=== PATIENT | female | born 1965 | race Caucasian/White ===

== ENCOUNTER → 2016-09-08 | Outpatient (CLI) | payer OTHER ==
[~2016-09-08] MED LIST: /BACL20TA OR; /DULO30CA OR; /PANT40TA; /PANT40TA PO; /ROPI5TA OR; ABIL2TAB OR; ACET500C OR; AMBIEN PO; BACL-67 PO; BENA25CA2 PO; BISA5TAB64 PO; CLON0.1D3 TD; CLON1PA TD; CLON2PA TD; COGE1INJ OR; COLA50CA OR; COZA1TAB PO; CYMB1CAP4 PO; DIAZ2TAB PO; DIAZ5TAB OR; DIAZ5TAB PO; DOXY100T16 PO; DOXY20TA; FOSI1TAB8 PO; HUMA100I5 SC; IBUP800T23 PO; IBUPOTC PO; IMIT5SPR OR; INSUDET SC; INSUHUMDS SC; K-TA1TAB PO; LASI20TA OR; LIDO5DIS TOP; LYRI150C OR; MORP30TASA PO; MS C15TA5 OR; MYLASSUD PO; NYST100024 TOP; PERC5TAB8; PERC7.5T3 PO; PERCOCET PO; PRIL20CA OR; ROPI1TAB PO; TAGA200T PO; THERGRAN OR; TIZA4CAP3 PO; TIZA4TAB OR; TRAM50TA2 OR; TYLENOL #3 OR; VALI2TAB PO; VALI5TAB PO; VICO5TAB OR; VICO5TAB PO; VITAMIN B COMPLE1 OR; VOLT1GEL EX; [UNRECOGNIZED DRUG - OTHER] TOP; [UNRECOGNIZED DRUG - SUPPLY] VI; benedryl PO; ibuprofen PO
== END ==
LOC: M LAB 08:11
PROVIDERS: ATTEND Internal Medicine Endocrinology, Diabetes & Metabolism
DX: R63.5 Abnormal weight gain (principal); Z79.899 Other long term (current) drug therapy
CPT/HCPCS: 36415; 82533; G0480

== ENCOUNTER 2016-09-18 12:42 | Emergency (ER) | payer OTHER ==
[2016-09-18] MEDS ORDERED: CLINDAMYCIN INJ 900MG/6ML VIAL As Ordered ONE (14:20)
[2016-09-18] MEDS ORDERED: MORPHINE 4 MG/ML 1ML SYRINGE As Ordered ONE (14:20)
[2016-09-18 14:23] LABS: BASO % 0.6 % (0.0-1.0); EOS # 0.1 K/mm3 (0.0-0.50); EOS % 2.1 % (0.0-3.0); LARGE UNSTAINED CELL # 0.2 K/mm3 (0.0-0.4); LARGE UNSTAINED CELL % 3.1 % (0.0-4.0); LYMPH # 1.7 K/mm3 (1.5-4.5); LYMPH % 24.9 % (24.0-44.0); MEAN CORPUSCULAR HEMOGLOBIN 29.9 pg (27.0-33.0); MEAN CORPUSCULAR HGB CONC 33.5 g/dl (32.0-36.5); MEAN CORPUSCULAR VOLUME 89.2 fl (80.0-96.0); MONO # 0.4 K/mm3 (0.0-0.8); NEUTROPHILS # 4.3 K/mm3 (1.8-7.7); NEUTROPHILS % 63.4 % (36.0-66.0); PLATELET COUNT, AUTOMATED 166 k/mm3 (150-450); RED CELL DISTRIBUTION WIDTH 13.3 % (11.5-14.5); WHITE BLOOD COUNT 6.8 K/mm3 (4.0-10.0)
[2016-09-18 14:33] LABS: ANION GAP 7 MEQ/L (8-16); BLOOD UREA NITROGEN 11 MG/DL (7-18); CALCIUM LEVEL 8.6 MG/DL (8.5-10.1); CARBON DIOXIDE LEVEL 31 MEQ/L (21-32); CHLORIDE LEVEL 95 MEQ/L (98-107); CREATININE FOR GFR 0.82 MG/DL (0.55-1.02); GLOMERULAR FILTRATION RATE > 60.0 (>51); GLUCOSE, FASTING 330 MG/DL (70-105); POTASSIUM SERUM 3.5 MEQ/L (3.5-5.1); SODIUM LEVEL 133 MEQ/L (136-145)
[2016-09-18] MEDS ORDERED: ISOVUE-370 76% 100ML VIAL (Q9967) As Ordered ONE (14:50)
--- NOTE | 2016-09-18 15:53 | REP ---
CT NECK WITH CONTRAST: HISTORY: A sinus infection. CONTRAST: Isovue 370, 75 mL. The naso-, radha-, and hypopharynx, larynx and subglottic trachea are normal in appearance. The salivary and thyroid glands are normal. Small lymph nodes less than 1 cm in size are present in the internal jugular chains, posterior triangles, submandibular and submental areas. There is no neck mass or adenopathy. Minimal mucosal thickening is present in the right maxillary sinus. The remaining sinuses are clear. IMPRESSION: 1. There is no neck mass or adenopathy. 2. Minimal right maxillary sinus mucosal thickening. Signed by Te Gutiérrez MD 09/18/2016 03:55 P
--- NOTE | 2016-09-18 16:44 | EDDOCDS ---
Physician Documentation [facility] Name: Gretchen Donaldson Age: 51 yrs Sex: Female : 1965 Arrival Date: 09/18/2016 Time: 12:42 Bed I1 / M1 Private MD: Nish Mcmillan M.D. Disposition: 09/18/16 16:06 Discharged to Home/Self Care. Impression: Acute gingivitis, Acute sinusitis, unspecified. - Condition is Stable. - Discharge Instructions: Gingivitis, Sinusitis, Adult. - Prescriptions for Amoxicillin 875 mg Oral Tablet - take 1 tablet by ORAL route every 12 hours for 7 days; 14 tablet. - Medication Reconciliation, Local Pharmacy Hours form. - Follow up: Nish Mcmillan; When: As needed; Reason: Recheck today's complaints, Continuance of care. Follow up: Дмитрий Palafox; When: As previously arranged; Reason: Recheck today's complaints, Continuance of care. Follow up: Emergency Department; When: As needed; Reason: Fever > 102F, Trouble breathing, Worsening of conditions. - Problem is new. - Symptoms have improved. Historical: - Allergies: Augmentin; Clonidine; Compazine; Humulin N; Lantus; Levemir; Novolog; Reglan; tribelus; Zofran; all insulins; Naproxen; Celebrex; Mobic; - Home Meds: 1. linezolid 600 mg oral tab 1 tab every 12 hours 2. Lidocaine Viscous 2 % Oral soln 15 mL every 3 hours 3. baclofen 20 mg Oral tab 2 tab 3 times per day 4. Cymbalta 20 mg Oral cpDR 1 cap daily holding due to taking linezolid 5. diazepam 5 mg Oral tab 1 tab 4 times per day 6. diazepam 2 mg Oral tab 1 tab 2 times per day 7. Fish Oil 500 mg Oral cap daily 8. fosinopril 20 mg oral tab 1 tab 2 times per day 9. ibuprofen 800 mg Oral tab 1 tab 3 times per day (Last dose: 09/18/2016 08:00) 10. morphine 30 mg Oral CERP 1 cap 2 times per day 11. Humalog 1 unit Sub-Q before meals 12. Requip 1 mg Oral tab twice a day prn 13. tizanidine 4 mg oral cap 3 times per day 14. Protonix 20 mg Oral TbEC 1 tab 2 times per day 15. ranitidine HCl 150 mg Oral cap 2 times per day 16. Lasix 20 mg Oral tab once daily 17. lutein oral Unknown oral daily 18. potassium chloride 10 mEq Oral cpER 1 cap once daily 19. magnesium Unknown daily 20. Benadryl 100mg Oral twice a day 21. Percocet 10-325 mg Oral tab twice a day prn - PMHx: bilateral knee pain; Cataracts; DDD; Diabetes - IDDM: controlled; Hypertension; Macular Degeneration; RSD left ankle and knee; GERD; bulging discs; - PSHx: Tonsillectomy; Hysterectomy; Adenoidectomy; saphenous vein removal (right); Tarsal nerve release (left foot(); bilateral knee surgery; Gall Bladder Removal; - Social history: Smoking status: Patient uses tobacco products, current every day smoker. No barriers to communication noted, The patient speaks fluent Bulgarian, Speaks appropriately for age. - Family history: Not pertinent. - : The pt / caregiver states he / she is not on anticoagulants. Home medication list is obtained from the patient. - Exposure Risk Screening:: Recent exposure to flu. 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 6 in. (167.64 cm) (R); 16:12 BP 149 / 93; Pulse 90; Resp 18; Temp 97.9(O); Pulse Ox 96% on R/A; Pain 2/10; nb2 12:44 Body Mass Index 43.90 (123.38 kg, 167.64 cm) dd6 MDM: 13:35 Financial registration complete. lg 13:46 IV Saline Lock ordered. ar2 13:46 -Blood Culture (Adults Only), peripheral from different site, or from device/port/PICC ar2 etc. if present ordered. 13:46 morphine 4 mg IVP once ordered. ar2 13:46 Clindamycin 900 mg IVPB once over 30 mins; dilute in 50mL of NS or D5W ordered. ar2 13:46 NS 0.9% 1000 ml IV at bolus once ordered. ar2 13:47 CBC with Diff Ordered. EDMS 13:47 MED Profile Ordered. EDMS 13:47 Lactic Acid (Ceron tube on ice) Ordered. EDMS 13:47 -Blood Culture Ordered. EDMS 13:48 CT Neck With Contrast Ordered. EDMS 14:21 -Blood Culture (Adults Only), peripheral from different site, or from device/port/PICC jb5 etc. if present complete. 14:22 BLOOD CULTURES Ordered. EDMS 14:23 [facility] Payment Agreement was scanned into [employer] and attached to record. lg 15:51 CBC with Diff Reviewed. ar2 15:51 MED Profile Reviewed. ar2 15:51 Lactic Acid (Ceron tube on ice) Reviewed. ar2 Administered Medications: 14:29 Drug: morphine 4 mg Route: IVP; Site: left antecubital; jmk 15:37 Follow up: Response: Pain is decreased jmk 14:29 Drug: NS 0.9% 1000 ml Route: IV; Rate: bolus; Site: left antecubital; k 14:43 Drug: Clindamycin 900 mg [clindamycin 150 mg/mL injection solution] Route: IVPB; kc3 Infused Over: 30 mins; Site: right antecubital; 15:37 Follow up: IV Status: Completed infusion jmk 16:00 Follow up: IV Status: Completed infusion kc3 Signatures: Dispatcher [employer] EDKristi Bernard, RN RN srm Ruchi Lucas, Reg Reg lg Coombs, Amber, CHAIR MECHANIC CHAIR MECHANIC jb5 Warner Gonzalez, SHANDA PAMichi ar2 Fabrizio Landaverde RN RN jf3 Franco Soto RN, Kelsi RN kc3 The chart was reviewed and I authenticate all verbal orders and agree with the evaluation and treatment provided.Attachments: 14:23 [facility] Payment Agreement lg MTDD
--- NOTE | 2016-09-18 16:44 | EDDOCDS ---
Nurse's Notes [facility] Name: Gretchen Donaldson Age: 51 yrs Sex: Female : 1965 Arrival Date: 09/18/2016 Time: 12:42 Bed I1 / M1 Private MD: Nish Mcmillan M.D. Diagnosis: Acute gingivitis;Acute sinusitis, unspecified Presentation: 09/18 12:51 Presenting complaint: Patient states: abscess and cellulitis to mouth- abscess to upper srm palette since February. went to ENT and they wanted to put drain in pt refused last Wednesday it started to drain. increase pain. went to [employer] [facility] earlier in the week and started on linezolid and lidocaine oral solution. temp 102.6 last night. Adult Sepsis Screening: The patient does not have new or worsening altered mentation. Patient's respiratory rate is less than 22. Systolic blood pressure is greater than 100. Patient has a qSOFA score of 0- Negative Sepsis Screen. Suicide/Homicide risk assessment- the patient denies having any suicidal and/or homicidal ideations and does not present with any other emotional, behavioral or mental health complaints. 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 Transition of care: Patient was received from [facility]. 12:51 Acuity: JARON Level 3 srm 12:51 Method Of Arrival: Walkin/Carried/Asstd srm Triage Assessment: 13:02 General: Appears in no apparent distress, Behavior is anxious. Pain: Pain currently is srm 8 out of 10 on a pain scale. HIV screening NA for this visit Offered previously. 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 linezolid 600 mg oral tab 1 tab every 12 hours 2. Lidocaine Viscous 2 % Oral soln 15 mL every 3 hours 3. baclofen 20 mg Oral tab 2 tab 3 times per day 4. Cymbalta 20 mg Oral cpDR 1 cap daily holding due to taking linezolid 5. diazepam 5 mg Oral tab 1 tab 4 times per day 6. diazepam 2 mg Oral tab 1 tab 2 times per day 7. Fish Oil 500 mg Oral cap daily 8. fosinopril 20 mg oral tab 1 tab 2 times per day 9. ibuprofen 800 mg Oral tab 1 tab 3 times per day (Last dose: 09/18/2016 08:00) 10. morphine 30 mg Oral CERP 1 cap 2 times per day 11. Humalog 1 unit Sub-Q before meals 12. Requip 1 mg Oral tab twice a day prn 13. tizanidine 4 mg oral cap 3 times per day 14. Protonix 20 mg Oral TbEC 1 tab 2 times per day 15. ranitidine HCl 150 mg Oral cap 2 times per day 16. Lasix 20 mg Oral tab once daily 17. lutein oral Unknown oral daily 18. potassium chloride 10 mEq Oral cpER 1 cap once daily 19. magnesium Unknown daily 20. Benadryl 100mg Oral twice a day 21. Percocet 10-325 mg Oral tab twice a day prn - PMHx: bilateral knee pain; Cataracts; DDD; Diabetes - IDDM: controlled; Hypertension; Macular Degeneration; RSD left ankle and knee; GERD; bulging discs; - PSHx: Tonsillectomy; Hysterectomy; Adenoidectomy; saphenous vein removal (right); Tarsal nerve release (left foot(); bilateral knee surgery; Gall Bladder Removal; - Social history: Smoking status: Patient uses tobacco products, current every day smoker. No barriers to communication noted, The patient speaks fluent Hong Konger, Speaks appropriately for age. - Family history: Not pertinent. - : The pt / caregiver states he / she is not on anticoagulants. Home medication list is obtained from the patient. - Exposure Risk Screening:: Recent exposure to flu. Screenin:41 Screening information is obtained from the patient. Fall risk: No risks identified. jf3 Assistance ADL's: requires no assistance with activities of daily living. Abuse/DV Screen: The patient / caregiver reports he/she is: not in a situation that causes fear, pain or injury. Nutritional screening: No deficits noted. Advance Directives: There is no active DNR order. home support is adequate. Assessment: 16:41 General: Appears in no apparent distress, comfortable, Behavior is cooperative. jf3 Neurological: Level of Consciousness is awake, alert, Oriented to person, place, time. Cardiovascular: Capillary refill < 3 seconds. Respiratory: Airway is patent Respiratory effort is even, unlabored, Respiratory pattern is regular, symmetrical. Derm: Skin is pink, warm & dry. Vital Signs: 12:44 BP 165 / 97; Pulse 104; Resp 18 S; Temp 97.6(O); Pulse Ox 96% on R/A; Weight 123.38 kg dd6 (R); Height 5 ft. 6 in. (167.64 cm) (R); 16:12 BP 149 / 93; Pulse 90; Resp 18; Temp 97.9(O); Pulse Ox 96% on R/A; Pain 2/10; nb2 12:44 Body Mass Index 43.90 (123.38 kg, 167.64 cm) dd6 Vitals: 12:44 Log In Time: September 18, 2016 at 12:42. dd6 ED Course: 12:43 Patient visited by Obi Jordan PCA. dd6 12:43 Nish Mcmillan is Private Physician. dd6 12:43 Patient moved to Waiting dd6 12:44 Patient moved to Pre RCE dd6 12:54 Triage Initiated srm 13:14 Patient moved to Triage 1 jb5 13:19 Patient visited by Amber Coombs PCA. jb5 13:26 Warner Gonzalez PA-C is PHCP. ar2 13:26 Felicity Trammell MD is Attending Physician. ar2 13:28 Patient visited by Warner Gonzalez PA-C. ar2 13:46 Patient moved to I1 / M1 jb5 14:23 [facility] Payment Agreement was scanned into [email or web address]. and attached to record. lg 14:35 Patient visited by Amber Coombs PCA. jb5 14:35 BLOOD CULTURES Sent. jb5 15:36 Patient visited by Nunu Mayes. nb2 16:04 Nish Mcmillan is Referral Physician. ar2 16:04 Дмитрий Palafox is Referral Physician. ar2 16:12 Patient visited by Nunu Mayes. nb2 16:22 CT Neck With Contrast Returned. EDMS 16:41 The patient / caregiver is instructed regarding the plan of care and ED course. jf3 16:41 Discontinued IV lock intact, bleeding controlled, pressure dressing applied, No jf3 redness/swelling at site. No procedures done that require assistance. Administered Medications: 14:29 Drug: morphine 4 mg Route: IVP; Site: left antecubital; [facility] 15:37 Follow up: Response: Pain is decreased jmk 14:29 Drug: NS 0.9% 1000 ml Route: IV; Rate: bolus; Site: left antecubital; k 14:43 Drug: Clindamycin 900 mg [clindamycin 150 mg/mL injection solution] Route: IVPB; kc3 Infused Over: 30 mins; Site: right antecubital; 15:37 Follow up: IV Status: Completed infusion [facility] 16:00 Follow up: IV Status: Completed infusion kc3 Order Results: Lab Order: CBC with Diff; SPEC'M 09/18/16 13:58 Test: WHITE BLOOD COUNT; Value: 6.8; Range: 4.0-10.0; Units: K/mm3; Status: F Test: RED BLOOD COUNT; Value: 5.41; Range: 4.00-5.40; Abnormal: Above high normal; Units: M/mm3; Status: F Test: HEMOGLOBIN; Value: 16.2; Range: 12.0-16.0; Abnormal: Above high normal; Units: g/dl; Status: F Test: HEMATOCRIT; Value: 48.3; Range: 36.0-47.0; Abnormal: Above high normal; Units: %; Status: F Test: MEAN CORPUSCULAR VOLUME; Value: 89.2; Range: 80.0-96.0; Units: fl; Status: F Test: MEAN CORPUSCULAR HEMOGLOBIN; Value: 29.9; Range: 27.0-33.0; Units: pg; Status: F Test: MEAN CORPUSCULAR HGB CONC; Value: 33.5; Range: 32.0-36.5; Units: g/dl; Status: F Test: RED CELL DISTRIBUTION WIDTH; Value: 13.3; Range: 11.5-14.5; Units: %; Status: F Test: PLATELET COUNT, AUTOMATED; Value: 166; Range: 150-450; Units: k/mm3; Status: F Test: NEUTROPHILS %; Value: 63.4; Range: 36.0-66.0; Units: %; Status: F Test: LYMPH %; Value: 24.9; Range: 24.0-44.0; Units: %; Status: F Test: MONO %; Value: 6.0; Range: 0.0-5.0; Abnormal: Above high normal; Units: %; Status: F Test: EOS %; Value: 2.1; Range: 0.0-3.0; Units: %; Status: F Test: BASO %; Value: 0.6; Range: 0.0-1.0; Units: %; Status: F Test: LARGE UNSTAINED CELL %; Value: 3.1; Range: 0.0-4.0; Units: %; Status: F Test: NEUTROPHILS #; Value: 4.3; Range: 1.8-7.7; Units: K/mm3; Status: F Test: LYMPH #; Value: 1.7; Range: 1.5-4.5; Units: K/mm3; Status: F Test: MONO #; Value: 0.4; Range: 0.0-0.8; Units: K/mm3; Status: F Test: EOS #; Value: 0.1; Range: 0.0-0.50; Units: K/mm3; Status: F Test: BASO #; Value: 0.0; Range: 0.0-0.2; Units: K/mm3; Status: F Test: LARGE UNSTAINED CELL #; Value: 0.2; Range: 0.0-0.4; Units: K/mm3; Status: F Lab Order: [facility] Profile; SPEC'M 09/18/16 13:58 Test: GLUCOSE, FASTING; Value: 330; Range: 70-105; Abnormal: Above high normal; Units: MG/DL; Status: F Test: BLOOD UREA NITROGEN; Value: 11; Range: 7-18; Units: MG/DL; Status: F Test: CREATININE FOR GFR; Value: 0.82; Range: 0.55-1.02; Units: MG/DL; Status: F Test: GLOMERULAR FILTRATION RATE; Value: > 60.0; Range: >51; Status: F Test: SODIUM LEVEL; Value: 133; Range: 136-145; Abnormal: Below low normal; Units: MEQ/L; Status: F Test: POTASSIUM SERUM; Value: 3.5; Range: 3.5-5.1; Units: MEQ/L; Status: F Test: CHLORIDE LEVEL; Value: 95; Range: 98-107; Abnormal: Below low normal; Units: MEQ/L; Status: F Test: CARBON DIOXIDE LEVEL; Value: 31; Range: 21-32; Units: MEQ/L; Status: F Test: ANION GAP; Value: 7; Range: 8-16; Abnormal: Below low normal; Units: MEQ/L; Status: F Test: CALCIUM LEVEL; Value: 8.6; Range: 8.5-10.1; Units: MG/DL; Status: F Test Note: ; Units are mL/min/1.73 m2 Chronic Kidney Disease Staging per NKF: Stage I & II GFR >=60 Normal to Mildly Decreased Stage III GFR 30-59 Moderately Decreased Stage IV GFR 15-29 Severely Decreased Stage V GFR <15 Very Little GFR Left ESRD GFR <15 on [employer] Lab Order: Lactic Acid (Ceron tube on ice); SPEC'M 09/18/16 13:58 Test: LACTIC ACID LEVEL, LACTATE; Value: 0.8; Range: 0.4-2.0; Units: MMOL/L; Status: F Radiology Order: CT Neck With Contrast Test: CT Neck With Contrast REASON FOR EXAMINATION: ? palate abscess/sinus infection; CT NECK WITH CONTRAST:; ; HISTORY: A sinus infection.; ; CONTRAST: Isovue 370, 75 mL.; ; The naso-, radha-, and hypopharynx, larynx and subglottic trachea are normal in; appearance. The salivary and thyroid glands are normal. Small lymph nodes less; than 1 cm in size are present in the internal jugular chains, posterior; triangles, submandibular and submental areas. There is no neck mass or; adenopathy. Minimal mucosal thickening is present in the right maxillary sinus.; The remaining sinuses are clear.; ; IMPRESSION:; ; 1. There is no neck mass or adenopathy.; ; 2. Minimal right maxillary sinus mucosal thickening.; ; ; Signed by; Te Gutiérrez MD 09/18/2016 03:55 P; Outcome: 16:06 Discharge ordered by Provider. ar2 16:41 Discharge Assessment: Patient awake, alert and oriented x 3. No cognitive and/or jf3 functional deficits noted. Patient verbalized understanding of disposition instructions. 16:42 Discharge Assessment: patient administered narcotics - yes. Pt provided with safe jf3 discharge. The following High Risk Discharge criteria are identified: None. Discharged to home ambulatory, with family. Condition: stable. Discharge instructions given to patient, Instructed on discharge instructions, follow up and referral plans. medication usage, Demonstrated understanding of instructions, medications, Pt was receptive of discharge instructions/ teaching. CT Study completed. Property :Personal belongings accompany Pt. 16:43 Patient left the ED. jf3 Signatures: Dispatcher Med[employer] EDMS Franco Soto,RN RN Kristi Blood RN RN [facility] Ruchi Lucas, Reg Reg lg Amber Coombs, PAGE TECHNICIAN PAGE TECHNICIAN jb5 Warner Gonzalez, SHELLEY-Calvin PA-C ar2 Obi Jordan, PAGE TECHNICIAN PAGE TECHNICIAN dd6 Lizbeth Simons RN RN kc3 Fabrizio Landaverde,KRISTEN RN jf3 Nunu Mayes2 MTDD
--- NOTE | 2016-09-20 17:44 | EDDOCDS ---
Physician Documentation [facility] Name: Gretchen Donaldson Age: 51 yrs Sex: Female : 1965 Arrival Date: 09/18/2016 Time: 12:42 Bed I1 / M1 Private MD: Nish Mcmillan M.D. Disposition: 09/18/16 16:06 Discharged to Home/Self Care. Impression: Acute gingivitis, Acute sinusitis, unspecified. - Condition is Stable. - Discharge Instructions: Gingivitis, Sinusitis, Adult. - Prescriptions for Amoxicillin 875 mg Oral Tablet - take 1 tablet by ORAL route every 12 hours for 7 days; 14 tablet. - Medication Reconciliation, Local Pharmacy Hours form. - Follow up: Nish Mcmillan; When: As needed; Reason: Recheck today's complaints, Continuance of care. Follow up: Дмитрий Palafox; When: As previously arranged; Reason: Recheck today's complaints, Continuance of care. Follow up: Emergency Department; When: As needed; Reason: Fever > 102F, Trouble breathing, Worsening of conditions. - Problem is new. - Symptoms have improved. Historical: - Allergies: Augmentin; Clonidine; Compazine; Humulin N; Lantus; Levemir; Novolog; Reglan; tribelus; Zofran; all insulins; Naproxen; Celebrex; Mobic; - Home Meds: 1. linezolid 600 mg oral tab 1 tab every 12 hours 2. Lidocaine Viscous 2 % Oral soln 15 mL every 3 hours 3. baclofen 20 mg Oral tab 2 tab 3 times per day 4. Cymbalta 20 mg Oral cpDR 1 cap daily holding due to taking linezolid 5. diazepam 5 mg Oral tab 1 tab 4 times per day 6. diazepam 2 mg Oral tab 1 tab 2 times per day 7. Fish Oil 500 mg Oral cap daily 8. fosinopril 20 mg oral tab 1 tab 2 times per day 9. ibuprofen 800 mg Oral tab 1 tab 3 times per day (Last dose: 09/18/2016 08:00) 10. morphine 30 mg Oral CERP 1 cap 2 times per day 11. Humalog 1 unit Sub-Q before meals 12. Requip 1 mg Oral tab twice a day prn 13. tizanidine 4 mg oral cap 3 times per day 14. Protonix 20 mg Oral TbEC 1 tab 2 times per day 15. ranitidine HCl 150 mg Oral cap 2 times per day 16. Lasix 20 mg Oral tab once daily 17. lutein oral Unknown oral daily 18. potassium chloride 10 mEq Oral cpER 1 cap once daily 19. magnesium Unknown daily 20. Benadryl 100mg Oral twice a day 21. Percocet 10-325 mg Oral tab twice a day prn - PMHx: bilateral knee pain; Cataracts; DDD; Diabetes - IDDM: controlled; Hypertension; Macular Degeneration; RSD left ankle and knee; GERD; bulging discs; - PSHx: Tonsillectomy; Hysterectomy; Adenoidectomy; saphenous vein removal (right); Tarsal nerve release (left foot(); bilateral knee surgery; Gall Bladder Removal; - Social history: Smoking status: Patient uses tobacco products, current every day smoker. No barriers to communication noted, The patient speaks fluent Anguillan, Speaks appropriately for age. - Family history: Not pertinent. - : The pt / caregiver states he / she is not on anticoagulants. Home medication list is obtained from the patient. - Exposure Risk Screening:: Recent exposure to flu. 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 6 in. (167.64 cm) (R); 16:12 BP 149 / 93; Pulse 90; Resp 18; Temp 97.9(O); Pulse Ox 96% on R/A; Pain 2/10; nb2 12:44 Body Mass Index 43.90 (123.38 kg, 167.64 cm) dd6 MDM: 13:35 Financial registration complete. lg 13:46 IV Saline Lock ordered. ar2 13:46 -Blood Culture (Adults Only), peripheral from different site, or from device/port/PICC ar2 etc. if present ordered. 13:46 morphine 4 mg IVP once ordered. ar2 13:46 Clindamycin 900 mg IVPB once over 30 mins; dilute in 50mL of NS or D5W ordered. ar2 13:46 NS 0.9% 1000 ml IV at bolus once ordered. ar2 13:47 CBC with Diff Ordered. EDMS 13:47 MED Profile Ordered. EDMS 13:47 Lactic Acid (Ceron tube on ice) Ordered. EDMS 13:47 -Blood Culture Ordered. EDMS 13:48 CT Neck With Contrast Ordered. EDMS 14:21 -Blood Culture (Adults Only), peripheral from different site, or from device/port/PICC jb5 etc. if present complete. 14:22 BLOOD CULTURES Ordered. EDMS 14:23 [facility] Payment Agreement was scanned into [employer] and attached to record. lg 15:51 CBC with Diff Reviewed. ar2 15:51 MED Profile Reviewed. ar2 15:51 Lactic Acid (Ceron tube on ice) Reviewed. ar2 09/19 09:28 T-Sheet-- Draft Copy was scanned into [employer] and attached to record. gb 09:28 Radiology Report was scanned into [employer] and attached to record. gb Administered Medications: 09/18 14:29 Drug: morphine 4 mg Route: IVP; Site: left antecubital; [facility] 15:37 Follow up: Response: Pain is decreased jmk 14:29 Drug: NS 0.9% 1000 ml Route: IV; Rate: bolus; Site: left antecubital; [facility] 14:43 Drug: Clindamycin 900 mg [clindamycin 150 mg/mL injection solution] Route: IVPB; kc3 Infused Over: 30 mins; Site: right antecubital; 15:37 Follow up: IV Status: Completed infusion k 16:00 Follow up: IV Status: Completed infusion kc3 Signatures: Dispatcher [employer] EDMS Kristi Carpenter, KRISTEN PETERSON [facility] Afshan Gamez, Reg Reg gb Ruchi Lucas, Reg Reg lg Amber Coombs, CATALYST RECOVERY OPERATOR CATALYST RECOVERY OPERATOR jb5 Warner Gonzalez, PAMichi PARajiC ar2 Fabrizio Landaverde RN RN jf3 Knapp, Jean RN jmk Crane, Kelsi RN kc3 The chart was reviewed and I authenticate all verbal orders and agree with the evaluation and treatment provided.Attachments: 14:23 [facility] Payment Agreement lg 09/19 09:28 T-Sheet-- Draft Copy gb Chart Complete MTDD
--- NOTE | 2016-09-20 17:45 | EDDOCDS ---
Physician Documentation [facility] Name: Gretchen Donaldson Age: 51 yrs Sex: Female : 1965 Arrival Date: 09/18/2016 Time: 12:42 Bed I1 / M1 Private MD: Nish Mcmillan M.D. Disposition: 09/18/16 16:06 Discharged to Home/Self Care. Impression: Acute gingivitis, Acute sinusitis, unspecified. - Condition is Stable. - Discharge Instructions: Gingivitis, Sinusitis, Adult. - Prescriptions for Amoxicillin 875 mg Oral Tablet - take 1 tablet by ORAL route every 12 hours for 7 days; 14 tablet. - Medication Reconciliation, Local Pharmacy Hours form. - Follow up: Nish Mcmillan; When: As needed; Reason: Recheck today's complaints, Continuance of care. Follow up: Дмитрий Palafox; When: As previously arranged; Reason: Recheck today's complaints, Continuance of care. Follow up: Emergency Department; When: As needed; Reason: Fever > 102F, Trouble breathing, Worsening of conditions. - Problem is new. - Symptoms have improved. Historical: - Allergies: Augmentin; Clonidine; Compazine; Humulin N; Lantus; Levemir; Novolog; Reglan; tribelus; Zofran; all insulins; Naproxen; Celebrex; Mobic; - Home Meds: 1. linezolid 600 mg oral tab 1 tab every 12 hours 2. Lidocaine Viscous 2 % Oral soln 15 mL every 3 hours 3. baclofen 20 mg Oral tab 2 tab 3 times per day 4. Cymbalta 20 mg Oral cpDR 1 cap daily holding due to taking linezolid 5. diazepam 5 mg Oral tab 1 tab 4 times per day 6. diazepam 2 mg Oral tab 1 tab 2 times per day 7. Fish Oil 500 mg Oral cap daily 8. fosinopril 20 mg oral tab 1 tab 2 times per day 9. ibuprofen 800 mg Oral tab 1 tab 3 times per day (Last dose: 09/18/2016 08:00) 10. morphine 30 mg Oral CERP 1 cap 2 times per day 11. Humalog 1 unit Sub-Q before meals 12. Requip 1 mg Oral tab twice a day prn 13. tizanidine 4 mg oral cap 3 times per day 14. Protonix 20 mg Oral TbEC 1 tab 2 times per day 15. ranitidine HCl 150 mg Oral cap 2 times per day 16. Lasix 20 mg Oral tab once daily 17. lutein oral Unknown oral daily 18. potassium chloride 10 mEq Oral cpER 1 cap once daily 19. magnesium Unknown daily 20. Benadryl 100mg Oral twice a day 21. Percocet 10-325 mg Oral tab twice a day prn - PMHx: bilateral knee pain; Cataracts; DDD; Diabetes - IDDM: controlled; Hypertension; Macular Degeneration; RSD left ankle and knee; GERD; bulging discs; - PSHx: Tonsillectomy; Hysterectomy; Adenoidectomy; saphenous vein removal (right); Tarsal nerve release (left foot(); bilateral knee surgery; Gall Bladder Removal; - Social history: Smoking status: Patient uses tobacco products, current every day smoker. No barriers to communication noted, The patient speaks fluent [place], Speaks appropriately for age. - Family history: Not pertinent. - : The pt / caregiver states he / she is not on anticoagulants. Home medication list is obtained from the patient. - Exposure Risk Screening:: Recent exposure to flu. TOLL COLLECTOR: 09/18 13:02 LMP N/A - Hysterectomy srm Vital Signs: 12:44 BP 165 / 97; Pulse 104; Resp 18 S; Temp 97.6(O); Pulse Ox 96% on R/A; Weight 123.38 kg dd6 / 272.01 lbs (R); Height 5 ft. 6 in. (167.64 cm) (R); 16:12 BP 149 / 93; Pulse 90; Resp 18; Temp 97.9(O); Pulse Ox 96% on R/A; Pain 2/10; nb2 12:44 Body Mass Index 43.90 (123.38 kg, 167.64 cm) dd6 MDM: 13:35 Financial registration complete. lg 13:46 IV Saline Lock ordered. ar2 13:46 -Blood Culture (Adults Only), peripheral from different site, or from device/port/PICC ar2 etc. if present ordered. 13:46 morphine 4 mg IVP once ordered. ar2 13:46 Clindamycin 900 mg IVPB once over 30 mins; dilute in 50mL of NS or D5W ordered. ar2 13:46 NS 0.9% 1000 ml IV at bolus once ordered. ar2 13:47 CBC with Diff Ordered. EDMS 13:47 MED Profile Ordered. EDMS 13:47 Lactic Acid (Ceron tube on ice) Ordered. EDMS 13:47 -Blood Culture Ordered. EDMS 13:48 CT Neck With Contrast Ordered. EDMS 14:21 -Blood Culture (Adults Only), peripheral from different site, or from device/port/PICC jb5 etc. if present complete. 14:22 BLOOD CULTURES Ordered. EDMS 14:23 [facility] Payment Agreement was scanned into [employer] and attached to record. lg 15:51 CBC with Diff Reviewed. ar2 15:51 MED Profile Reviewed. ar2 15:51 Lactic Acid (Ceron tube on ice) Reviewed. ar2 09/19 09:28 T-Sheet-- Draft Copy was scanned into [employer] and attached to record. gb 09:28 Radiology Report was scanned into [employer] and attached to record. gb Administered Medications: 09/18 14:29 Drug: morphine 4 mg Route: IVP; Site: left antecubital; [facility] 15:37 Follow up: Response: Pain is decreased jmk 14:29 Drug: NS 0.9% 1000 ml Route: IV; Rate: bolus; Site: left antecubital; [facility] 14:43 Drug: Clindamycin 900 mg [clindamycin 150 mg/mL injection solution] Route: IVPB; kc3 Infused Over: 30 mins; Site: right antecubital; 15:37 Follow up: IV Status: Completed infusion k 16:00 Follow up: IV Status: Completed infusion kc3 Signatures: Dispatcher [employer] EDMS Kristi Carpenter, KRISTEN PETERSON [facility] Afshan Gamez, Reg Reg gb Ruchi Lucas, Reg Reg lg Amber Coombs, GRADES 1 THROUGH 5 TEACHER GRADES 1 THROUGH 5 TEACHER jb5 Warner Gonzalez, PAMichi PARajiC ar2 Fabrizio Landaverde RN RN jf3 Knapp, Jean RN jmk Crane, Kelsi RN kc3 The chart was reviewed and I authenticate all verbal orders and agree with the evaluation and treatment provided.Attachments: 14:23 [facility] Payment Agreement lg 09/19 09:28 T-Sheet-- Draft Copy gb Chart Complete MTDD
--- NOTE | 2016-09-20 17:45 | EDDOCDS ---
Nurse's Notes [facility] Name: Gretchen Donaldson Age: 51 yrs Sex: Female : 1965 Arrival Date: 09/18/2016 Time: 12:42 Bed I1 / M1 Private MD: Nish Mcmillan M.D. Diagnosis: Acute gingivitis;Acute sinusitis, unspecified Presentation: 09/18 12:51 Presenting complaint: Patient states: abscess and cellulitis to mouth- abscess to upper srm palette since February. went to ENT and they wanted to put drain in pt refused last Wednesday it started to drain. increase pain. went to [facility] earlier in the week and started on linezolid and lidocaine oral solution. temp 102.6 last night. Adult Sepsis Screening: The patient does not have new or worsening altered mentation. Patient's respiratory rate is less than 22. Systolic blood pressure is greater than 100. Patient has a qSOFA score of 0- Negative Sepsis Screen. Suicide/Homicide risk assessment- the patient denies having any suicidal and/or homicidal ideations and does not present with any other emotional, behavioral or mental health complaints. Status: Patient is not a community service coordinator or dependent. Transition of care: Patient was received from [facility]. 12:51 Acuity: JARON Level 3 srm 12:51 Method Of Arrival: Walkin/Carried/Asstd srm Triage Assessment: 13:02 General: Appears in no apparent distress, Behavior is anxious. Pain: Pain currently is srm 8 out of 10 on a pain scale. HIV screening NA for this visit Offered previously. CLAIMS DIRECTOR: 13:02 LMP N/A - Hysterectomy srm Historical: - Allergies: Augmentin; Clonidine; Compazine; Humulin N; Lantus; Levemir; Novolog; Reglan; tribelus; Zofran; all insulins; Naproxen; Celebrex; Mobic; - Home Meds: 1. linezolid 600 mg oral tab 1 tab every 12 hours 2. Lidocaine Viscous 2 % Oral soln 15 mL every 3 hours 3. baclofen 20 mg Oral tab 2 tab 3 times per day 4. Cymbalta 20 mg Oral cpDR 1 cap daily holding due to taking linezolid 5. diazepam 5 mg Oral tab 1 tab 4 times per day 6. diazepam 2 mg Oral tab 1 tab 2 times per day 7. Fish Oil 500 mg Oral cap daily 8. fosinopril 20 mg oral tab 1 tab 2 times per day 9. ibuprofen 800 mg Oral tab 1 tab 3 times per day (Last dose: 09/18/2016 08:00) 10. morphine 30 mg Oral CERP 1 cap 2 times per day 11. Humalog 1 unit Sub-Q before meals 12. Requip 1 mg Oral tab twice a day prn 13. tizanidine 4 mg oral cap 3 times per day 14. Protonix 20 mg Oral TbEC 1 tab 2 times per day 15. ranitidine HCl 150 mg Oral cap 2 times per day 16. Lasix 20 mg Oral tab once daily 17. lutein oral Unknown oral daily 18. potassium chloride 10 mEq Oral cpER 1 cap once daily 19. magnesium Unknown daily 20. Benadryl 100mg Oral twice a day 21. Percocet 10-325 mg Oral tab twice a day prn - PMHx: bilateral knee pain; Cataracts; DDD; Diabetes - IDDM: controlled; Hypertension; Macular Degeneration; RSD left ankle and knee; GERD; bulging discs; - PSHx: Tonsillectomy; Hysterectomy; Adenoidectomy; saphenous vein removal (right); Tarsal nerve release (left foot(); bilateral knee surgery; Gall Bladder Removal; - Social history: Smoking status: Patient uses tobacco products, current every day smoker. No barriers to communication noted, The patient speaks fluent [place], Speaks appropriately for age. - Family history: Not pertinent. - : The pt / caregiver states he / she is not on anticoagulants. Home medication list is obtained from the patient. - Exposure Risk Screening:: Recent exposure to flu. Screenin:41 Screening information is obtained from the patient. Fall risk: No risks identified. jf3 Assistance ADL's: requires no assistance with activities of daily living. Abuse/DV Screen: The patient / caregiver reports he/she is: not in a situation that causes fear, pain or injury. Nutritional screening: No deficits noted. Advance Directives: There is no active DNR order. home support is adequate. Assessment: 16:41 General: Appears in no apparent distress, comfortable, Behavior is cooperative. jf3 Neurological: Level of Consciousness is awake, alert, Oriented to person, place, time. Cardiovascular: Capillary refill < 3 seconds. Respiratory: Airway is patent Respiratory effort is even, unlabored, Respiratory pattern is regular, symmetrical. Derm: Skin is pink, warm & dry. Vital Signs: 12:44 BP 165 / 97; Pulse 104; Resp 18 S; Temp 97.6(O); Pulse Ox 96% on R/A; Weight 123.38 kg dd6 (R); Height 5 ft. 6 in. (167.64 cm) (R); 16:12 BP 149 / 93; Pulse 90; Resp 18; Temp 97.9(O); Pulse Ox 96% on R/A; Pain 2/10; nb2 12:44 Body Mass Index 43.90 (123.38 kg, 167.64 cm) dd6 Vitals: 12:44 Log In Time: September 18, 2016 at 12:42. dd6 ED Course: 12:43 Patient visited by Obi Jordan PCA. dd6 12:43 Nish Mcmillan is Private Physician. dd6 12:43 Patient moved to Waiting dd6 12:44 Patient moved to Pre RCE dd6 12:54 Triage Initiated srm 13:14 Patient moved to Triage 1 jb5 13:19 Patient visited by Amber Coombs PCA. jb5 13:26 Warner Gonzalez PA-C is PHCP. ar2 13:26 Felicity Trammell MD is Attending Physician. ar2 13:28 Patient visited by Warner Gonzalez PA-C. ar2 13:46 Patient moved to I1 / M1 jb5 14:23 [facility] Payment Agreement was scanned into [employer] and attached to record. lg 14:35 Patient visited by Amber Coombs PCA. jb5 14:35 BLOOD CULTURES Sent. jb5 15:36 Patient visited by Nunu Mayes. nb2 16:04 Nish Mcmillan is Referral Physician. ar2 16:04 Дмитрий Palafox is Referral Physician. ar2 16:12 Patient visited by Nunu Mayes. nb2 16:22 CT Neck With Contrast Returned. EDMS 16:41 The patient / caregiver is instructed regarding the plan of care and ED course. jf3 16:41 Discontinued IV lock intact, bleeding controlled, pressure dressing applied, No jf3 redness/swelling at site. No procedures done that require assistance. 09/19 09:28 T-Sheet-- Draft Copy was scanned into [employer] and attached to record. gb 09:28 Radiology Report was scanned into [employer] and attached to record. gb Administered Medications: 09/18 14:29 Drug: morphine 4 mg Route: IVP; Site: left antecubital; [facility] 15:37 Follow up: Response: Pain is decreased jmk 14:29 Drug: NS 0.9% 1000 ml Route: IV; Rate: bolus; Site: left antecubital; k 14:43 Drug: Clindamycin 900 mg [clindamycin 150 mg/mL injection solution] Route: IVPB; kc3 Infused Over: 30 mins; Site: right antecubital; 15:37 Follow up: IV Status: Completed infusion [facility] 16:00 Follow up: IV Status: Completed infusion kc3 Order Results: Lab Order: CBC with Diff; SPEC'M 09/18/16 13:58 Test: WHITE BLOOD COUNT; Value: 6.8; Range: 4.0-10.0; Units: K/mm3; Status: F Test: RED BLOOD COUNT; Value: 5.41; Range: 4.00-5.40; Abnormal: Above high normal; Units: M/mm3; Status: F Test: HEMOGLOBIN; Value: 16.2; Range: 12.0-16.0; Abnormal: Above high normal; Units: g/dl; Status: F Test: HEMATOCRIT; Value: 48.3; Range: 36.0-47.0; Abnormal: Above high normal; Units: %; Status: F Test: MEAN CORPUSCULAR VOLUME; Value: 89.2; Range: 80.0-96.0; Units: fl; Status: F Test: MEAN CORPUSCULAR HEMOGLOBIN; Value: 29.9; Range: 27.0-33.0; Units: pg; Status: F Test: MEAN CORPUSCULAR HGB CONC; Value: 33.5; Range: 32.0-36.5; Units: g/dl; Status: F Test: RED CELL DISTRIBUTION WIDTH; Value: 13.3; Range: 11.5-14.5; Units: %; Status: F Test: PLATELET COUNT, AUTOMATED; Value: 166; Range: 150-450; Units: k/mm3; Status: F Test: NEUTROPHILS %; Value: 63.4; Range: 36.0-66.0; Units: %; Status: F Test: LYMPH %; Value: 24.9; Range: 24.0-44.0; Units: %; Status: F Test: MONO %; Value: 6.0; Range: 0.0-5.0; Abnormal: Above high normal; Units: %; Status: F Test: EOS %; Value: 2.1; Range: 0.0-3.0; Units: %; Status: F Test: BASO %; Value: 0.6; Range: 0.0-1.0; Units: %; Status: F Test: LARGE UNSTAINED CELL %; Value: 3.1; Range: 0.0-4.0; Units: %; Status: F Test: NEUTROPHILS #; Value: 4.3; Range: 1.8-7.7; Units: K/mm3; Status: F Test: LYMPH #; Value: 1.7; Range: 1.5-4.5; Units: K/mm3; Status: F Test: MONO #; Value: 0.4; Range: 0.0-0.8; Units: K/mm3; Status: F Test: EOS #; Value: 0.1; Range: 0.0-0.50; Units: K/mm3; Status: F Test: BASO #; Value: 0.0; Range: 0.0-0.2; Units: K/mm3; Status: F Test: LARGE UNSTAINED CELL #; Value: 0.2; Range: 0.0-0.4; Units: K/mm3; Status: F Lab Order: -Blood Culture; SPEC'M 09/18/16 13:58 Test: BLOOD CULTURE; Value: No growth after 24 hours . All specimens observed; Status: F Test: BLOOD CULTURE; Value: for 5 days. Results final at that time.; Status: F Test: BLOOD CULTURE; Value: No Growth after 48 hours. All Specimens observed; Status: F Test: BLOOD CULTURE; Value: for 7 days. Results final at that time.; Status: F Lab Order: MED Profile; SPEC'M 09/18/16 13:58 Test: GLUCOSE, FASTING; Value: 330; Range: 70-105; Abnormal: Above high normal; Units: MG/DL; Status: F Test: BLOOD UREA NITROGEN; Value: 11; Range: 7-18; Units: MG/DL; Status: F Test: CREATININE FOR GFR; Value: 0.82; Range: 0.55-1.02; Units: MG/DL; Status: F Test: GLOMERULAR FILTRATION RATE; Value: > 60.0; Range: >51; Status: F Test: SODIUM LEVEL; Value: 133; Range: 136-145; Abnormal: Below low normal; Units: MEQ/L; Status: F Test: POTASSIUM SERUM; Value: 3.5; Range: 3.5-5.1; Units: MEQ/L; Status: F Test: CHLORIDE LEVEL; Value: 95; Range: 98-107; Abnormal: Below low normal; Units: MEQ/L; Status: F Test: CARBON DIOXIDE LEVEL; Value: 31; Range: 21-32; Units: MEQ/L; Status: F Test: ANION GAP; Value: 7; Range: 8-16; Abnormal: Below low normal; Units: MEQ/L; Status: F Test: CALCIUM LEVEL; Value: 8.6; Range: 8.5-10.1; Units: MG/DL; Status: F Test Note: ; Units are mL/min/1.73 m2 Chronic Kidney Disease Staging per NKF: Stage I & II GFR >=60 Normal to Mildly Decreased Stage III GFR 30-59 Moderately Decreased Stage IV GFR 15-29 Severely Decreased Stage V GFR <15 Very Little GFR Left ESRD GFR <15 on TRAINING CONSULTANT Lab Order: Lactic Acid (Ceron tube on ice); SPEC'M 09/18/16 13:58 Test: LACTIC ACID LEVEL, LACTATE; Value: 0.8; Range: 0.4-2.0; Units: MMOL/L; Status: F Lab Order: BLOOD CULTURES; SPEC'M 09/18/16 14:33 Test: BLOOD CULTURE; Value: No growth after 24 hours . All specimens observed; Status: F Test: BLOOD CULTURE; Value: for 5 days. Results final at that time.; Status: F Test: BLOOD CULTURE; Value: No Growth after 48 hours. All Specimens observed; Status: F Test: BLOOD CULTURE; Value: for 7 days. Results final at that time.; Status: F Radiology Order: CT Neck With Contrast Test: CT Neck With Contrast REASON FOR EXAMINATION: ? palate abscess/sinus infection; CT NECK WITH CONTRAST:; ; HISTORY: A sinus infection.; ; CONTRAST: Isovue 370, 75 mL.; ; The naso-, radha-, and hypopharynx, larynx and subglottic trachea are normal in; appearance. The salivary and thyroid glands are normal. Small lymph nodes less; than 1 cm in size are present in the internal jugular chains, posterior; triangles, submandibular and submental areas. There is no neck mass or; adenopathy. Minimal mucosal thickening is present in the right maxillary sinus.; The remaining sinuses are clear.; ; IMPRESSION:; ; 1. There is no neck mass or adenopathy.; ; 2. Minimal right maxillary sinus mucosal thickening.; ; ; Signed by; Te Gutiérrez MD 09/18/2016 03:55 P; Outcome: 16:06 Discharge ordered by Provider. ar2 16:41 Discharge Assessment: Patient awake, alert and oriented x 3. No cognitive and/or jf3 functional deficits noted. Patient verbalized understanding of disposition instructions. 16:42 Discharge Assessment: patient administered narcotics - yes. Pt provided with safe jf3 discharge. The following High Risk Discharge criteria are identified: None. Discharged to home ambulatory, with family. Condition: stable. Discharge instructions given to patient, Instructed on discharge instructions, follow up and referral plans. medication usage, Demonstrated understanding of instructions, medications, Pt was receptive of discharge instructions/ teaching. CT Study completed. Property :Personal belongings accompany Pt. 16:43 Patient left the ED. jf3 Signatures: Dispatcher [employer] EDMS Franco Soto,Kristi Langford RN RN KRISTEN [facility] Franco, Afshan, Reg Reg gb Ruchi Lucas, Reg Reg lg Amber Coombs, EDGE BLACKER EDGE BLACKER jb5 Warner Gonzalez PA-Calvin PA-C ar2 Obi Jordan, EDGE BLACKER EDGE BLACKER dd6 Lizbeth Simons RN RN kc3 Fabrizio Landaverde,KRISTEN RN eryn3 Nunu Mayes2 Chart Complete MTDD
== END 2016-09-18 16:43 | disposition home or self-care (01) ==
LOC: M ED 12:42
DX: K05.00 Acute gingivitis, plaque induced (principal); J01.00 Acute maxillary sinusitis, unspecified; F17.210 Nicotine dependence, cigarettes, uncomplicated; E11.9 Type 2 diabetes mellitus without complications; I10 Essential (primary) hypertension; K21.9 Gastro-esophageal reflux disease without esophagitis; M51.9 Unspecified thoracic, thoracolumbar and lumbosacral intervertebral disc disorder; H26.9 Unspecified cataract; H35.30 Unspecified macular degeneration; G90.522 Complex regional pain syndrome I of left lower limb; M25.561 Pain in right knee; M25.562 Pain in left knee; Z79.899 Other long term (current) drug therapy; Z79.891 Long term (current) use of opiate analgesic; Z79.4 Long term (current) use of insulin; Z88.1 Allergy status to other antibiotic agents; Z88.6 Allergy status to analgesic agent; Z88.8 Allergy status to other drugs, medicaments and biological substances
CPT/HCPCS: 70491; 80048; 83605; 85025; 87040; 96365; 96375; 99284; Q9967

== ENCOUNTER 2016-11-09 02:45 | Emergency (ER) | payer OTHER ==
[~2016-11-09] VITALS: Ht 167.6 cm; Wt 122.9 kg
[2016-11-09 02:56] VITALS: BP 139/79
[2016-11-09] MEDS ORDERED: NOVOINJ2 SC (03:39)
== END 2016-11-09 04:47 | disposition left against medical advice (07) ==
LOC: M ED 04:23
DX: E11.65 Type 2 diabetes mellitus with hyperglycemia (principal); M19.90 Unspecified osteoarthritis, unspecified site; Z79.899 Other long term (current) drug therapy; Z79.891 Long term (current) use of opiate analgesic; Z79.4 Long term (current) use of insulin; Z88.0 Allergy status to penicillin; Z88.5 Allergy status to narcotic agent; Z88.6 Allergy status to analgesic agent; Z88.8 Allergy status to other drugs, medicaments and biological substances; F17.210 Nicotine dependence, cigarettes, uncomplicated

== ENCOUNTER → 2016-12-11 | Outpatient (REF) | payer OTHER ==
[~2016-12-11] MED LIST changes: +NOVOINJ2 SC
== END ==
LOC: M LAB REF 16:56
PROVIDERS: ATTEND Podiatrist
DX: E11.621 Type 2 diabetes mellitus with foot ulcer (principal); L97.522 Non-pressure chronic ulcer of other part of left foot with fat layer exposed

== ENCOUNTER → 2016-12-15 | Outpatient (REF) | payer OTHER ==
[2016-12-15 11:34] LABS: BASO % 0.6 % (0.0-1.0); EOS # 0.3 K/mm3 (0.0-0.50); EOS % 3.5 % (0.0-3.0); LARGE UNSTAINED CELL # 0.1 K/mm3 (0.0-0.4); LARGE UNSTAINED CELL % 1.6 % (0.0-4.0); LYMPH # 2.9 K/mm3 (1.5-4.5); LYMPH % 31.6 % (24.0-44.0); MEAN CORPUSCULAR HEMOGLOBIN 29.9 pg (27.0-33.0); MEAN CORPUSCULAR HGB CONC 33.5 g/dl (32.0-36.5); MEAN CORPUSCULAR VOLUME 89.2 fl (80.0-96.0); MONO # 0.4 K/mm3 (0.0-0.8); MONO % 4.5 % (0.0-5.0); NEUTROPHILS # 5.1 K/mm3 (1.8-7.7); NEUTROPHILS % 58.2 % (36.0-66.0); PLATELET COUNT, AUTOMATED 179 k/mm3 (150-450); RED CELL DISTRIBUTION WIDTH 12.8 % (11.5-14.5); WHITE BLOOD COUNT 8.8 K/mm3 (4.0-10.0)
[2016-12-15 11:45] LABS: ANION GAP 10 MEQ/L (8-16); BLOOD UREA NITROGEN 11 MG/DL (7-18); CALCIUM LEVEL 9.5 MG/DL (8.5-10.1); CARBON DIOXIDE LEVEL 28 MEQ/L (21-32); CHLORIDE LEVEL 97 MEQ/L (98-107); CREATININE FOR GFR 0.79 MG/DL (0.55-1.02); GLOMERULAR FILTRATION RATE > 60.0 (>51); GLUCOSE, FASTING 373 MG/DL (70-105); SODIUM LEVEL 135 MEQ/L (136-145)
[2016-12-15 12:33] LABS: ERYTHROCYTE SEDIMENTATION RATE 5 mm/hr (0-30)
== END ==
LOC: M SFHCPLAZ 09:20
PROVIDERS: ATTEND Internal Medicine Infectious Disease
DX: M86.9 Osteomyelitis, unspecified (principal)

== ENCOUNTER → 2016-12-15 | Outpatient (CLI) | payer OTHER ==
[~2016-12-15] MED LIST changes: +CINN500C9 PO; +MAGN500T6 PO
--- NOTE | 2016-12-15 17:01 | REP ---
Procedure: PICC line insertion with Nella-Marcos The procedure was performed under the direct supervision of Dr. Ceron. The risks and benefits of the procedure were explained to the patient and informed consent was obtained. The right basilic vein was localized using ultrasound guidance. The skin was prepped and draped in a sterile fashion. 2% lidocaine was used as a local anesthetic. Using ultrasound guidance the basilic vein was cannulated and a 0.018 guidewire was inserted and advanced to the SVC using fluoroscopic guidance. The needle was removed and a 4.5 [place]er dilator and peel-away sheath was inserted over the guide wire. A 4.5 [place] single lumen catheter was cut to length of 45 cm. The dilator was removed and the catheter was inserted over the guide wire with the tip ending in the SVC. The peel-away sheath was removed and the catheter was flushed with heparinized saline as per Hospital protocol. The catheter was affixed to the skin and a sterile dressing was applied. The the patient tolerated the procedure well and there were no immediate complications. 0.2 minutes of fluoro time was utilized for this procedure. Reviewed by PALLAVI Johnson 12/15/2016 04:46 PSigned by Len Ceron MD 12/15/2016 04:52 P
== END ==
LOC: M RADPRO 11:06
PROVIDERS: ATTEND Internal Medicine Infectious Disease
DX: R78.81 Bacteremia (principal); M86.9 Osteomyelitis, unspecified; F17.210 Nicotine dependence, cigarettes, uncomplicated; Z79.899 Other long term (current) drug therapy; Z88.0 Allergy status to penicillin; Z88.8 Allergy status to other drugs, medicaments and biological substances
CPT/HCPCS: 36415; 36569; 80048; 80202; 85025; 85652; 86140; G0463

== ENCOUNTER 2016-12-16 09:04 | Outpatient (CLI) | payer OTHER ==
[~2016-12-16] VITALS: Ht 167.6 cm; Wt 119.1 kg
[~2016-12-16 09:04] MED LIST changes: -CINN500C9 PO; -MAGN500T6 PO
[2016-12-16] MEDS ORDERED: SODIUM CHLORIDE 0.9% INJ 10 ML SYR IV PRN (09:15)
[2016-12-16] MEDS ORDERED: VANCOMYCIN HCL 1,000 MG, VIAL MATE ADAPTER 1 EACH in D5W 250 ML IV ONE (10:00)
[2016-12-16] MEDS ORDERED: SODIUM CHLORIDE 0.9% INJ 10 ML SYR IV SCH (18:00)
== END 2016-12-16 11:10 | disposition home or self-care (01) ==
LOC: M INFU 09:04
PROVIDERS: ATTEND Internal Medicine Infectious Disease
DX: M86.8X7 Other osteomyelitis, ankle and foot (principal); E11.9 Type 2 diabetes mellitus without complications; Z88.8 Allergy status to other drugs, medicaments and biological substances; Z88.1 Allergy status to other antibiotic agents; Z79.899 Other long term (current) drug therapy; Z79.4 Long term (current) use of insulin; Z72.0 Tobacco use
CPT/HCPCS: 96365; J3370

== ENCOUNTER → 2016-12-21 | Outpatient (REF) | payer OTHER ==
[~2016-12-21] MED LIST changes: +CINN500C9 PO; +MAGN500T6 PO
[2016-12-21 19:03] LABS: BASO % 0.7 % (0.0-1.0); EOS # 0.3 K/mm3 (0.0-0.50); LARGE UNSTAINED CELL # 0.2 K/mm3 (0.0-0.4); LARGE UNSTAINED CELL % 2.1 % (0.0-4.0); LYMPH # 1.8 K/mm3 (1.5-4.5); LYMPH % 22.4 % (24.0-44.0); MEAN CORPUSCULAR HGB CONC 33.2 g/dl (32.0-36.5); MEAN CORPUSCULAR VOLUME 90.5 fl (80.0-96.0); MONO # 0.3 K/mm3 (0.0-0.8); MONO % 4.4 % (0.0-5.0); NEUTROPHILS # 4.8 K/mm3 (1.8-7.7); NEUTROPHILS % 66.4 % (36.0-66.0); PLATELET COUNT, AUTOMATED 151 k/mm3 (150-450); RED CELL DISTRIBUTION WIDTH 12.8 % (11.5-14.5); WHITE BLOOD COUNT 7.3 K/mm3 (4.0-10.0)
[2016-12-21 20:26] LABS: ERYTHROCYTE SEDIMENTATION RATE 6 mm/hr (0-30)
[2016-12-21 20:29] LABS: ANION GAP 8 MEQ/L (8-16); BLOOD UREA NITROGEN 11 MG/DL (7-18); CALCIUM LEVEL 8.4 MG/DL (8.5-10.1); CARBON DIOXIDE LEVEL 30 MEQ/L (21-32); CHLORIDE LEVEL 95 MEQ/L (98-107); CREATININE FOR GFR 0.73 MG/DL (0.55-1.02); GLOMERULAR FILTRATION RATE > 60.0 (>51); POTASSIUM SERUM 3.8 MEQ/L (3.5-5.1); SODIUM LEVEL 133 MEQ/L (136-145); VANCOMYCIN RANDOM 16.2 UG/ML
[2016-12-21 20:55] LABS: GLUCOSE, FASTING 430 MG/DL (70-105)
--- NOTE | 2016-12-21 21:13 | IPNPDOC ---
Text Note Date of Service The patient was seen on 12/21/16. NOTE called patient, informed of high glucose. Patient stated that she is following an endocrinology at [facility] and Dr Mcmillan, but is allergic to all insulin. 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 Patient aware she would come to the nearest ER if developed any symptoms, or if glucose any higher than 400. Current FS as per patient in the 200s. VS,Fishbone, I+O VS, Fishbone, I+O Laboratory Tests 12/21/16 10:40 Calcium Level 8.4 L, Red Blood Count 4.69, Mean Corpuscular Volume 90.5, Mean Corpuscular Hemoglobin 30.0, Mean Corpuscular Hemoglobin Concent 33.2, Red Cell Distribution Width 12.8, Neutrophils (%) (Auto) 66.4 H, Lymphocytes (%) (Auto) 22.4 L, Monocytes (%) (Auto) 4.4, Eosinophils (%) (Auto) 4.0 H, Basophils (%) ( Auto) 0.7, Neutrophils # (Auto) 4.8, Lymphocytes # (Auto) 1.8, Monocytes # (Auto ) 0.3, Eosinophils # (Auto) 0.3, Basophils # (Auto) 0.0 MIMI BAZAN MD Dec 21, 2016 21:13
== END ==
LOC: M LAB REF 16:48
PROVIDERS: ATTEND Internal Medicine Infectious Disease
DX: M86.9 Osteomyelitis, unspecified (principal)

== ENCOUNTER 2016-12-22 10:54 | Emergency (ER) | payer OTHER ==
[~2016-12-22] VITALS: Ht 167.6 cm; Wt 118.8 kg
[~2016-12-22 10:54] MED LIST changes: -CINN500C9 PO; -MAGN500T6 PO
[2016-12-22] MEDS ORDERED: MAGN500T6 PO (11:19)
[2016-12-22 11:55] LABS: MEAN CORPUSCULAR HEMOGLOBIN 30.1 pg (27.0-33.0); MEAN CORPUSCULAR HGB CONC 33.2 g/dl (32.0-36.5); MEAN CORPUSCULAR VOLUME 90.5 fl (80.0-96.0); RED CELL DISTRIBUTION WIDTH 12.7 % (11.5-14.5); WHITE BLOOD COUNT 8.7 K/mm3 (4.0-10.0)
[2016-12-22 12:00] LABS: ANION GAP 7 MEQ/L (8-16); BLOOD UREA NITROGEN 12 MG/DL (7-18); CALCIUM LEVEL 8.4 MG/DL (8.5-10.1); CARBON DIOXIDE LEVEL 29 MEQ/L (21-32); CHLORIDE LEVEL 98 MEQ/L (98-107); GLOMERULAR FILTRATION RATE > 60.0 (>51); POTASSIUM SERUM 4.1 MEQ/L (3.5-5.1); SODIUM LEVEL 134 MEQ/L (136-145)
[2016-12-22 12:05] LABS: GLUCOSE, FASTING 468 MG/DL (70-105)
[2016-12-22] MEDS ORDERED: CINN500C9 PO (12:12)
[2016-12-22] MEDS ORDERED: HumuLIN R (REGULAR) INSULIN (NovoLIN R) **100U/ML** PER UNIT IV ONE (12:15)
[2016-12-22] MEDS ORDERED: NS 1,000 ML IV ONE (12:15)
[2016-12-22 12:30] LABS: MAGNESIUM LEVEL 1.9 MG/DL (1.8-2.4)
[2016-12-22 13:41] VITALS: BP 162/90
--- NOTE | 2016-12-22 20:19 | ECGEPIP ---
Stationary ECG Study [facility] - ED Test Date: 2016-12-22 Pat Name: ARTHUR CAPUTO Department: Room: - Gender: F Category Director: JIsai : 1965 Requested By: Felicity Trammell Order Number: [id number] Reading MD: Felicity Trammell Measurements Intervals [place] Rate: 66 P: 13 KS: 200 QRS: 5 QRSD: 80 T: 49 QT: 401 QTc: 423 Interpretive Statements SINUS RHYTHM SEPTAL MYOCARDIAL INFARCTION, OF INDETERMINATE AGE NO PRIOR FOR COMPARISON Electronically Signed On 12-22-2016 20:18:53 EDT by Felicity Trammell
== END 2016-12-22 13:42 | disposition home or self-care (01) ==
LOC: EDBD 10:54 → M ED 13:20
DX: E11.65 Type 2 diabetes mellitus with hyperglycemia (principal); I10 Essential (primary) hypertension; M54.5 Low back pain; Z79.899 Other long term (current) drug therapy; Z79.891 Long term (current) use of opiate analgesic; Z88.0 Allergy status to penicillin; Z88.5 Allergy status to narcotic agent; Z88.8 Allergy status to other drugs, medicaments and biological substances

== ENCOUNTER → 2016-12-28 | Outpatient (REF) | payer OTHER ==
[~2016-12-28] MED LIST changes: +CINN500C9 PO; +MAGN500T6 PO
[2016-12-28 12:12] LABS: BASO # 0.1 K/mm3 (0.0-0.2); BASO % 0.8 % (0.0-1.0); EOS # 0.4 K/mm3 (0.0-0.50); EOS % 5.2 % (0.0-3.0); LARGE UNSTAINED CELL # 0.2 K/mm3 (0.0-0.4); LARGE UNSTAINED CELL % 2.5 % (0.0-4.0); LYMPH # 1.9 K/mm3 (1.5-4.5); LYMPH % 27.7 % (24.0-44.0); MEAN CORPUSCULAR HEMOGLOBIN 31.1 pg (27.0-33.0); MEAN CORPUSCULAR HGB CONC 34.5 g/dl (32.0-36.5); MONO # 0.4 K/mm3 (0.0-0.8); MONO % 5.5 % (0.0-5.0); NEUTROPHILS # 4.1 K/mm3 (1.8-7.7); NEUTROPHILS % 58.3 % (36.0-66.0); PLATELET COUNT, AUTOMATED 168 k/mm3 (150-450); RED CELL DISTRIBUTION WIDTH 12.7 % (11.5-14.5)
[2016-12-28 12:39] LABS: ANION GAP 8 MEQ/L (8-16); BLOOD UREA NITROGEN 10 MG/DL (7-18); CALCIUM LEVEL 9.2 MG/DL (8.5-10.1); CARBON DIOXIDE LEVEL 32 MEQ/L (21-32); CHLORIDE LEVEL 93 MEQ/L (98-107); CREATININE FOR GFR 0.74 MG/DL (0.55-1.02); GLOMERULAR FILTRATION RATE > 60.0 (>51); GLUCOSE, FASTING 370 MG/DL (70-105); POTASSIUM SERUM 3.9 MEQ/L (3.5-5.1); SODIUM LEVEL 133 MEQ/L (136-145)
[2016-12-28 13:25] LABS: ERYTHROCYTE SEDIMENTATION RATE 4 mm/hr (0-30)
== END ==
LOC: M LAB REF 11:27
PROVIDERS: ATTEND Internal Medicine Infectious Disease
DX: M86.9 Osteomyelitis, unspecified (principal)

== ENCOUNTER → 2017-01-04 | Outpatient (REF) | payer OTHER ==
[2017-01-05 11:00] LABS: ANION GAP 8 MEQ/L (8-16); BLOOD UREA NITROGEN 13 MG/DL (7-18); CALCIUM LEVEL 9.3 MG/DL (8.5-10.1); CARBON DIOXIDE LEVEL 32 MEQ/L (21-32); CHLORIDE LEVEL 96 MEQ/L (98-107); CREATININE FOR GFR 0.86 MG/DL (0.55-1.02); GLOMERULAR FILTRATION RATE > 60.0 (>51); GLUCOSE, FASTING 342 MG/DL (70-105); POTASSIUM SERUM 4.2 MEQ/L (3.5-5.1); SODIUM LEVEL 136 MEQ/L (136-145)
== END ==
LOC: M LAB REF 12:21
PROVIDERS: ATTEND Family Medicine
DX: M86.9 Osteomyelitis, unspecified (principal)

== ENCOUNTER → 2017-01-11 | Outpatient (REF) | payer OTHER ==
[2017-01-11 11:20] LABS: BASO # 0.1 K/mm3 (0.0-0.2); BASO % 0.7 % (0.0-1.0); EOS # 0.4 K/mm3 (0.0-0.50); EOS % 5.1 % (0.0-3.0); LARGE UNSTAINED CELL # 0.1 K/mm3 (0.0-0.4); LARGE UNSTAINED CELL % 1.9 % (0.0-4.0); LYMPH # 1.9 K/mm3 (1.5-4.5); LYMPH % 22.3 % (24.0-44.0); MEAN CORPUSCULAR HEMOGLOBIN 30.3 pg (27.0-33.0); MEAN CORPUSCULAR HGB CONC 33.8 g/dl (32.0-36.5); MEAN CORPUSCULAR VOLUME 89.6 fl (80.0-96.0); MONO # 0.4 K/mm3 (0.0-0.8); PLATELET COUNT, AUTOMATED 161 k/mm3 (150-450); RED CELL DISTRIBUTION WIDTH 12.9 % (11.5-14.5); WHITE BLOOD COUNT 7.7 K/mm3 (4.0-10.0)
[2017-01-11 11:34] LABS: ANION GAP 6 MEQ/L (8-16); BLOOD UREA NITROGEN 12 MG/DL (7-18); CALCIUM LEVEL 8.9 MG/DL (8.5-10.1); CARBON DIOXIDE LEVEL 33 MEQ/L (21-32); CHLORIDE LEVEL 95 MEQ/L (98-107); CREATININE FOR GFR 0.83 MG/DL (0.55-1.02); GLOMERULAR FILTRATION RATE > 60.0 (>51); GLUCOSE, FASTING 388 MG/DL (70-105); POTASSIUM SERUM 4.7 MEQ/L (3.5-5.1); SODIUM LEVEL 134 MEQ/L (136-145)
[2017-01-11 12:15] LABS: ERYTHROCYTE SEDIMENTATION RATE 6 mm/hr (0-30)
== END ==
LOC: M LAB REF 10:58
PROVIDERS: ATTEND Internal Medicine Infectious Disease
DX: R78.81 Bacteremia (principal); M86.9 Osteomyelitis, unspecified

== ENCOUNTER → 2017-01-18 | Outpatient (REF) | payer OTHER ==
[2017-01-18 13:40] LABS: BASO # 0.1 K/mm3 (0.0-0.2); BASO % 1.1 % (0.0-1.0); EOS # 0.5 K/mm3 (0.0-0.50); LARGE UNSTAINED CELL # 0.2 K/mm3 (0.0-0.4); LARGE UNSTAINED CELL % 2.6 % (0.0-4.0); LYMPH # 1.7 K/mm3 (1.5-4.5); LYMPH % 28.3 % (24.0-44.0); MEAN CORPUSCULAR HEMOGLOBIN 31.1 pg (27.0-33.0); MEAN CORPUSCULAR HGB CONC 33.7 g/dl (32.0-36.5); MEAN CORPUSCULAR VOLUME 92.1 fl (80.0-96.0); MONO # 0.4 K/mm3 (0.0-0.8); MONO % 6.3 % (0.0-5.0); NEUTROPHILS # 3.3 K/mm3 (1.8-7.7); NEUTROPHILS % 53.7 % (36.0-66.0); PLATELET COUNT, AUTOMATED 156 k/mm3 (150-450); RED CELL DISTRIBUTION WIDTH 12.8 % (11.5-14.5); WHITE BLOOD COUNT 6.1 K/mm3 (4.0-10.0)
[2017-01-18 14:06] LABS: ANION GAP 7 MEQ/L (8-16); BLOOD UREA NITROGEN 16 MG/DL (7-18); CALCIUM LEVEL 9.3 MG/DL (8.5-10.1); CARBON DIOXIDE LEVEL 32 MEQ/L (21-32); CHLORIDE LEVEL 93 MEQ/L (98-107); CREATININE FOR GFR 0.78 MG/DL (0.55-1.02); GLOMERULAR FILTRATION RATE > 60.0 (>51); POTASSIUM SERUM 4.5 MEQ/L (3.5-5.1); SODIUM LEVEL 132 MEQ/L (136-145)
[2017-01-18 14:26] LABS: ERYTHROCYTE SEDIMENTATION RATE 5 mm/hr (0-30)
[2017-01-18 15:03] LABS: GLUCOSE, FASTING 401 MG/DL (70-105)
== END ==
LOC: M LAB REF 12:52
PROVIDERS: ATTEND Internal Medicine Infectious Disease
DX: M86.9 Osteomyelitis, unspecified (principal)

== ENCOUNTER → 2017-03-11 | Outpatient (REF) | payer OTHER ==
[~2017-03-11] MED LIST changes: -BACL-67 PO; +BACL1TAB9 PO; +IBUP1TAB7 PO; -IBUP800T23 PO; -NYST100024 TOP; +NYST1POW9 TOP; +PERC7.5T11 PO; -PERC7.5T3 PO
[2017-03-11 20:56] LABS: PHOSPHORUS LEVEL 4.2 MG/DL (2.5-4.9)
== END ==
LOC: M LAB REF 16:42
PROVIDERS: ATTEND Family Medicine
DX: M86.9 Osteomyelitis, unspecified (principal)

== ENCOUNTER 2017-08-05 13:39 | Emergency (ER) | payer OTHER ==
[~2017-08-05] VITALS: Ht 167.6 cm; Wt 133.6 kg
[2017-08-05] MEDS ORDERED: MELA1TAB15 PO (13:58)
[2017-08-05] MEDS ORDERED: SITA50TAB PO (13:58)
[2017-08-05] MEDS ORDERED: PERC10TA26 PO (13:58)
[2017-08-05] MEDS ORDERED: methylPREDNISolone INJ 125 MG/2 ML VIAL (J2930) IV ONE (15:15)
[2017-08-05] MEDS ORDERED: PRED20TA PO (16:10)
[2017-08-05 16:50] VITALS: BP 127/82
== END 2017-08-05 16:52 | disposition home or self-care (01) ==
LOC: M ED 13:39
DX: M51.26 Other intervertebral disc displacement, lumbar region (principal); E11.9 Type 2 diabetes mellitus without complications; I10 Essential (primary) hypertension; M54.2 Cervicalgia; F41.9 Anxiety disorder, unspecified; F33.9 Major depressive disorder, recurrent, unspecified; G90.50 Complex regional pain syndrome I, unspecified; Z86.14 Personal history of Methicillin resistant Staphylococcus aureus infection; Z79.899 Other long term (current) drug therapy; Z79.84 Long term (current) use of oral hypoglycemic drugs; Z88.0 Allergy status to penicillin; Z88.5 Allergy status to narcotic agent; Z88.8 Allergy status to other drugs, medicaments and biological substances
CPT/HCPCS: 96374; 99284; J2930

== ENCOUNTER → 2017-09-27 | Outpatient (REF) | payer OTHER ==
[2017-09-30 14:15] LABS: C-PEPTIDE 3.8 ng/mL (1.1-4.4)
== END ==
LOC: M LAB REF 16:45
DX: E11.65 Type 2 diabetes mellitus with hyperglycemia (principal)
CPT/HCPCS: 84681

== ENCOUNTER → 2017-09-30 | Outpatient (REF) | payer OTHER | LOC: M LAB REF 16:31 | DX: R21 Rash and other nonspecific skin eruption (principal) | CPT/HCPCS: 87186 ==

== ENCOUNTER → 2018-01-18 | Outpatient (REF) | payer OTHER | LOC: M LAB REF 11:51 | DX: R21 Rash and other nonspecific skin eruption (principal) | CPT/HCPCS: 87070; 87186 ==

== ENCOUNTER 2018-02-17 18:06 | Emergency (ER) | payer OTHER ==
[2018-02-17 19:34] LABS: BASO # 0.1 10^3/uL (0.0-0.2); BASO % 0.5 % (0.0-1.0); EOS # 0.2 10^3/uL (0.0-0.50); EOS % 1.8 % (0.0-3.0); HEMATOCRIT 47.5 % (36.0-47.0); HEMOGLOBIN 16.1 g/dl (12.0-15.5); IMMATURE GRANULOCYTE % 0.3 % (0-3.0); LYMPH # 3.2 10^3/uL (1.5-4.5); LYMPH % 32.4 % (24.0-44.0); MEAN CORPUSCULAR HEMOGLOBIN 29.7 pg (27.0-33.0); MEAN CORPUSCULAR HGB CONC 33.9 g/dl (32.0-36.5); MEAN CORPUSCULAR VOLUME 87.6 fl (80.0-96.0); MONO # 0.6 10^3/uL (0.0-0.8); MONO % 6.3 % (0.0-5.0); NEUTROPHILS # 5.8 10^3/uL (1.8-7.7); NEUTROPHILS % 58.7 % (36.0-66.0); PLATELET COUNT, AUTOMATED 203 10^3/uL (150-450); RED BLOOD COUNT 5.42 10^6/uL (4.00-5.40); RED CELL DISTRIBUTION WIDTH 12.9 % (11.5-14.5); WHITE BLOOD COUNT 9.8 10^3/uL (4.0-10.0)
[2018-02-17 19:45] LABS: INR 0.95; PROTHROMBIN TIME 12.8 SECONDS (12.4-14.5)
[2018-02-17 20:04] LABS: APPEARANCE, URINE HAZY (CLEAR); BACTERIA, URINE AUTO 1+ (NEGATIVE); BILIRUBIN, URINE AUTO NEGATIVE (NEGATIVE); BLOOD, URINE BLOOD NEGATIVE (NEGATIVE); COLOR, URINE STRAW (YELLOW); GLUCOSE, URINE (UA) AUTO 3+ mg/dL (NEGATIVE); KETONE, URINE AUTO NEGATIVE (NEGATIVE); LEUKOCYTE ESTERASE, URINE AUTO TRACE (NEGATIVE); NITRITE, URINE AUTO NEGATIVE (NEGATIVE); PROTEIN, URINE AUTO NEGATIVE (NEGATIVE); RBC, URINE AUTO 3 /HPF (0-3); SPECIFIC GRAVITY URINE AUTO 1.013 (1.002-1.035); SQUAMOUS EPITHELIAL CELL UR AU 4 /HPF (0-6); UROBILINOGEN, URINE AUTO 0.2 mg/dL (0.0-2.0); WBC, URINE AUTO 21 /HPF (0-3)
[2018-02-17 20:05] LABS: ALBUMIN 3.8 GM/DL (3.2-5.2); ALBUMIN/GLOBULIN RATIO 1.09 (1.00-1.93); ALKALINE PHOSPHATASE 114 U/L (45-117); ALT/SGPT 19 U/L (12-78); ANION GAP 12 MEQ/L (8-16); AST/SGOT 14 U/L (7-37); BILIRUBIN,DIRECT < 0.1 MG/DL (0.0-0.2); BILIRUBIN,TOTAL 0.3 MG/DL (0.2-1.0); BLOOD UREA NITROGEN 6 MG/DL (7-18); CALCIUM LEVEL 9.1 MG/DL (8.5-10.1); CARBON DIOXIDE LEVEL 28 MEQ/L (21-32); CHLORIDE LEVEL 98 MEQ/L (98-107); CK-MB VALUE MASS 2.4 NG/ML (<3.6); CPK CREATINE PHOSPHOKINASE 51 U/L (26-192); CREATININE FOR GFR 0.94 MG/DL (0.55-1.30); GLOMERULAR FILTRATION RATE > 60.0 (>51); LIPASE 61 U/L (73-393); SODIUM LEVEL 138 MEQ/L (136-145); TOTAL PROTEIN 7.3 GM/DL (6.4-8.2); TROPONIN I < 0.02 NG/ML (< 0.10)
[2018-02-17] MEDS ORDERED: GASTROGRAFIN SOLUTION 30ML (Q9963) As Ordered (20:08)
[2018-02-17 20:15] LABS: GLUCOSE, FASTING 468 MG/DL (70-100)
[2018-02-17] MEDS: GASTROGRAFIN SOLUTION 30ML (Q9963) PO ×2 (20:25→20:55)
[2018-02-17] MEDS ORDERED: ISOVUE-370 76% 100ML VIAL (Q9967) As Ordered (20:32)
[2018-02-17] MEDS: HumuLIN R (REGULAR) INSULIN (NovoLIN R) **100U/ML** PER UNIT IV (20:40)
[2018-02-17 21:10] LABS: BEDSIDE GLUCOSE 331 MG/DL (70-105)
[2018-02-17] MEDS: diphenhydrAMINE INJ 50MG/ML VIAL (J1200) IV (22:27)
[2018-02-17] MEDS: PHENAZOPYRIDINE 100 MG TAB PO (22:58)
[2018-02-17] MEDS: CIPROFLOXACIN 500 MG TAB PO (22:59)
== END 2018-02-17 23:06 | disposition home or self-care (01) ==
LOC: M ED 18:06
DX: R10.9 Unspecified abdominal pain (principal); E11.65 Type 2 diabetes mellitus with hyperglycemia; N39.0 Urinary tract infection, site not specified; R00.0 Tachycardia, unspecified; Z79.4 Long term (current) use of insulin; Z79.899 Other long term (current) drug therapy; Z88.0 Allergy status to penicillin; Z88.6 Allergy status to analgesic agent; Z88.1 Allergy status to other antibiotic agents; Z88.8 Allergy status to other drugs, medicaments and biological substances
CPT/HCPCS: J1200

== ENCOUNTER 2018-02-18 19:21 | Emergency (ER) | payer OTHER ==
[2018-02-18 22:44] LABS: BEDSIDE GLUCOSE 293 MG/DL (70-105)
[2018-02-18 23:36] LABS: KETONE, URINE AUTO RFX NEGATIVE (NEGATIVE); LEUKOCYTE ESTERASE UR AUTO RFX 2+ (NEGATIVE); NITRITE, URINE AUTO RFX NEGATIVE (NEGATIVE); RBC, URINE AUTO RFX 3 /HPF (0-3); SPECIFIC GRAVITY UR AUTO RFX 1.012 (1.002-1.035); SQUAM EPITHELIAL CELL UR AURFX 16 /HPF (0-6); WBC, URINE AUTO RFX 25 /HPF (0-3)
[2018-02-19] MEDS: PANTOPRAZOLE 40MG INJ (PROTONIX) (C9113) IV (00:29)
[2018-02-19] MEDS: GI COCKTAIL 50ML BTL(HYOSCYAMINE/MAALOX/LIDOCAINE VISCOUS)(1:3:1) PO (00:30)
[2018-02-19] MEDS: MORPHINE 4 MG/ML 1ML VIAL/SYRINGE (J2270) IV (00:30)
[2018-02-19] MEDS: NS 1,000 ML IV (00:30)
[2018-02-19] MEDS: PERCOCET 5MG/325MG TAB PO (00:31)
[2018-02-19] MEDS: diazePAM 2 MG TAB PO (00:31)
[2018-02-19] MEDS: diazePAM 5 MG TAB PO (00:31)
[2018-02-19 00:49] LABS: BASO # 0.1 10^3/uL (0.0-0.2); BASO % 0.5 % (0.0-1.0); EOS # 0.2 10^3/uL (0.0-0.50); EOS % 1.7 % (0.0-3.0); HEMATOCRIT 49.7 % (36.0-47.0); HEMOGLOBIN 16.6 g/dl (12.0-15.5); IMMATURE GRANULOCYTE % 0.3 % (0-3.0); LYMPH # 3.1 10^3/uL (1.5-4.5); LYMPH % 25.6 % (24.0-44.0); MEAN CORPUSCULAR HEMOGLOBIN 29.4 pg (27.0-33.0); MEAN CORPUSCULAR HGB CONC 33.4 g/dl (32.0-36.5); MEAN CORPUSCULAR VOLUME 88.1 fl (80.0-96.0); MONO # 0.7 10^3/uL (0.0-0.8); MONO % 5.5 % (0.0-5.0); NEUTROPHILS # 8.1 10^3/uL (1.8-7.7); NEUTROPHILS % 66.4 % (36.0-66.0); PLATELET COUNT, AUTOMATED 206 10^3/uL (150-450); RED BLOOD COUNT 5.64 10^6/uL (4.00-5.40); RED CELL DISTRIBUTION WIDTH 12.8 % (11.5-14.5); WHITE BLOOD COUNT 12.2 10^3/uL (4.0-10.0)
[2018-02-19 01:03] LABS: ALBUMIN/GLOBULIN RATIO 1.03 (1.00-1.93); ALKALINE PHOSPHATASE 116 U/L (45-117); ALT/SGPT 21 U/L (12-78); ANION GAP 4 MEQ/L (8-16); AST/SGOT 17 U/L (7-37); BILIRUBIN,TOTAL 0.6 MG/DL (0.2-1.0); BLOOD UREA NITROGEN 6 MG/DL (7-18); CALCIUM LEVEL 9.4 MG/DL (8.5-10.1); CARBON DIOXIDE LEVEL 34 MEQ/L (21-32); CHLORIDE LEVEL 101 MEQ/L (98-107); CREATININE FOR GFR 0.76 MG/DL (0.55-1.30); GLOMERULAR FILTRATION RATE > 60.0 (>51); GLUCOSE, FASTING 278 MG/DL (70-100); LIPASE 65 U/L (73-393); SODIUM LEVEL 139 MEQ/L (136-145); TOTAL PROTEIN 7.9 GM/DL (6.4-8.2)
[2018-02-19] MEDS ORDERED: diphenhydrAMINE INJ 50MG/ML VIAL (J1200) As Ordered (01:28)
[2018-02-19] MEDS: NITROFURANTOIN (MACROBID) 100 MG CAP PO (01:29)
[2018-02-19] MEDS: SUCRALFATE 1 GM TAB PO (01:35)
[2018-02-19] MEDS: diphenhydrAMINE INJ 50MG/ML VIAL (J1200) IV (01:42)
== END 2018-02-19 02:32 | disposition home or self-care (01) ==
LOC: M ED 02-19 02:32
DX: K52.9 Noninfective gastroenteritis and colitis, unspecified (principal); E11.9 Type 2 diabetes mellitus without complications; I10 Essential (primary) hypertension; K21.9 Gastro-esophageal reflux disease without esophagitis; M51.9 Unspecified thoracic, thoracolumbar and lumbosacral intervertebral disc disorder; F17.210 Nicotine dependence, cigarettes, uncomplicated; Z79.4 Long term (current) use of insulin; Z79.890 Hormone replacement therapy; Z79.899 Other long term (current) drug therapy; Z86.718 Personal history of other venous thrombosis and embolism; Z98.890 Other specified postprocedural states; Z88.0 Allergy status to penicillin; Z88.8 Allergy status to other drugs, medicaments and biological substances; Z88.1 Allergy status to other antibiotic agents
CPT/HCPCS: C9113

== ENCOUNTER → 2018-03-15 | Outpatient (REF) | payer OTHER | LOC: M LAB REF 17:13 | DX: R21 Rash and other nonspecific skin eruption (principal) | CPT/HCPCS: 87186 ==

== ENCOUNTER 2018-03-23 15:54 | Emergency (ER) | payer OTHER ==
[2018-03-23 16:10] LABS: BEDSIDE GLUCOSE 496 MG/DL (70-105)
[2018-03-23 16:29] LABS: VENOUS BASE EXCESS 0.5 (-2.0-2.0); VENOUS HCO3 27.2 MEQ/L (23.0-27.0); VENOUS O2 SATURATION 75.8 % (60.0-80.0); VENOUS PARTIAL PRESSURE CO2 51.1 mmHg (38.0-50.0); VENOUS PH 7.344 UNITS (7.330-7.430); VENOUS STANDARD HCO3 24.3 MEQ/L; VENOUS TOTAL CO2 28.8 MEQ/L (24.0-28.0)
[2018-03-23] MEDS: NS 1,000 ML IV (16:31)
[2018-03-23 16:35] LABS: BASO # 0.1 10^3/uL (0.0-0.2); BASO % 0.6 % (0.0-1.0); EOS # 0.2 10^3/uL (0.0-0.50); EOS % 1.8 % (0.0-3.0); HEMATOCRIT 45.9 % (36.0-47.0); HEMOGLOBIN 15.3 g/dl (12.0-15.5); IMMATURE GRANULOCYTE % 0.3 % (0-3.0); LYMPH % 32.8 % (24.0-44.0); MEAN CORPUSCULAR HEMOGLOBIN 29.7 pg (27.0-33.0); MEAN CORPUSCULAR HGB CONC 33.3 g/dl (32.0-36.5); MONO # 0.6 10^3/uL (0.0-0.8); MONO % 6.8 % (0.0-5.0); NEUTROPHILS # 5.2 10^3/uL (1.8-7.7); NEUTROPHILS % 57.7 % (36.0-66.0); PLATELET COUNT, AUTOMATED 198 10^3/uL (150-450); RED BLOOD COUNT 5.16 10^6/uL (4.00-5.40); RED CELL DISTRIBUTION WIDTH 13.4 % (11.5-14.5)
[2018-03-23 16:52] LABS: ALBUMIN 3.6 GM/DL (3.2-5.2); ALBUMIN/GLOBULIN RATIO 1.06 (1.00-1.93); ALKALINE PHOSPHATASE 115 U/L (45-117); ALT/SGPT 17 U/L (12-78); ANION GAP 9 MEQ/L (8-16); AST/SGOT 13 U/L (7-37); BILIRUBIN,DIRECT < 0.1 MG/DL (0.0-0.2); BILIRUBIN,TOTAL 0.3 MG/DL (0.2-1.0); BLOOD UREA NITROGEN 9 MG/DL (7-18); CALCIUM LEVEL 8.4 MG/DL (8.5-10.1); CARBON DIOXIDE LEVEL 27 MEQ/L (21-32); CHLORIDE LEVEL 96 MEQ/L (98-107); CK-MB VALUE MASS 2.5 NG/ML (<3.6); CPK CREATINE PHOSPHOKINASE 42 U/L (26-192); CREATININE FOR GFR 0.93 MG/DL (0.55-1.30); ETHYL ALCOHOL (ETHANOL) 0.003 % (0.000-0.010); GLOMERULAR FILTRATION RATE > 60.0 (>51); MB/CK RELATIVE INDEX 5.95 (< OR =4); POTASSIUM SERUM 4.1 MEQ/L (3.5-5.1); SODIUM LEVEL 132 MEQ/L (136-145); TROPONIN I < 0.02 NG/ML (< 0.10)
[2018-03-23 16:54] LABS: GLUCOSE, FASTING 483 MG/DL (70-100)
[2018-03-23 16:56] LABS: ESTIMATED AVERAGE GLUCOSE 321 MG/DL (60-110); HEMOGLOBIN A1c 12.8 %
[2018-03-23] MEDS ORDERED: HumuLIN R (REGULAR) INSULIN (NovoLIN R) **100U/ML** PER UNIT SC (17:28)
[2018-03-23 17:40] LABS: KETONE, URINE AUTO RFX NEGATIVE (NEGATIVE); LEUKOCYTE ESTERASE UR AUTO RFX NEGATIVE (NEGATIVE); NITRITE, URINE AUTO RFX NEGATIVE (NEGATIVE); RBC, URINE AUTO RFX 1 /HPF (0-3); SPECIFIC GRAVITY UR AUTO RFX 1.013 (1.002-1.035); SQUAM EPITHELIAL CELL UR AURFX 0 /HPF (0-6); WBC, URINE AUTO RFX 1 /HPF (0-3)
[2018-03-23 18:17] LABS: AMPHETAMINES LEVEL URINE NEGATIVE (NEGATIVE); BARBITURATES URINE NEGATIVE (NEGATIVE); BENZODIAZEPINES URINE POSITIVE (NEGATIVE); CANNABINOIDS URINE NEGATIVE (NEGATIVE); COCAINE METABOLITE URINE NEGATIVE (NEGATIVE); METHADONE URINE NEGATIVE (NEGATIVE); OPIATES URINE POSITIVE (NEGATIVE); PHENCYCLIDINE URINE NEGATIVE (NEGATIVE)
[2018-03-23 18:18] LABS: BEDSIDE GLUCOSE 355 MG/DL (70-105)
[2018-03-23] MEDS: NOVOLIN R SC (18:18)
[2018-03-23 19:13] LABS: BEDSIDE GLUCOSE 314 MG/DL (70-105)
[2018-03-23 20:19] LABS: BEDSIDE GLUCOSE 220 MG/DL (70-105)
== END 2018-03-23 21:07 | disposition home or self-care (01) ==
LOC: M ED 15:54
DX: E11.65 Type 2 diabetes mellitus with hyperglycemia (principal); I51.9 Heart disease, unspecified; Z79.4 Long term (current) use of insulin; Z79.899 Other long term (current) drug therapy; Z88.0 Allergy status to penicillin; Z88.6 Allergy status to analgesic agent; Z88.1 Allergy status to other antibiotic agents; Z88.8 Allergy status to other drugs, medicaments and biological substances
CPT/HCPCS: 93005

== ENCOUNTER 2018-05-06 18:01 | Emergency (ER) | payer OTHER | END 2018-05-06 18:52 | disposition home or self-care (01) | LOC: M ED 18:01 | DX: L02.415 Cutaneous abscess of right lower limb (principal); E11.9 Type 2 diabetes mellitus without complications; K21.9 Gastro-esophageal reflux disease without esophagitis; G90.50 Complex regional pain syndrome I, unspecified; F17.210 Nicotine dependence, cigarettes, uncomplicated; M51.9 Unspecified thoracic, thoracolumbar and lumbosacral intervertebral disc disorder; F41.9 Anxiety disorder, unspecified; Z86.718 Personal history of other venous thrombosis and embolism; Z98.890 Other specified postprocedural states; Z88.0 Allergy status to penicillin; Z88.8 Allergy status to other drugs, medicaments and biological substances; Z79.899 Other long term (current) drug therapy; Z79.890 Hormone replacement therapy; Z79.4 Long term (current) use of insulin | CPT/HCPCS: 99282 ==

== ENCOUNTER 2018-06-09 08:44 | Emergency (ER) | payer OTHER ==
[2018-06-09] MEDS: NS 1,000 ML IV ×2 (09:26→11:00)
[2018-06-09 09:34] LABS: VENOUS BASE EXCESS 3.9 (-2.0-2.0); VENOUS HCO3 31.3 MEQ/L (23.0-27.0); VENOUS O2 SATURATION 78.4 % (60.0-80.0); VENOUS PARTIAL PRESSURE CO2 57.4 mmHg (38.0-50.0); VENOUS PH 7.354 UNITS (7.330-7.430); VENOUS STANDARD HCO3 27.4 MEQ/L
[2018-06-09 09:38] LABS: HEMATOCRIT 46.7 % (36.0-47.0); HEMOGLOBIN 15.6 g/dl (12.0-15.5); MEAN CORPUSCULAR HEMOGLOBIN 29.7 pg (27.0-33.0); MEAN CORPUSCULAR HGB CONC 33.4 g/dl (32.0-36.5); PLATELET COUNT, AUTOMATED 183 10^3/uL (150-450); RED BLOOD COUNT 5.25 10^6/uL (4.00-5.40); RED CELL DISTRIBUTION WIDTH 12.5 % (11.5-14.5); WHITE BLOOD COUNT 9.5 10^3/uL (4.0-10.0)
[2018-06-09 09:42] LABS: ADD MANUAL DIFFER YES; DIFF SLIDE NUMBER 162; POSITIVE MORPH POS FLAG
[2018-06-09 10:06] LABS: ALBUMIN 3.5 GM/DL (3.2-5.2); ALBUMIN/GLOBULIN RATIO 0.97 (1.00-1.93); ALKALINE PHOSPHATASE 98 U/L (45-117); ALT/SGPT 16 U/L (12-78); ANION GAP 9 MEQ/L (8-16); AST/SGOT 15 U/L (7-37); BILIRUBIN,DIRECT 0.1 MG/DL (0.0-0.2); BILIRUBIN,TOTAL 0.5 MG/DL (0.2-1.0); BLOOD UREA NITROGEN 16 MG/DL (7-18); CARBON DIOXIDE LEVEL 30 MEQ/L (21-32); CHLORIDE LEVEL 92 MEQ/L (98-107); CREATININE FOR GFR 1.01 MG/DL (0.55-1.30); GLOMERULAR FILTRATION RATE > 60.0 (>51); GLUCOSE, FASTING 467 MG/DL (70-100); LIPASE 63 U/L (73-393); SODIUM LEVEL 131 MEQ/L (136-145); TOTAL PROTEIN 7.1 GM/DL (6.4-8.2)
[2018-06-09 10:20] LABS: BASOPHILS 1 % (0-4); LYMPHOCYTES 38 % (16-52); MONOCYTES 5 % (0-8); NEUTROPHILS 56 % (35-75); PLATELET ESTIMATE NORMAL (NORMAL)
[2018-06-09] MEDS: HumuLIN R (REGULAR) INSULIN (NovoLIN R) **100U/ML** PER UNIT IV (11:30)
[2018-06-09 11:48] LABS: BEDSIDE GLUCOSE 358 MG/DL (70-105)
[2018-06-09] MEDS: PROMETHAZINE INJ 25 MG/ML VIAL (J2550) IM (11:49)
[2018-06-09 11:51] LABS: OSMOLALITY SERUM 297 MOSM/KG (275-295)
[2018-06-09 12:00] LABS: ACETAMINOPHEN LEVEL < 2.0 UG/ML (10.0-30.0); ETHYL ALCOHOL (ETHANOL) < 0.003 % (0.000-0.010); SALICYLATE LEVEL 2.9 MG/DL (5.0-30.0)
[2018-06-09 13:00] LABS: AMPHETAMINES LEVEL URINE NEGATIVE (NEGATIVE); BARBITURATES URINE NEGATIVE (NEGATIVE); BENZODIAZEPINES URINE POSITIVE (NEGATIVE); CANNABINOIDS URINE NEGATIVE (NEGATIVE); COCAINE METABOLITE URINE NEGATIVE (NEGATIVE); METHADONE URINE NEGATIVE (NEGATIVE); OPIATES URINE POSITIVE (NEGATIVE); PHENCYCLIDINE URINE NEGATIVE (NEGATIVE)
[2018-06-09] MEDS: GI COCKTAIL 50ML BTL(HYOSCYAMINE/MAALOX/LIDOCAINE VISCOUS)(1:3:1) PO (13:16)
[2018-06-09] MEDS ORDERED: ISOVUE-370 76% 100ML VIAL (Q9967) As Ordered (14:38)
[2018-06-09 14:40] LABS: BEDSIDE GLUCOSE 255 MG/DL (70-105)
[2018-06-09 15:49] LABS: BEDSIDE GLUCOSE 188 MG/DL (70-105)
[2018-06-10 15:56] LABS: BEDSIDE GLUCOSE 555 MG/DL (70-105)
== END 2018-06-09 16:20 | disposition home or self-care (01) ==
LOC: M ED 08:44
DX: R10.9 Unspecified abdominal pain (principal); R11.0 Nausea; E11.9 Type 2 diabetes mellitus without complications; F41.9 Anxiety disorder, unspecified; Z88.0 Allergy status to penicillin; Z79.899 Other long term (current) drug therapy; Z79.4 Long term (current) use of insulin; Z79.890 Hormone replacement therapy; Z88.1 Allergy status to other antibiotic agents; Z88.8 Allergy status to other drugs, medicaments and biological substances
CPT/HCPCS: Q9967

== ENCOUNTER 2018-06-16 16:34 | Emergency (ER) | payer OTHER ==
[2018-06-16 17:50] LABS: BASO % 0.3 % (0.0-1.0); EOS # 0.1 10^3/uL (0.0-0.50); EOS % 1.4 % (0.0-3.0); HEMATOCRIT 45.6 % (36.0-47.0); HEMOGLOBIN 15.5 g/dl (12.0-15.5); IMMATURE GRANULOCYTE % 0.3 % (0-3.0); LYMPH # 1.6 10^3/uL (1.5-4.5); LYMPH % 18.6 % (24.0-44.0); MEAN CORPUSCULAR HEMOGLOBIN 29.8 pg (27.0-33.0); MEAN CORPUSCULAR VOLUME 87.5 fl (80.0-96.0); MONO # 0.4 10^3/uL (0.0-0.8); MONO % 4.9 % (0.0-5.0); NEUTROPHILS # 6.5 10^3/uL (1.8-7.7); NEUTROPHILS % 74.5 % (36.0-66.0); PLATELET COUNT, AUTOMATED 165 10^3/uL (150-450); RED BLOOD COUNT 5.21 10^6/uL (4.00-5.40); RED CELL DISTRIBUTION WIDTH 12.5 % (11.5-14.5); WHITE BLOOD COUNT 8.8 10^3/uL (4.0-10.0)
[2018-06-16] MEDS: NS 1,000 ML IV (18:12)
[2018-06-16] MEDS: PROMETHAZINE INJ 25 MG/ML VIAL (J2550) IV (18:12)
[2018-06-16 18:25] LABS: ALBUMIN 3.7 GM/DL (3.2-5.2); ALBUMIN/GLOBULIN RATIO 1.12 (1.00-1.93); ALKALINE PHOSPHATASE 101 U/L (45-117); ALT/SGPT 16 U/L (12-78); AMYLASE 18 U/L (25-115); ANION GAP 10 MEQ/L (8-16); AST/SGOT 13 U/L (7-37); BILIRUBIN,DIRECT < 0.1 MG/DL (0.0-0.2); BILIRUBIN,TOTAL 0.3 MG/DL (0.2-1.0); BLOOD UREA NITROGEN 9 MG/DL (7-18); CALCIUM LEVEL 8.8 MG/DL (8.5-10.1); CARBON DIOXIDE LEVEL 30 MEQ/L (21-32); CHLORIDE LEVEL 97 MEQ/L (98-107); CPK CREATINE PHOSPHOKINASE 47 U/L (26-192); CREATININE FOR GFR 0.74 MG/DL (0.55-1.30); GLOMERULAR FILTRATION RATE > 60.0 (>51); GLUCOSE, FASTING 319 MG/DL (70-100); LIPASE 48 U/L (73-393); MB/CK RELATIVE INDEX 5.32 (< OR =4); POTASSIUM SERUM 4.1 MEQ/L (3.5-5.1); SODIUM LEVEL 137 MEQ/L (136-145); TROPONIN I < 0.02 NG/ML (< 0.10)
[2018-06-16 18:25] LABS: LACTIC ACID SEPSIS PROTOCOL 1.2 MMOL/L (0.4-2.0)
[2018-06-16] MEDS: GI COCKTAIL 50ML BTL(HYOSCYAMINE/MAALOX/LIDOCAINE VISCOUS)(1:3:1) PO (18:55)
[2018-06-16 19:53] LABS: KETONE, URINE AUTO RFX NEGATIVE (NEGATIVE); LEUKOCYTE ESTERASE UR AUTO RFX NEGATIVE (NEGATIVE); MUCUS, URINE RFX SMALL (NEGATIVE); NITRITE, URINE AUTO RFX NEGATIVE (NEGATIVE); RBC, URINE AUTO RFX 1 /HPF (0-3); SPECIFIC GRAVITY UR AUTO RFX 1.015 (1.002-1.035); SQUAM EPITHELIAL CELL UR AURFX 6 /HPF (0-6); WBC, URINE AUTO RFX 4 /HPF (0-3)
[2018-06-16] MEDS: diphenhydrAMINE INJ 50MG/ML VIAL (J1200) IV (19:59)
== END 2018-06-16 20:26 | disposition home or self-care (01) ==
LOC: M ED 16:34
DX: K29.00 Acute gastritis without bleeding (principal); I10 Essential (primary) hypertension; E11.9 Type 2 diabetes mellitus without complications; E07.9 Disorder of thyroid, unspecified; M51.9 Unspecified thoracic, thoracolumbar and lumbosacral intervertebral disc disorder; G90.50 Complex regional pain syndrome I, unspecified; Z86.718 Personal history of other venous thrombosis and embolism; Z88.0 Allergy status to penicillin; Z88.1 Allergy status to other antibiotic agents; Z88.8 Allergy status to other drugs, medicaments and biological substances; F17.210 Nicotine dependence, cigarettes, uncomplicated
CPT/HCPCS: J1200

== ENCOUNTER → 2018-06-22 | Outpatient (REF) | payer OTHER ==
[2018-06-23 08:39] LABS: LDL DIRECT 140 mg/dL (0-99)
== END ==
LOC: M LAB REF 12:20
DX: E78.5 Hyperlipidemia, unspecified (principal)
CPT/HCPCS: 83721

== ENCOUNTER 2018-07-01 11:34 | Day surgery (SDC) | payer OTHER ==
[2018-07-01] MEDS ORDERED: PROPOFOL 200 MG/20 ML VIAL As Ordered (14:07)
[2018-07-01] MEDS ORDERED: PHENYLephrine HCL 500 MCG/5 ML (100MCG/ML) SYRINGE (J2370) As Ordered (14:23)
[2018-07-01] MEDS ORDERED: LIDOCAINE 2% INJ 100 MG/5 ML SDV (FOR ANES.) As Ordered (14:24)
[2018-07-01] MEDS: NS 1,000 ML IV (14:57)
== END 2018-07-01 15:00 | disposition home or self-care (01) ==
LOC: M OPP 11:34
DX: K31.4 Gastric diverticulum (principal); K31.84 Gastroparesis; K31.89 Other diseases of stomach and duodenum; R12 Heartburn; I10 Essential (primary) hypertension; E03.9 Hypothyroidism, unspecified; E10.8 Type 1 diabetes mellitus with unspecified complications; K52.9 Noninfective gastroenteritis and colitis, unspecified; K21.9 Gastro-esophageal reflux disease without esophagitis; M17.0 Bilateral primary osteoarthritis of knee; M51.36 Other intervertebral disc degeneration, lumbar region; F41.9 Anxiety disorder, unspecified; F32.9 Major depressive disorder, single episode, unspecified; F17.210 Nicotine dependence, cigarettes, uncomplicated; G43.909 Migraine, unspecified, not intractable, without status migrainosus; G47.30 Sleep apnea, unspecified; Z79.4 Long term (current) use of insulin; Z79.899 Other long term (current) drug therapy; Z88.0 Allergy status to penicillin; Z88.6 Allergy status to analgesic agent; Z88.8 Allergy status to other drugs, medicaments and biological substances; Z86.72 Personal history of thrombophlebitis; Z90.49 Acquired absence of other specified parts of digestive tract; Z90.710 Acquired absence of both cervix and uterus
CPT/HCPCS: 43239

== ENCOUNTER → 2018-09-26 | Outpatient (REF) | payer OTHER ==
[~2018-09-26] MED LIST changes: +BENA25CA4 PO; +CARA1TAB6 PO; +CEPH500C PO; +CIPR-249 PO; -FOSI1TAB8 PO; +FOSI20TA3 PO; +FURO20TA2 PO; +INSUN SC; +INSUN SQ; +LEVO50TA5 PO; +LOPR1TAB6 PO; +MACR100C43 PO; +MELA1TAB15 PO; +METO1TAB87 PO; +NYAM10003; +PANT20TA2 PO; +PERC10TA26 PO; +PRED20TA PO; +PROM12.56 PO; +RANI150T PO; +SITA50TAB PO; +SUCR1TA PO; +TIZA4CAP PO; -TIZA4CAP3 PO; +VANC250C2; +VENTAER INH
== END ==
LOC: M LAB REF 18:11
PROVIDERS: ATTEND Nurse Practitioner Family
DX: M25.571 Pain in right ankle and joints of right foot (principal)

== ENCOUNTER → 2018-10-21 | Outpatient (REF) | payer OTHER ==
[2018-10-21 17:23] LABS: INFLUENZA A AMPLIFICATION POSITIVE (NEGATIVE); INFLUENZA B AMPLIFICATION NEGATIVE (NEGATIVE)
== END ==
LOC: M LAB REF 16:29
PROVIDERS: ATTEND Nurse Practitioner Family
DX: R05 Cough (principal); R50.9 Fever, unspecified

== ENCOUNTER → 2018-11-10 | Outpatient (REF) | payer OTHER | LOC: M LAB REF 12:54 | PROVIDERS: ATTEND Nurse Practitioner Family | DX: M79.605 Pain in left leg (principal) ==

== ENCOUNTER 2018-11-21 21:18 | Emergency (ER) | payer MEDICARE, OTHER ==
[~2018-11-21] VITALS: Ht 167.6 cm; Wt 104.5 kg
--- NOTE | 2018-11-21 23:37 | REPVR ---
EXAM: US Duplex Left Lower Extremity Veins, Limited EXAM DATE/TIME: 11/21/2018 10:33 PM CLINICAL HISTORY: 53 years old, female; Pain; Leg, upper; Left TECHNIQUE: Real-time Duplex ultrasound of the Left Lower Extremity with 2-D guevara scale, color Doppler flow and spectral waveform analysis. Limited exam focused on the left lower extremity veins. COMPARISON: No relevant prior studies available. FINDINGS: Left deep veins: Unremarkable. The common femoral, femoral, proximal profunda femoral and popliteal veins are patent without thrombus. Normal Doppler waveforms. Normal compressibility and/or augmentation response. Left superficial veins: Unremarkable. Saphenofemoral junction is patent without thrombus. Soft tissues: Unremarkable. IMPRESSION: No acute findings. No evidence of deep vein thrombosis. Electronically signed by: David Reynoso On 11/21/2018 23:37:16 PM
[2018-11-22 00:59] VITALS: BP 139/87
== END 2018-11-22 01:02 | disposition home or self-care (01) ==
LOC: M ED 21:18
DX: I83.812 Varicose veins of left lower extremity with pain (principal); I87.2 Venous insufficiency (chronic) (peripheral); M51.35 Other intervertebral disc degeneration, thoracolumbar region; Z86.711 Personal history of pulmonary embolism; Z86.718 Personal history of other venous thrombosis and embolism; Z79.4 Long term (current) use of insulin; Z79.899 Other long term (current) drug therapy; Z88.0 Allergy status to penicillin; Z88.8 Allergy status to other drugs, medicaments and biological substances; Z88.1 Allergy status to other antibiotic agents; Z91.02 Food additives allergy status

== ENCOUNTER 2019-01-11 09:46 | Emergency (ER) | payer MEDICARE ==
[~2019-01-11] VITALS: Ht 165.1 cm; Wt 108.1 kg
[~2019-01-11 09:46] MED LIST changes: -/BACL20TA OR; -/DULO30CA OR; -/PANT40TA; -/PANT40TA PO; -/ROPI5TA OR; +BACL1TAB9 OR; +CLON0.2D TD; -CLON1PA TD; +CLON1PAT TD; -CLON2PA TD; +CYMB1CAP5 OR; -FOSI20TA3 PO; +FOSI20TA60 PO; +OXYC1TAB23 PO; -PERCOCET PO; +PROT1TAB2; +PROT1TAB2 PO; +REQU1TAB15 OR; -VANC250C2; +VANC250C3
[2019-01-11 11:18] LABS: BASO # 0.1 10^3/uL (0.0-0.2); BASO % 0.7 % (0.0-1.0); EOS # 0.2 10^3/uL (0.0-0.50); EOS % 1.8 % (0.0-3.0); HEMATOCRIT 48.2 % (36.0-47.0); HEMOGLOBIN 15.8 g/dl (12.0-15.5); LYMPH % 30.4 % (24.0-44.0); MEAN CORPUSCULAR HEMOGLOBIN 28.9 pg (27.0-33.0); MEAN CORPUSCULAR HGB CONC 32.8 g/dl (32.0-36.5); MEAN CORPUSCULAR VOLUME 88.3 fl (80.0-96.0); MONO # 0.6 10^3/uL (0.0-0.8); MONO % 6.2 % (0.0-5.0); NEUTROPHILS % 60.6 % (36.0-66.0); PLATELET COUNT, AUTOMATED 218 10^3/uL (150-450); RED BLOOD COUNT 5.46 10^6/uL (4.00-5.40); WHITE BLOOD COUNT 9.9 10^3/uL (4.0-10.0)
--- NOTE | 2019-01-11 11:36 | REP ---
Duplex extremity venous ultrasound: The left lower extremity. History: Redness and swelling, recent surgery. Question DVT. Findings: The deep veins are anechoic and fully compressible from the groin to the popliteal fossa in the left lower extremity. Color flow imaging is homogeneous. Spectral Doppler interrogation demonstrates intact respiratory variation in flow and normal manual augmentation of flow. There is no evidence of deep vein thrombosis. Impression: Negative left lower extremity duplex venous ultrasound. No evidence of deep vein thrombosis. Electronically Signed by Renaldo Edmondson MD 01/11/2019 11:27 A
[2019-01-11 11:43] LABS: BLOOD UREA NITROGEN 10 MG/DL (7-18); C REACTIVE PROTEIN QUANTITATIV 2.09 MG/DL (0.00-0.30); CALCIUM LEVEL 9.3 MG/DL (8.5-10.1); CARBON DIOXIDE LEVEL 34 MEQ/L (21-32); CHLORIDE LEVEL 97 MEQ/L (98-107); CREATININE FOR GFR 0.77 MG/DL (0.55-1.30); GLOMERULAR FILTRATION RATE > 60.0 (>51); GLUCOSE, FASTING 341 MG/DL (70-100); POTASSIUM SERUM 4.4 MEQ/L (3.5-5.1); SODIUM LEVEL 134 MEQ/L (136-145)
[2019-01-11 11:56] LABS: ERYTHROCYTE SEDIMENTATION RATE 7 mm/hr (0-30)
[2019-01-11 13:29] VITALS: BP 145/95
== END 2019-01-11 13:32 | disposition home or self-care (01) ==
LOC: M ED 09:46
DX: M79.605 Pain in left leg (principal); T81.72XA Complication of vein following a procedure, not elsewhere classified, initial encounter; X58.XXXA Exposure to other specified factors, initial encounter; Y92.89 Other specified places as the place of occurrence of the external cause; E11.9 Type 2 diabetes mellitus without complications; I10 Essential (primary) hypertension; E03.9 Hypothyroidism, unspecified; F33.9 Major depressive disorder, recurrent, unspecified; F41.9 Anxiety disorder, unspecified; K21.9 Gastro-esophageal reflux disease without esophagitis; G47.33 Obstructive sleep apnea (adult) (pediatric); Z86.73 Personal history of transient ischemic attack (TIA), and cerebral infarction without residual deficits; Z87.19 Personal history of other diseases of the digestive system; Z79.899 Other long term (current) drug therapy; Z79.890 Hormone replacement therapy; Z88.0 Allergy status to penicillin; Z88.8 Allergy status to other drugs, medicaments and biological substances

== ENCOUNTER 2019-03-04 10:45 | Emergency (ER) | payer MEDICARE ==
[~2019-03-04] VITALS: Ht 167.6 cm; Wt 110.0 kg
[2019-03-04] MEDS ORDERED: CYCLOBENZAPRINE 5MG TABLET PO ONE (11:45)
[2019-03-04] MEDS ORDERED: KETAMINE IV ONE (11:45)
[2019-03-04] MEDS ORDERED: LIDOCAINE 5% (LIDODERM) PATCH TD ONE (11:45)
[2019-03-04] MEDS ORDERED: DILUENT IV ONE (11:45)
[2019-03-04] MEDS ORDERED: NACL IV ONE (11:45)
[2019-03-04 12:23] LABS: BASO # 0.1 10^3/uL (0.0-0.2); BASO % 0.6 % (0.0-1.0); EOS # 0.2 10^3/uL (0.0-0.50); EOS % 1.8 % (0.0-3.0); HEMATOCRIT 48.2 % (36.0-47.0); HEMOGLOBIN 15.7 g/dl (12.0-15.5); LYMPH # 3.3 10^3/uL (1.5-4.5); LYMPH % 30.8 % (24.0-44.0); MEAN CORPUSCULAR HEMOGLOBIN 28.2 pg (27.0-33.0); MEAN CORPUSCULAR HGB CONC 32.6 g/dl (32.0-36.5); MEAN CORPUSCULAR VOLUME 86.5 fl (80.0-96.0); MONO # 0.6 10^3/uL (0.0-0.8); MONO % 5.9 % (0.0-5.0); NEUTROPHILS # 6.4 10^3/uL (1.8-7.7); NEUTROPHILS % 60.6 % (36.0-66.0); PLATELET COUNT, AUTOMATED 204 10^3/uL (150-450); RED BLOOD COUNT 5.57 10^6/uL (4.00-5.40); WHITE BLOOD COUNT 10.5 10^3/uL (4.0-10.0)
[2019-03-04 12:46] LABS: BLOOD UREA NITROGEN 17 MG/DL (7-18); CALCIUM LEVEL 8.7 MG/DL (8.5-10.1); CARBON DIOXIDE LEVEL 31 MEQ/L (21-32); CHLORIDE LEVEL 99 MEQ/L (98-107); CREATININE FOR GFR 0.86 MG/DL (0.55-1.30); GLOMERULAR FILTRATION RATE > 60.0 (>51); GLUCOSE, FASTING 336 MG/DL (70-100); POTASSIUM SERUM 4.4 MEQ/L (3.5-5.1); SODIUM LEVEL 136 MEQ/L (136-145)
[2019-03-04] MEDS ORDERED: tiZANidine 4 MG TAB PO ONE (13:15)
[2019-03-04] MEDS ORDERED: rOPINIRole 2MG TAB PO ONE (13:15)
[2019-03-04 13:16] VITALS: BP 169/79
--- NOTE | 2019-03-04 15:02 | REP ---
Clinical: Cough . Comparison: 11/03/2018 . Technique: PA and lateral. Findings: The mediastinum and cardiac silhouette are normal. The lung hodges are clear and without acute consolidation, effusion, or pneumothorax. The skeletal structures are intact and normal. Impression: 1. No acute cardiopulmonary process. Electronically Signed by Wm Ovalle MD 03/04/2019 12:33 P
== END 2019-03-04 13:35 | disposition home or self-care (01) ==
LOC: M ED 10:45
DX: M54.5 Low back pain (principal); G89.29 Other chronic pain; E11.65 Type 2 diabetes mellitus with hyperglycemia; R05 Cough; R06.02 Shortness of breath; M79.605 Pain in left leg; G90.523 Complex regional pain syndrome I of lower limb, bilateral; I10 Essential (primary) hypertension; K21.9 Gastro-esophageal reflux disease without esophagitis; Z86.718 Personal history of other venous thrombosis and embolism; G25.81 Restless legs syndrome; M51.34 Other intervertebral disc degeneration, thoracic region; R10.9 Unspecified abdominal pain; K52.9 Noninfective gastroenteritis and colitis, unspecified; M50.30 Other cervical disc degeneration, unspecified cervical region; F17.200 Nicotine dependence, unspecified, uncomplicated; Z88.8 Allergy status to other drugs, medicaments and biological substances; Z88.6 Allergy status to analgesic agent; Z88.1 Allergy status to other antibiotic agents; Z88.5 Allergy status to narcotic agent; Z79.899 Other long term (current) drug therapy; Z79.891 Long term (current) use of opiate analgesic

== ENCOUNTER 2019-04-06 01:34 | Inpatient (IN) | payer MEDICARE ==
[~2019-04-06] VITALS: Ht 162.6 cm; Wt 102.3 kg
[2019-04-06 02:20] LABS: ACETAMINOPHEN LEVEL < 2.0 UG/ML (10.0-30.0); BLOOD UREA NITROGEN 12 MG/DL (7-18); CALCIUM LEVEL 9.1 MG/DL (8.5-10.1); CARBON DIOXIDE LEVEL 30 MEQ/L (21-32); CHLORIDE LEVEL 100 MEQ/L (98-107); CREATININE FOR GFR 1.01 MG/DL (0.55-1.30); ETHYL ALCOHOL (ETHANOL) < 0.003 % (0.000-0.010); GLOMERULAR FILTRATION RATE > 60.0 (>51); GLUCOSE, FASTING 571 MG/DL (70-100); POTASSIUM SERUM 4.4 MEQ/L (3.5-5.1); SALICYLATE LEVEL 1.9 MG/DL (5.0-30.0); SODIUM LEVEL 136 MEQ/L (136-145)
[2019-04-06] MEDS ORDERED: NS 1,000 ML IV ONE ×3 (03:00→06:00)
[2019-04-06] MEDS ORDERED: HumuLIN R (REGULAR) INSULIN (NovoLIN R) **100U/ML** PER UNIT IV ONE ×2 (03:00→04:15)
[2019-04-06 05:19] LABS: BASO % 0.3 % (0.0-1.0); EOS % 1.4 % (0.0-3.0); HEMATOCRIT 50.3 % (36.0-47.0); HEMOGLOBIN 16.4 g/dl (12.0-15.5); LYMPH # 3.2 10^3/uL (1.5-4.5); LYMPH % 20.9 % (24.0-44.0); MEAN CORPUSCULAR HEMOGLOBIN 28.9 pg (27.0-33.0); MEAN CORPUSCULAR HGB CONC 32.6 g/dl (32.0-36.5); MEAN CORPUSCULAR VOLUME 88.6 fl (80.0-96.0); MONO % 5.9 % (0.0-5.0); NEUTROPHILS % 71.2 % (36.0-66.0); PLATELET COUNT, AUTOMATED 240 10^3/uL (150-450); RED BLOOD COUNT 5.68 10^6/uL (4.00-5.40); WHITE BLOOD COUNT 15.5 10^3/uL (4.0-10.0)
[2019-04-06 05:20] LABS: BASO # 0.1 10^3/uL (0.0-0.2); EOS # 0.2 10^3/uL (0.0-0.50); MONO # 0.9 10^3/uL (0.0-0.8)
[2019-04-06 05:31] LABS: ALBUMIN 3.7 GM/DL (3.2-5.2); ALT/SGPT 16 U/L (12-78); BILIRUBIN,DIRECT 0.1 MG/DL (0.0-0.2); BILIRUBIN,TOTAL 0.3 MG/DL (0.2-1.0); TOTAL PROTEIN 7.2 GM/DL (6.4-8.2)
[2019-04-06] MEDS ORDERED: SODIUM CHLORIDE 0.9% 1000ML IV STA (06:05)
[2019-04-06] MEDS ORDERED: BACL1TAB9 PO (06:13)
[2019-04-06] MEDS ORDERED: MYLASSUD PO (06:13)
[2019-04-06] MEDS ORDERED: DIAZ5TAB PO (06:13)
[2019-04-06] MEDS ORDERED: CARDCAP3 PO (06:13)
[2019-04-06] MEDS ORDERED: D-101000 PO (06:28)
[2019-04-06] MEDS ORDERED: ROPI2TAB PO (06:28)
[2019-04-06] MEDS ORDERED: ROZE8TAB16 PO (06:28)
[2019-04-06] MEDS ORDERED: RIZA10TA4 PO (06:28)
[2019-04-06] MEDS ORDERED: METO1TAB87 PO (06:28)
[2019-04-06 06:32] VITALS: BP 110/66
[2019-04-06] MEDS ORDERED: POTA99TA10 PO (06:32)
[2019-04-06] MEDS: NS 1,000 ML IV SCH ×2 (06:38→14:27)
--- NOTE | 2019-04-06 07:01 | HPEPDOC ---
[facility] Medical History & Physical Date of Admission Apr 06, 2019 Date of Service: Apr 06, 2019 Attending Physician: DEJA PANCHAL MD History and Physical CHIEF COMPLAINT: Unintentional overdose on baclofen HISTORY OF PRESENT ILLNESS: 52-year-old female with a history of chronic back pain and diabetes. Patient took 5-6 baclofen because she was in severe pain. She become drowsy and very sleepy than she was brought to the ER for further evaluation. Blood pressure in the 80s in the ER and patient received 2 L of IV fluid. Her blood sugar was above 500 and she received insulin and IV fluid. She is still sleepy and drowsy but arousable, open deep stimulus and her blood pressure still in the 80s after 2 L of IV fluid, so she was referred to us for admission. PAST MEDICAL HISTORY: IDDM. Morbid obesity. CK D Depression. RDS. dizziness. Chronic back pain. Herniated disks PAST SURGICAL HISTORY: SOCIAL HISTORY: Unable to obtain due to severe drowsiness FAMILY HISTORY: Unable to review due to severe drowsiness ALLERGIES: Please see below. REVIEW OF SYSTEMS: Patient very drowsy and sleepy, so unable to obtain HOME MEDICATIONS: Please see below. PHYSICAL EXAMINATION: VITAL SIGNS: See below. GENERAL APPEARANCE: . Very drowsy, sleepy, but no Dr. distress HEENT: . Pupils are small and fixed with minimal reaction CARDIOVASCULAR: . S1, S2, regular LUNGS: . Clear bilaterally. No wheezes, no rhonchi ABDOMEN: . Supple. The basilar non tender EXTREMITIES: . 2+ pulses NEUROLOGICAL: . Patient responded to deep stimulus, but for no clubbing, open LABORATORY DATA: See below. IMAGING: MICROBIOLOGY: Please see below. ASSESSMENT: . . PLAN: #1. Unintentional drug overdose. Poison control was called by nurse. We will follow accommodation./Hydration and observe closely #2 acute encephalopathy secondary to drug overdose Hydration and neuro check. #3 Hyperglycemia. Accu-Chek with insulin coverage. Hydration #4. Leukocytosis Likely reactive. #5. Dehydration Hydration #6. Hypotension, likely from dehydration and overdose Hydration and keep BP above 95 #7. Depression Patient not suicidal. #8 . GERD on Protonix Heparin subcutaneous for DVT prophylaxis. Patient stable at present, but still very drowsy and sleepy. Observe closely with neuro check. Monitor Her blood sugar. Discussed with Dr. Panchal. Also discussed with bedside. Time spent 45 minutes Vital Signs Vital Signs Date Time Temp Pulse Resp B/P (MAP) Pulse Ox O2 Delivery O2 Flow Rate FiO2 04/06/19 06:32 96.5 58 18 110/66 (81) 97 3.0 Laboratory Data Labs 24H Laboratory Tests 2 04/06/19 01:46: Immature Granulocyte % (Auto) 0.3, White Blood Count 15.5H, Red Blood Count 5.68H, Hemoglobin 16.4H, Hematocrit 50.3H, Mean Corpuscular Volume 88.6, Mean Corpuscular Hemoglobin 28.9, Mean Corpuscular Hemoglobin Concent 32.6, Red Cell Distribution Width 13.2, Platelet Count 240, Neutrophils (%) (Auto) 71.2H, Lymphocytes (%) (Auto) 20.9L, Monocytes (%) (Auto) 5.9H, Eosinophils (%) (Auto) 1.4, Basophils (%) (Auto) 0.3, Neutrophils # (Auto) 11.0H, Lymphocytes # (Auto) 3.2, Monocytes # (Auto) 0.9H, Eosinophils # (Auto) 0.2, Basophils # (Auto) 0.1, Nucleated Red Blood Cells % (auto) 0.0, Anion Gap 6L, Glomerular Filtration Rate > 60.0, Calcium Level 9.1, Aspartate Amino Transf (AST/SGOT) 15, Alanine Aminotransferase (ALT/SGPT) 16, Alkaline Phosphatase 109, Total Bilirubin 0.3, Direct Bilirubin 0.1, Total Protein 7.2, Albumin 3.7, Albumin/Globulin Ratio 1.06, Salicylates Level 1.9L, Acetaminophen Level < 2.0L, Ethyl Alcohol Level < 0.003 04/06/19 01:47: Bedside Glucose (Misc Panel) 559*H 04/06/19 03:46: Bedside Glucose (Misc Panel) 386H 04/06/19 04:58: Bedside Glucose (Misc Panel) 220H CBC/BMP Laboratory Tests 04/06/19 01:46 Red Blood Count 5.68 H, Mean Corpuscular Volume 88.6, Mean Corpuscular Hemoglobin 28.9, Mean Corpuscular Hemoglobin Concent 32.6, Red Cell Distribution Width 13.2, Neutrophils (%) (Auto) 71.2 H, Lymphocytes (%) (Auto) 20.9 L, Monocytes (%) (Auto) 5.9 H, Eosinophils (%) (Auto) 1.4, Basophils (%) (Auto) 0.3, Neutrophils # (Auto) 11.0 H, Lymphocytes # (Auto) 3.2, Monocytes # (Auto) 0.9 H, Eosinophils # (Auto) 0.2, Basophils # (Auto) 0.1 Home Medications Scheduled Baclofen (Baclofen) 20 Mg Tab, 20 MG PO TID Baclofen (Baclofen) 20 Mg Tablet, 40 MG PO QHS Cholecalciferol (Vitamin D3) (Vitamin D3) 1,000 Unit Capsule, 1,000 UNIT PO DAILY Diazepam (Diazepam) 2 Mg Tab, 2 MG PO QHS SEE COMMENTS TAKES WITH 5MG TABLET QHS FOR TOTAL OF 7MG Diazepam (Diazepam) 5 Mg Tablet, 5 MG PO QHS TAKES WITH 2MG TABLET QHS FOR TOTAL OF 7MG Diphenhydramine HCl (Benadryl) 25 Mg Cap, 50 MG PO QHS Duloxetine HCl (Cymbalta) 20 Mg Cap, 20 MG PO DAILY Furosemide (Furosemide) 20 Mg Tab, 20 MG PO DAILY Insulin Human NPH (Novolin N) 1 Ml Susp, 50 UNITS SQ BID SEE ALLERGY NOTE Levothyroxine Sodium (Levothyroxine Sodium) 50 Mcg Tab, 50 MCG PO DAILY Metoprolol Tartrate (Lopressor) 50 Mg Tab, 50 MG PO DAILY Metoprolol Tartrate (Metoprolol Tartrate) 25 Mg Tablet, 25 MG PO QHS Morphine Sulfate (Morphine Sulfate ER) 30 Mg Tabcr, 30 MG PO BID Mv-Min/Folic/Vit K/Lycop/Coq10 (Daily Multivitamin Capsule) 1 Each Capsule, 1 CAP PO DAILY Oxycodone HCl/Acetaminophen (Percocet 10-325 mg Tablet) 1 Tab Tab, 1 TAB PO BID Pantoprazole Sodium (Pantoprazole Sodium) 20 Mg Tab, 20 MG PO BID Potassium Gluconate (Potassium Gluconate) 99 Mg Tablet, 99 MG PO DAILY Ramelteon (Rozerem) 8 Mg Tablet, 8 MG PO QHS Ranitidine HCl (Ranitidine HCl) 150 Mg Tab, 1 TAB PO DAILY TAKES WITH LUNCH NEEDED Rizatriptan Benzoate (Rizatriptan) 10 Mg Tab.rapdis, 10 MG PO ASDIRECTED Ropinirole HCl (Ropinirole HCl) 2 Mg Tablet, 2 MG PO BID Tizanidine HCl (Tizanidine HCl) 4 Mg Cap, 4 MG PO TID Scheduled PRN Albuterol Sulfate (Ventolin Hfa) 108 Mcg/Act Aer, 2 PUFFS INH Q4H PRN for SOB/WHEEZING Aluminum/Magnesium/Simeth (Mag-Al Plus Suspension) 30 Ml Oral.susp, 15 ML PO Q6H PRN for INDIGESTION Diazepam (Diazepam) 5 Mg Tab, 5 MG PO DAILY PRN for ANXIETY SEE COMMENTS Nystatin (Nystatin Powder) 100,000 Unit/Gm Pow, 1 DOSE TOP QHS PRN for RASH/ITCHING Promethazine HCl (Promethazine HCl) 12.5 Mg Tab, 12.5 MG PO Q6H PRN for NAUSEA Allergies Coded Allergies: metoclopramide (Verified Allergy, Severe, anaphylaxis, 03/04/19) ondansetron (Verified Allergy, Severe, hive/anaphylaxis, 03/04/19) prochlorperazine (Verified Allergy, Severe, anaphylaxis, 03/04/19) Insulins (Verified Allergy, Intermediate, hives - CAN TAKE NOVOLIN N ONLY, 03/04/19) aspirin (Verified Allergy, Intermediate, hives, 03/04/19) ciprofloxacin (Verified Allergy, Intermediate, hives, 03/04/19) clonidine (Verified Allergy, Intermediate, rash, 03/04/19) naproxen (Verified Allergy, Intermediate, rash, 03/04/19) sucralfate (Verified Allergy, Intermediate, hives, 03/04/19) ketamine (Verified Adverse Reaction, Severe, "can't move legs", 03/04/19) amoxicillin (Verified Adverse Reaction, Mild, stomach cramps, 03/04/19) clavulanic acid (Verified Adverse Reaction, Mild, stomach cramps, 03/04/19) guaifenesin (Verified Adverse Reaction, Mild, insomnia, 03/04/19) A-FIB/CHADSVASC A-FIB History Current/History of A-Fib/PAF?: No CHERIE BARCENAS PA-C Apr 06, 2019 07:01
[2019-04-06] MEDS ORDERED: ALBUTEROL 90 MCG/ACT 8GM HFA INHALER INH PRN (07:15)
[2019-04-06 08:41] VITALS: BP 102/59
[2019-04-06] MEDS: PANTOPRAZOLE 20 MG TAB PO SCH ×2 (09:00→20:47)
[2019-04-06] MEDS: LEVOTHYROXINE 50MCG TABLET (0.05MG) PO SCH (09:49)
[2019-04-06] MEDS: HumuLIN N INSULIN (NovoLIN N) PER UNIT SQ SCH ×2 (10:22→21:00)
[2019-04-06 11:29] LABS: ABG BASE EXCESS 0.6 (-2.0-2.0); ABG HCO3 25.1 MEQ/L (22.0-26.0); ABG PARTIAL PRESSURE O2 62.7 mmHg (75.0-100.0); ABG STANDARD HCO3 24.9 MEQ/L (22.0-26.0); ABG TOTAL CO2 26.4 MEQ/L (22.0-29.0); ABG pH (ARTERIAL) 7.416 UNITS (7.350-7.450)
[2019-04-06 11:48] VITALS: BP 160/72
[2019-04-06 16:00] VITALS: BP 138/77
[2019-04-06 20:00] VITALS: BP 171/101
[2019-04-06] MEDS ORDERED: HumuLIN N INSULIN (NovoLIN N) PER UNIT SC ONE (21:45)
[2019-04-06 23:59] VITALS: BP 166/81
[2019-04-07 04:00] VITALS: BP 140/104
[2019-04-07 04:43] LABS: HEMATOCRIT 48.7 % (36.0-47.0); HEMOGLOBIN 16.1 g/dl (12.0-15.5); MEAN CORPUSCULAR HEMOGLOBIN 28.4 pg (27.0-33.0); MEAN CORPUSCULAR HGB CONC 33.1 g/dl (32.0-36.5); MEAN CORPUSCULAR VOLUME 85.9 fl (80.0-96.0); PLATELET COUNT, AUTOMATED 217 10^3/uL (150-450); RED BLOOD COUNT 5.67 10^6/uL (4.00-5.40); WHITE BLOOD COUNT 12.1 10^3/uL (4.0-10.0)
[2019-04-07 05:11] LABS: ALBUMIN 3.5 GM/DL (3.2-5.2); ALT/SGPT 14 U/L (12-78); BILIRUBIN,TOTAL 0.6 MG/DL (0.2-1.0); BLOOD UREA NITROGEN 7 MG/DL (7-18); CARBON DIOXIDE LEVEL 28 MEQ/L (21-32); CHLORIDE LEVEL 110 MEQ/L (98-107); CREATININE FOR GFR 0.67 MG/DL (0.55-1.30); GLOMERULAR FILTRATION RATE > 60.0 (>51); GLUCOSE, FASTING 118 MG/DL (70-100); MAGNESIUM LEVEL 2.2 MG/DL (1.8-2.4); POTASSIUM SERUM 3.8 MEQ/L (3.5-5.1); SODIUM LEVEL 146 MEQ/L (136-145); TOTAL PROTEIN 7.1 GM/DL (6.4-8.2)
[2019-04-07] MEDS: LEVOTHYROXINE 50MCG TABLET (0.05MG) PO SCH (06:00)
[2019-04-07] MEDS ORDERED: METOPROLOL TART 50 MG TAB PO SCH (06:00)
[2019-04-07 08:38] VITALS: BP 150/98
[2019-04-07] MEDS: HumuLIN N INSULIN (NovoLIN N) PER UNIT SQ SCH (09:00)
[2019-04-07] MEDS: PANTOPRAZOLE 20 MG TAB PO SCH (09:00)
[2019-04-07] MEDS ORDERED: NOVOLIN N SQ SCH ×3 (09:00→17:30)
--- NOTE | 2019-04-07 12:10 | MHCRPDOC ---
[facility] Consultation Consultation DATE OF CONSULTATION: 04/07/19 CONSULTATION REQUESTED BY: Dr. Cox REASON FOR CONSULTATION: s/p unintentional drug OD RELEVANT HISTORY: Per medical admit note: "52-year-old female with a history of chronic back pain and diabetes. Patient took 5-6 baclofen because she was in severe pain. She become drowsy and very sleepy than she was brought to the ER for further evaluation. Blood pressure in the 80s in the ER and patient received 2 L of IV fluid. Her blood sugar was above 500 and she received insulin and IV fluid. She is still sleepy and drowsy but arousable, open deep stimulus and her blood pressure still in the 80s after 2 L of IV fluid, so she was referred to us for admission." Pt seen with in her room in Hosp bed. States she had had a busy day going to the [employer] with her aunt and walking around a lot and came home and her leg muscles would not stop with the leg spasms so took more bacl ofen then she regularly does just to stop them. States she realizes she should have taken so much and did not tell her until later in day. Pt states it was not a suicide attempt and has no desire to as she loves her and her 2 daughters. Her feels she is safe to go home with him and he has locked up all her medication so she will know have to get it from him so doesn't happen again. Pt also states she will not do it again as doesn't want to be in the hospital but out enjoying her life with her family and friends. She denies depression, anxiety, insomnia, SI/HI, hallucinations, delusions. She feels safe to go home with her . PAST PSYCHIATRIC HISTORY: history of depression Denies history of psych admission or SA currently takes cymbalta 20mg daily and valium 7mg qhs prescribed by PCP PAST MEDICAL HISTORY: IDDM. Morbid obesity. CK D Depression. RDS. dizziness. Chronic back pain. 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 Description of abnormal or psychotic thoughts: denies Judgment: good Insight: good. Orientation to x3. Recent and remote memory: intact. Attention span and concentration: good Language: appropriate. Fund of knowledge: average. Mood: "good". Affect: euthymic, full, congruent DIAGNOSIS: 1. Anxiety due to GME (general medical illness). PLAN: 1.d/c 1:1 sitter 2. d/c home with mental health f/u once medically cleared Thank you. Vital Signs Vital Signs Date Time Temp Pulse Resp B/P (MAP) Pulse Ox O2 Delivery O2 Flow Rate FiO2 04/07/19 08:38 96.2 58 19 150/98 (115) 97 04/06/19 08:41 3.0 Laboratory Data 24H Labs Laboratory Tests 2 04/06/19 20:34: Bedside Glucose (Misc Panel) 146H 04/06/19 21:37: Bedside Glucose (Misc Panel) 200H 04/07/19 00:41: Bedside Glucose (Misc Panel) 153H 04/07/19 04:28: Nucleated Red Blood Cells % (auto) 0.0, Anion Gap 8, Glomerular Filtration Rate > 60.0, Blood Urea Nitrogen 7, Creatinine 0.67, Sodium Level 146#H, Potassium Level 3.8, Chloride Level 110H, Carbon Dioxide Level 28, Calcium Level 9.0, Aspartate Amino Transf (AST/SGOT) 18, Alanine Aminotransferase (ALT/SGPT) 14, Alkaline Phosphatase 92, Total Bilirubin 0.6#, Total Protein 7.1, Albumin 3.5, Magnesium Level 2.2, Albumin/Globulin Ratio 0.97L Home Medications Current Medications Current Medications Medications (Trade) Dose Ordered Sig/Kamari Route PRN Reason Start Time Stop Time Status Last Admin Dose Admin Albuterol Sulfate (Proventil, Ventolin Hfa) 2 puff Q4H PRN INH SOB/WHEEZING 04/06/19 07:15 Home Med (Med Rec Complete!) ASDIRECTED XX 04/06/19 06:45 04/06/19 06:45 DC Insulin Human NPH (HumuLIN NPH INSULIN) 50 units BID SQ 04/06/19 09:00 04/06/19 10:22 Levothyroxine Sodium (Synthroid) 50 mcg DAILY@0600 PO 04/06/19 06:00 Metoprolol Tartrate (Lopressor) 50 mg BID PO 04/07/19 06:00 Cancel Pantoprazole Sodium (Protonix) 20 mg BID PO 04/06/19 09:00 04/06/19 20:47 Patient Own Medication (Patient'S Own Med) 1 tab (50mg) PO BID BID PO 04/07/19 07:00 04/07/19 06:59 Sodium Chloride 1,000 ml @ 100 mls/hr Q10H IV 04/06/19 06:15 04/06/19 22:54 DC 04/06/19 14:27 Sodium Chloride (Nacl 0.9%) 3,330 ml BOLUS STAT IV 04/06/19 06:05 04/06/19 06:14 DC Scheduled Baclofen (Baclofen) 20 Mg Tab, 20 MG PO TID, (Reported) Baclofen (Baclofen) 20 Mg Tablet, 40 MG PO QHS, (Reported) Cholecalciferol (Vitamin D3) (Vitamin D3) 1,000 Unit Capsule, 1,000 UNIT PO DAILY, (Reported) Diazepam (Diazepam) 2 Mg Tab, 2 MG PO QHS, (Reported) SEE COMMENTS TAKES WITH 5MG TABLET QHS FOR TOTAL OF 7MG Diazepam (Diazepam) 5 Mg Tablet, 5 MG PO QHS, (Reported) TAKES WITH 2MG TABLET QHS FOR TOTAL OF 7MG Diphenhydramine HCl (Benadryl) 25 Mg Cap, 50 MG PO QHS, (Reported) Duloxetine HCl (Cymbalta) 20 Mg Cap, 20 MG PO DAILY, (Reported) Furosemide (Furosemide) 20 Mg Tab, 20 MG PO DAILY, (Reported) Insulin Human NPH (Novolin N) 1 Ml Susp, 50 UNITS SQ BID, (Reported) SEE ALLERGY NOTE Levothyroxine Sodium (Levothyroxine Sodium) 50 Mcg Tab, 50 MCG PO DAILY, (Reported) Metoprolol Tartrate (Lopressor) 50 Mg Tab, 50 MG PO DAILY, (Reported) Metoprolol Tartrate (Metoprolol Tartrate) 25 Mg Tablet, 25 MG PO QHS, (Reported) Morphine Sulfate (Morphine Sulfate ER) 30 Mg Tabcr, 30 MG PO BID, (Reported) Mv-Min/Folic/Vit K/Lycop/Coq10 (Daily Multivitamin Capsule) 1 Each Capsule, 1 CAP PO DAILY, (Reported) Oxycodone HCl/Acetaminophen (Percocet 10-325 mg Tablet) 1 Tab Tab, 1 TAB PO BID, (Reported) Pantoprazole Sodium (Pantoprazole Sodium) 20 Mg Tab, 20 MG PO BID, (Reported) Potassium Gluconate (Potassium Gluconate) 99 Mg Tablet, 99 MG PO DAILY, (Reported) Ramelteon (Rozerem) 8 Mg Tablet, 8 MG PO QHS, (Reported) Ranitidine HCl (Ranitidine HCl) 150 Mg Tab, 1 TAB PO DAILY, (Reported) TAKES WITH LUNCH NEEDED Rizatriptan Benzoate (Rizatriptan) 10 Mg Tab.rapdis, 10 MG PO ASDIRECTED, (Reported) Ropinirole HCl (Ropinirole HCl) 2 Mg Tablet, 2 MG PO BID, (Reported) Tizanidine HCl (Tizanidine HCl) 4 Mg Cap, 4 MG PO TID, (Reported) Scheduled PRN Albuterol Sulfate (Ventolin Hfa) 108 Mcg/Act Aer, 2 PUFFS INH Q4H PRN for SOB/WHEEZING, (Reported) Aluminum/Magnesium/Simeth (Mag-Al Plus Suspension) 30 Ml Oral.susp, 15 ML PO Q6H PRN for INDIGESTION, (Reported) Diazepam (Diazepam) 5 Mg Tab, 5 MG PO DAILY PRN for ANXIETY, (Reported) SEE COMMENTS Nystatin (Nystatin Powder) 100,000 Unit/Gm Pow, 1 DOSE TOP QHS PRN for RASH/ITCHING, (Reported) Promethazine HCl (Promethazine HCl) 12.5 Mg Tab, 12.5 MG PO Q6H PRN for NAUSEA, (Reported) Allergies Coded Allergies: metoclopramide (Verified Allergy, Severe, anaphylaxis, 03/04/19) ondansetron (Verified Allergy, Severe, hive/anaphylaxis, 03/04/19) prochlorperazine (Verified Allergy, Severe, anaphylaxis, 03/04/19) Insulins (Verified Allergy, Intermediate, hives - CAN TAKE NOVOLIN N ONLY, 03/04/19) aspirin (Verified Allergy, Intermediate, hives, 03/04/19) ciprofloxacin (Verified Allergy, Intermediate, hives, 03/04/19) clonidine (Verified Allergy, Intermediate, rash, 03/04/19) naproxen (Verified Allergy, Intermediate, rash, 03/04/19) sucralfate (Verified Allergy, Intermediate, hives, 03/04/19) ketamine (Verified Adverse Reaction, Severe, "can't move legs", 03/04/19) amoxicillin (Verified Adverse Reaction, Mild, stomach cramps, 03/04/19) clavulanic acid (Verified Adverse Reaction, Mild, stomach cramps, 03/04/19) guaifenesin (Verified Adverse Reaction, Mild, insomnia, 03/04/19) REUBEN HINDS DO Apr 07, 2019 11:37 am
[2019-04-07 12:21] VITALS: BP 178/96
--- NOTE | 2019-04-07 21:42 | ECGEPIP ---
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
== END 2019-04-07 17:42 | disposition home or self-care (01) | DRG 917 ==
LOC: M ED 01:34 → M ED INP 05:29 → M PCU 06:20
PROVIDERS: ADMIT Internal Medicine Nephrology; ATTEND Internal Medicine Nephrology
DX: T42.8X1A Poisoning by antiparkinsonism drugs and other central muscle-tone depressants, accidental (unintentional), initial encounter (principal); G92 Toxic encephalopathy; E11.65 Type 2 diabetes mellitus with hyperglycemia; E66.01 Morbid (severe) obesity due to excess calories; N18.9 Chronic kidney disease, unspecified; F32.9 Major depressive disorder, single episode, unspecified; E86.0 Dehydration; R42 Dizziness and giddiness; I95.2 Hypotension due to drugs; K21.9 Gastro-esophageal reflux disease without esophagitis; M54.9 Dorsalgia, unspecified; Z79.4 Long term (current) use of insulin; Z79.891 Long term (current) use of opiate analgesic; Z79.899 Other long term (current) drug therapy; Z88.0 Allergy status to penicillin; Z88.1 Allergy status to other antibiotic agents; Z88.6 Allergy status to analgesic agent; Z88.8 Allergy status to other drugs, medicaments and biological substances; Y92.009 Unspecified place in unspecified non-institutional (private) residence as the place of occurrence of the external cause

== ENCOUNTER → 2019-04-19 | Outpatient (REF) | payer MEDICARE ==
[~2019-04-19] MED LIST changes: +CARDCAP3 PO; +D-101000 PO; -DOXY100T16 PO; +DOXY100T27 PO; +LOSA50TA88 PO; +POTA99TA10 PO; +RIZA10TA58 PO; +ROPI2TAB PO; +ROZE8TAB16 PO
== END ==
LOC: M LAB REF 12:33
PROVIDERS: ATTEND Physician Assistant Medical
DX: N61.1 Abscess of the breast and nipple (principal)

== ENCOUNTER 2019-06-12 12:31 | Emergency (ER) | payer MEDICARE ==
[~2019-06-12] VITALS: Ht 172.7 cm; Wt 109.4 kg
[~2019-06-12 12:31] MED LIST changes: +DOXY100T16 PO; -DOXY100T27 PO; -LOSA50TA88 PO; +RIZA10TA4 PO; -RIZA10TA58 PO
[2019-06-12] MEDS ORDERED: NITROGLYCERIN 0.4 MG SUBL TABLET SL PRN (13:15)
[2019-06-12 13:49] LABS: BASO # 0.1 10^3/uL (0.0-0.2); BASO % 0.5 % (0.0-1.0); EOS # 0.2 10^3/uL (0.0-0.5); EOS % 2.2 % (0.0-3.0); HEMATOCRIT 45.6 % (36.0-47.0); HEMOGLOBIN 15.2 g/dl (12.0-15.5); LYMPH # 2.7 10^3/uL (1.5-5.0); LYMPH % 26.5 % (24.0-44.0); MEAN CORPUSCULAR HEMOGLOBIN 29.2 pg (27.0-33.0); MEAN CORPUSCULAR HGB CONC 33.3 g/dl (32.0-36.5); MEAN CORPUSCULAR VOLUME 87.7 fl (80.0-96.0); MONO # 0.6 10^3/uL (0.0-0.8); MONO % 5.4 % (0.0-5.0); NEUTROPHILS # 6.7 10^3/uL (1.5-8.5); PLATELET COUNT, AUTOMATED 229 10^3/uL (150-450); WHITE BLOOD COUNT 10.2 10^3/uL (4.0-10.0)
--- NOTE | 2019-06-12 13:55 | REP ---
CHEST, TWO VIEWS: There is no evidence of acute infiltrate. No pleural effusion is seen. The heart is normal in size. The mediastinal silhouette is unremarkable. The visualized osseous structures are intact. IMPRESSION: No acute pulmonary disease. Electronically Signed by Len Ceron MD 06/12/2019 11:38 P
--- NOTE | 2019-06-12 13:55 | REP ---
CT BRAIN WITHOUT IV CONTRAST: CT brain performed without IV contrast. Comparison 06/09/2018. Ventricles are normal in size and position. There is no midline shift or mass effect. Ceron-white differentiation is well maintained. There is no acute intracranial hemorrhage or extra-axial fluid collection. Bone window examination is unremarkable. IMPRESSION: Negative noncontrast CT brain. Electronically Signed by Len Ceron MD 06/12/2019 11:38 P
[2019-06-12 14:02] LABS: INR 1.15; PROTHROMBIN TIME 14.4 SECONDS (11.8-14.0)
--- NOTE | 2019-06-12 14:16 | REP ---
Left lower extremity Duplex Doppler venous ultrasound: Real time compression and duplex Doppler interrogation of the left lower extremity deep venous system is performed. The left common femoral, superficial femoral and popliteal veins are fully compressible with transducer pressure and demonstrate normal spontaneous and phasic flow, without evidence of deep venous thrombosis. Impression: No evidence of deep venous thrombosis of the left lower extremity femoral popliteal venous system. Electronically Signed by Len Ceron MD 06/12/2019 02:08 P
[2019-06-12 14:19] LABS: ALBUMIN 3.8 GM/DL (3.2-5.2); ALT/SGPT 15 U/L (12-78); BILIRUBIN,DIRECT 0.1 MG/DL (0.0-0.2); BILIRUBIN,TOTAL 0.5 MG/DL (0.2-1.0); BLOOD UREA NITROGEN 11 MG/DL (7-18); CARBON DIOXIDE LEVEL 29 MEQ/L (21-32); CHLORIDE LEVEL 100 MEQ/L (98-107); CPK CREATINE PHOSPHOKINASE 40 U/L (26-192); CREATININE FOR GFR 0.78 MG/DL (0.55-1.30); FREE T4 1.08 NG/DL (0.76-1.46); GLOMERULAR FILTRATION RATE > 60.0 (>51); GLUCOSE, FASTING 190 MG/DL (70-100); LIPASE 62 U/L (73-393); POTASSIUM SERUM 3.9 MEQ/L (3.5-5.1); SODIUM LEVEL 137 MEQ/L (136-145); TOTAL PROTEIN 7.2 GM/DL (6.4-8.2); TROPONIN I < 0.02 NG/ML (< 0.10)
[2019-06-12 15:59] VITALS: BP 174/74
[2019-06-12] MEDS ORDERED: LOSARTAN 50 MG TAB PO ONE (16:00)
[2019-06-12] MEDS ORDERED: LOSA50TA88 PO (16:03)
[2019-06-12 16:15] VITALS: BP 155/97
--- NOTE | 2019-06-13 00:46 | ECGEPIP ---
[facility] - ED Test Date: 2019-06-12 Pat Name: ARTHUR CAPUTO Department: Room: - Gender: Female Rn Heart: TC : 1965 Requested By: ALICIA Garcia Order Number: [id number] Reading MD: Ehsan Benavidez Measurements Intervals [place] Rate: 65 P: 50 TX: 170 QRS: 12 QRSD: 78 T: 74 QT: 399 QTc: 418 Interpretive Statements SINUS RHYTHM POSSIBLE LEFT ATRIAL ENLARGEMENT ANTEROSEPTAL MYOCARDIAL INFARCTION, OF INDETERMINATE AGE Similar to tracing done 06-09-18 Electronically Signed on 06-13-2019 0:46:01 EDT by Ehsan Benavidez
== END 2019-06-12 16:24 | disposition home or self-care (01) ==
LOC: M ED 12:31
DX: I10 Essential (primary) hypertension (principal); M79.605 Pain in left leg; R94.31 Abnormal electrocardiogram [ECG] [EKG]; E11.9 Type 2 diabetes mellitus without complications; E07.9 Disorder of thyroid, unspecified; G47.30 Sleep apnea, unspecified; E78.9 Disorder of lipoprotein metabolism, unspecified; K21.9 Gastro-esophageal reflux disease without esophagitis; G90.50 Complex regional pain syndrome I, unspecified; F17.200 Nicotine dependence, unspecified, uncomplicated; Z79.891 Long term (current) use of opiate analgesic; Z79.899 Other long term (current) drug therapy; Z79.890 Hormone replacement therapy; Z79.4 Long term (current) use of insulin; Z86.69 Personal history of other diseases of the nervous system and sense organs; Z88.8 Allergy status to other drugs, medicaments and biological substances; Z88.0 Allergy status to penicillin; Z88.1 Allergy status to other antibiotic agents

== ENCOUNTER 2019-06-14 10:34 | Emergency (ER) | payer MEDICARE ==
[~2019-06-14] VITALS: Ht 172.7 cm; Wt 105.5 kg
[~2019-06-14 10:34] MED LIST changes: +LOSA50TA88 PO
--- NOTE | 2019-06-14 11:33 | REP ---
PORTABLE CHEST: AP portable view of the chest is performed and compared to a prior study of 06/12/2019. There is no acute infiltrate or pulmonary edema. Cardiac silhouette is mildly prominent and may be magnified. Mediastinal silhouette is unremarkable. IMPRESSION: No acute pulmonary disease. Electronically Signed by Len Ceron MD 06/14/2019 06:23 P
[2019-06-14 11:37] LABS: BASO # 0.1 10^3/uL (0.0-0.2); BASO % 0.7 % (0.0-1.0); EOS # 0.3 10^3/uL (0.0-0.5); HEMATOCRIT 46.7 % (36.0-47.0); HEMOGLOBIN 15.3 g/dl (12.0-15.5); LYMPH # 2.5 10^3/uL (1.5-5.0); LYMPH % 29.9 % (24.0-44.0); MEAN CORPUSCULAR HEMOGLOBIN 29.1 pg (27.0-33.0); MEAN CORPUSCULAR HGB CONC 32.8 g/dl (32.0-36.5); MEAN CORPUSCULAR VOLUME 88.8 fl (80.0-96.0); MONO # 0.7 10^3/uL (0.0-0.8); MONO % 8.1 % (0.0-5.0); NEUTROPHILS # 4.7 10^3/uL (1.5-8.5); NEUTROPHILS % 56.6 % (36.0-66.0); PLATELET COUNT, AUTOMATED 212 10^3/uL (150-450); RED BLOOD COUNT 5.26 10^6/uL (4.00-5.40); WHITE BLOOD COUNT 8.3 10^3/uL (4.0-10.0)
[2019-06-14 11:47] LABS: INR 1.04; PROTHROMBIN TIME 13.3 SECONDS (11.8-14.0)
--- NOTE | 2019-06-14 12:12 | ECGEPIP ---
[facility] - ED Test Date: 2019-06-14 Pat Name: ARTHUR CAPUTO Department: Room: - Gender: Female Cardiac Surgeon: : 1965 Requested By: Felicity Trammell Order Number: [id number] Reading MD: Felicity Trammell Measurements Intervals [place] Rate: 66 P: 53 MO: 173 QRS: 8 QRSD: 70 T: 78 QT: 408 QTc: 428 Interpretive Statements SINUS RHYTHM POSSIBLE LEFT ATRIAL ENLARGEMENT NONSPECIFIC T-WAVE ABNORMALITY POSSIBLE ANTEROSEPTAL INFARCT, OLD SIMILAR 06/12/19 Electronically Signed on 06-14-2019 12:12:34 EDT by Felicity Trammell
[2019-06-14 12:16] LABS: ALBUMIN 3.7 GM/DL (3.2-5.2); ALT/SGPT 15 U/L (12-78); BILIRUBIN,DIRECT 0.1 MG/DL (0.0-0.2); BILIRUBIN,TOTAL 0.6 MG/DL (0.2-1.0); BLOOD UREA NITROGEN 11 MG/DL (7-18); CALCIUM LEVEL 9.1 MG/DL (8.5-10.1); CARBON DIOXIDE LEVEL 33 MEQ/L (21-32); CHLORIDE LEVEL 98 MEQ/L (98-107); CK-MB VALUE MASS 2.2 NG/ML (<3.6); CPK CREATINE PHOSPHOKINASE 42 U/L (26-192); GLOMERULAR FILTRATION RATE > 60.0 (>51); GLUCOSE, FASTING 238 MG/DL (70-100); LIPASE 76 U/L (73-393); MB/CK RELATIVE INDEX 5.24 (< OR =4); NT-PRO BNP 47 PG/ML (<125); POTASSIUM SERUM 4.9 MEQ/L (3.5-5.1); SODIUM LEVEL 136 MEQ/L (136-145); TROPONIN I < 0.02 NG/ML (< 0.10)
[2019-06-14] MEDS ORDERED: ISOVUE-370 76% 100ML VIAL (Q9967) As Ordered ONE (14:02)
--- NOTE | 2019-06-14 15:05 | REP ---
CT pulmonary angiogram: With IV contrast. History: Chest pain. Comparison studies: Comparison chest x-ray is from earlier on this date. Comparison chest CT study is from April 25, 2007. Contrast dose: 75 mL of Isovue [address] technique: Helical scanning is acquired and overlapping 1.5 mm and contiguous 3 mm axial images are reformatted. In addition, maximum intensity projection and multiplanar re-formation images are generated in sagittal and coronal imaging projections. CT pulmonary angiographic findings: There is good opacification of the pulmonary arterial tree. No filling defect or vessel cutoff is seen to suggest pulmonary embolus. Maximal intensity projection images show no filling defect. The thoracic aorta enhances homogeneously. It is somewhat tortuous but there is no evidence of aneurysm or dissection. No pleural or pericardial effusion is seen. No hilar or mediastinal mass or adenopathy is observed. There is a cavitary nodule in the right upper lobe of the lung seen on page 27 of 104 in series 402 of today's study. This measures 9.5 mm in greatest diameter. It has a somewhat irregular margin. Adjacent to this, there is a peribronchovascular noncavitary pulmonary nodule 7 mm in diameter. No other pulmonary nodule is appreciated. No endobronchial lesion is seen. Incidental note is made of an accessory reynaldo azygos vein at the level of the great vessels in the mediastinum emptying into the brachiocephalic vein. Study is otherwise unremarkable. Impression: 1. No CT evidence of pulmonary embolus. 2. There are two pulmonary nodules in the right upper lobe adjacent to one another. One of these, is a 9.5 mm cavitary nodule. These are of uncertain significance. Neoplastic versus inflammatory etiology. 3. 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 Electronically Signed by Renaldo Edmondson MD 06/14/2019 03:53 P
[2019-06-14] MEDS ORDERED: MORPHINE 30 MG SA TAB As Ordered ONE (16:43)
[2019-06-14] MEDS ORDERED: MORPHINE 30 MG SA TAB PO ONE (16:45)
[2019-06-14] MEDS ORDERED: PERCOCET 5MG/325MG TAB PO ONE (16:45)
[2019-06-14 17:17] LABS: CK-MB VALUE MASS 1.7 NG/ML (<3.6); CPK CREATINE PHOSPHOKINASE 40 U/L (26-192); MB/CK RELATIVE INDEX 4.25 (< OR =4); TROPONIN I < 0.02 NG/ML (< 0.10)
[2019-06-14 17:43] VITALS: BP 157/85
--- NOTE | 2019-06-16 08:03 | ED PDOC ---
Post-Departure Follow-Up dr miller faxed formal report of cta chest for fu Jacinto Campoverde MD Jun 16, 2019 08:03
== END 2019-06-14 18:18 | disposition home or self-care (01) ==
LOC: EDBD 10:34 → M ED 10:34
DX: R07.9 Chest pain, unspecified (principal); R91.1 Solitary pulmonary nodule; R94.31 Abnormal electrocardiogram [ECG] [EKG]; E11.9 Type 2 diabetes mellitus without complications; I12.9 Hypertensive chronic kidney disease with stage 1 through stage 4 chronic kidney disease, or unspecified chronic kidney disease; N18.9 Chronic kidney disease, unspecified; M54.9 Dorsalgia, unspecified; G89.29 Other chronic pain; G90.50 Complex regional pain syndrome I, unspecified; Z95.5 Presence of coronary angioplasty implant and graft; Z98.890 Other specified postprocedural states; Z88.8 Allergy status to other drugs, medicaments and biological substances; Z79.891 Long term (current) use of opiate analgesic; Z79.899 Other long term (current) drug therapy; Z79.890 Hormone replacement therapy; Z79.4 Long term (current) use of insulin
CPT/HCPCS: 36415; 71045; 71275; 80048; 80076; 82550; 82553; 83690; 84443; 84484; 85025; 85379; 85610; 93005; 93041; 94760; 99285; Q9967

== ENCOUNTER → 2019-07-14 | Outpatient (REF) | payer MEDICARE ==
[~2019-07-14] MED LIST changes: -DOXY100T16 PO; +DOXY100T27 PO; -RIZA10TA4 PO; +RIZA10TA58 PO
== END ==
LOC: M LAB REF 07:45
PROVIDERS: ATTEND Nurse Practitioner Family
DX: R19.7 Diarrhea, unspecified (principal)

== ENCOUNTER 2019-08-31 17:08 | Emergency (ER) | payer MEDICARE ==
[2019-08-31 17:20] VITALS: BP 162/76
--- NOTE | 2019-08-31 18:57 | REP ---
LEFT KNEE SERIES: Five views of the left knee were performed. No acute fracture or dislocation is seen. There is moderate medial joint space narrowing with subchondral sclerosis and moderate diffuse spurring. There is mild lateral patellar femoral compartment narrowing. There is not a significant joint effusion. IMPRESSION: Moderate degenerative changes without fracture or dislocation. Electronically Signed by Len Ceron MD 08/31/2019 07:03 P
--- NOTE | 2019-08-31 18:59 | REP ---
LEFT RIB SERIES: Four views of the left ribs are performed. No fracture or bone lesion is seen. An accompanying view of the chest demonstrates no acute infiltrate, pneumothorax or pleural effusion. Cardiomediastinal silhouette is unremarkable. IMPRESSION: No evidence of left rib fracture. Electronically Signed by Len Ceron MD 08/31/2019 07:03 P
== END 2019-08-31 18:37 | disposition left against medical advice (07) ==
LOC: EDBD 17:08 → M ED 17:08
DX: M25.562 Pain in left knee (principal); M17.12 Unilateral primary osteoarthritis, left knee; Z53.21 Procedure and treatment not carried out due to patient leaving prior to being seen by health care provider; Z79.4 Long term (current) use of insulin; Z79.899 Other long term (current) drug therapy; Z88.8 Allergy status to other drugs, medicaments and biological substances; Z88.0 Allergy status to penicillin; Z88.1 Allergy status to other antibiotic agents

== ENCOUNTER → 2019-09-14 | Outpatient (CLI) | payer MEDICARE ==
--- NOTE | 2019-09-15 04:42 | REP ---
Clinical: Follow up abnormal lung findings. Technique: Axial noncontrast images from the thoracic inlet to the upper abdomen with coronal and sagittal re-formations. Comparison: 06/14/2019. Findings: The 9 mm cavitary nodule and adjacent 7 mm solid nodule in the right upper lobe (image 23) are essentially unchanged from prior examination and represent relatively new findings as compared to chest CT dated 2006. No further nodule or mass lesion is appreciated. Acute lingular atelectasis and small left pleural effusion noted. No further consolidation. No pneumothorax. Tracheobronchial tree is patent. No significant adenopathy. Mediastinum demonstrates normal thoracic aorta, pulmonary vasculature and heart/pericardium. Impression: 1. The two nodules in the right upper lobe remains stable compared to 06/14/2019. Consider 6-9 month initial followup examination. 2. Moderate lingular atelectasis and small left pleural effusion Electronically Signed by Wm Ovalle MD 09/15/2019 04:33 A
== END ==
LOC: M RAD 15:48
PROVIDERS: ATTEND Internal Medicine Pulmonary Disease
DX: R91.8 Other nonspecific abnormal finding of lung field (principal); J90 Pleural effusion, not elsewhere classified; J98.11 Atelectasis

== ENCOUNTER → 2019-10-03 | Outpatient (REF) | payer MEDICARE ==
[2019-10-03 14:03] LABS: INFLUENZA A AMPLIFICATION NEGATIVE (NEGATIVE); INFLUENZA B AMPLIFICATION NEGATIVE (NEGATIVE)
== END ==
LOC: M LAB REF 12:12
PROVIDERS: ATTEND Physician Assistant Medical
DX: J11.1 Influenza due to unidentified influenza virus with other respiratory manifestations (principal); R50.9 Fever, unspecified

== ENCOUNTER → 2019-10-05 | Outpatient (REF) | payer MEDICARE | LOC: M LAB REF 12:47 | PROVIDERS: ATTEND Registered Nurse | DX: R50.9 Fever, unspecified (principal); R05 Cough ==

== ENCOUNTER → 2019-12-28 | Outpatient (CLI) | payer MEDICARE ==
[~2019-12-28] MED LIST changes: -ROPI1TAB PO; +ROPI1TAB3 PO; -ROPI2TAB PO; +ROPI2TAB3 PO
[2019-12-28 10:08] LABS: PLATELET COUNT, AUTOMATED 245 10^3/uL (150-450); RED BLOOD COUNT 6.35 10^6/uL (4.00-5.40)
[2019-12-28 10:09] LABS: WHITE BLOOD COUNT 11.2 10^3/uL (4.0-10.0)
[2019-12-28 10:10] LABS: HEMATOCRIT 55.6 % (36.0-47.0); HEMOGLOBIN 18.3 g/dl (12.0-15.5); MEAN CORPUSCULAR HEMOGLOBIN 28.8 pg (27.0-33.0); MEAN CORPUSCULAR HGB CONC 32.9 g/dl (32.0-36.5); MEAN CORPUSCULAR VOLUME 87.6 fl (80.0-96.0)
[2019-12-28 11:03] LABS: HEMOGLOBIN A1c 13.5 %
[2019-12-28 11:07] LABS: ALBUMIN 3.9 GM/DL (3.2-5.2); ALT/SGPT 15 U/L (12-78); BILIRUBIN,TOTAL 0.5 MG/DL (0.2-1.0); BLOOD UREA NITROGEN 13 MG/DL (7-18); CALCIUM LEVEL 9.2 MG/DL (8.5-10.1); CARBON DIOXIDE LEVEL 29 MEQ/L (21-32); CHLORIDE LEVEL 93 MEQ/L (98-107); CHOLESTEROL LEVEL 232 MG/DL (<200); CREATININE FOR GFR 0.97 MG/DL (0.55-1.30); FREE T4 1.15 NG/DL (0.76-1.46); GLOMERULAR FILTRATION RATE > 60.0 (>51); GLUCOSE, FASTING 591 MG/DL (70-100); HDL CHOLESTEROL 33 MG/DL (>40); LDL CHOLESTEROL 128 MG/DL (<100); NON-HDL-C 199 MG/DL; POTASSIUM SERUM 4.5 MEQ/L (3.5-5.1); SODIUM LEVEL 130 MEQ/L (136-145); TOTAL PROTEIN 7.6 GM/DL (6.4-8.2); TRIGLYCERIDES LEVEL 354 MG/DL (<150)
== END ==
LOC: M LAB 09:16
PROVIDERS: ATTEND Dermatology
DX: Z51.81 Encounter for therapeutic drug level monitoring (principal); Z79.899 Other long term (current) drug therapy

== ENCOUNTER → 2020-01-24 | Outpatient (REF) | payer MEDICARE ==
[2020-01-24 14:16] LABS: APPEARANCE, URINE CLOUDY (CLEAR); BACTERIA, URINE AUTO 2+ (NEGATIVE); BILIRUBIN, URINE AUTO NEGATIVE (NEGATIVE); BLOOD, URINE BLOOD NEGATIVE (NEGATIVE); COLOR, URINE YELLOW (YELLOW); GLUCOSE, URINE (UA) AUTO 3+ mg/dL (NEGATIVE); KETONE, URINE AUTO NEGATIVE (NEGATIVE); LEUKOCYTE ESTERASE, URINE AUTO TRACE (NEGATIVE); NITRITE, URINE AUTO NEGATIVE (NEGATIVE); PROTEIN, URINE AUTO NEGATIVE (NEGATIVE); RBC, URINE AUTO 1 /HPF (0-3); SPECIFIC GRAVITY URINE AUTO 1.011 (1.002-1.035); SQUAMOUS EPITHELIAL CELL UR AU 5 /HPF (0-6); UROBILINOGEN, URINE AUTO 0.2 mg/dL (0.0-2.0); WBC, URINE AUTO 13 /HPF (0-3)
== END ==
LOC: M LAB REF 13:27
PROVIDERS: ATTEND Physician Assistant
DX: N39.0 Urinary tract infection, site not specified (principal)

== ENCOUNTER → 2020-02-02 | Outpatient (CLI) | payer MEDICARE | LOC: M LAB 08:51 | PROVIDERS: ATTEND Dermatology | DX: Z79.899 Other long term (current) drug therapy (principal) ==

== ENCOUNTER → 2020-05-17 | Outpatient (CLI) | payer MEDICARE ==
[~2020-05-17] MED LIST changes: -PANT20TA2 PO; +PANT20TA6 PO
--- NOTE | 2020-05-17 09:05 | REPVR ---
PROCEDURE INFORMATION: Exam: XR Right Shoulder Exam date and time: 05/17/2020 8:51 AM Age: 54 years old Clinical indication: Pain; Shoulder; Right; Additional info: Right shoulder pain TECHNIQUE: Imaging protocol: XR Right shoulder. Views: 2 or more views. COMPARISON: No relevant prior studies available. FINDINGS: Bones/joints: No acute fracture or dislocation is identified. There is mild acromioclavicular and glenohumeral arthrosis. Mild productive change is present along the greater tuberosity. Mild degenerative cystic changes are present along the greater tuberosity. Soft tissues: There is small calcification in the soft tissues adjacent to the greater tuberosity, suggesting calcific rotator cuff tendinopathy. IMPRESSION: Degenerative changes as described. Electronically signed by: Дмитрий Mora On 05/17/2020 09:04:58 AM
== END ==
LOC: M LAB 07:57 → M RAD 07:57
PROVIDERS: ATTEND Physician Assistant Medical
DX: M25.511 Pain in right shoulder (principal)

== ENCOUNTER → 2020-05-23 | Outpatient (CLI) | payer MEDICARE ==
--- NOTE | 2020-06-06 11:03 | REP ---
CHEST X-RAY: 3-VIEWS HISTORY: Acute bronchitis and contact exposure. COMPARISON: 08/31/2019. FINDINGS: The lungs are symmetrically aerated. No infiltrate is seen. Heart is not enlarged. Pleural angles are sharp. Pulmonary vasculature is not increased. There are mild degenerative changes in the thoracic spine. There are healing rib fractures on the left involving the anterolateral sixth and seventh ribs. No other significant bony abnormality is seen. IMPRESSION: No active cardiopulmonary disease. Healing rib fractures on the left. MTDD
== END ==
LOC: M WUC 15:18
PROVIDERS: ATTEND Physician Assistant
DX: J20.9 Acute bronchitis, unspecified (principal); Z20.828 Contact with and (suspected) exposure to other viral communicable diseases

== ENCOUNTER → 2020-06-10 | Outpatient (CLI) | payer MEDICARE ==
--- NOTE | 2020-06-17 17:29 | REP ---
CT CHEST WITHOUT CONTRAST HISTORY: Other nonspecific abnormal finding of lung field. COMPARISON: Chest CT study 09/14/2019 and 06/14/2019. CT FINDINGS: Preliminary digital treasurer radiograph is unremarkable. The accessory hemiazygos vein is again noted unchanged. A posteriorly positioned gastric diverticulum is noted incidentally in the left upper quadrant of the abdomen. These are normal variants. Normal adrenal glands are seen. There is no evidence of hilar or mediastinal mass or adenopathy. No pleural effusion is seen. There is persistent lingular atelectatic change. The recently identified small left pleural effusion has resolved. There are healed fractures of the left anterolateral sixth and seventh ribs. Two nodules persist in the right upper lobe. The larger of these is a cavitary nodule with a 1-2 mm thick wall. The nodule measures 9.4 mm and is unchanged in the interval since the 06/14/2019 study. Adjacent to this, there is a solid 5-mm pulmonary nodule adjacent to a pulmonary venous structure. This is also unchanged in the interval since the 06/14/2019 study. Exam is otherwise unremarkable. IMPRESSION: The two adjacent right apical pulmonary nodules are unchanged in the interval since the 06/14/2019 study, one year stability. The larger of these is a cavitary nodule measuring 9.4 mm. There are two healed rib fractures on the left and there is some residual atelectatic change and/or fibrosis in the lingula. Previously noted left effusion has resolved. Continued follow-up for the pulmonary nodule suggested. MTDD
== END ==
LOC: M RAD 07:52
PROVIDERS: ATTEND Internal Medicine Pulmonary Disease
DX: R91.8 Other nonspecific abnormal finding of lung field (principal)

== ENCOUNTER 2020-07-23 12:46 | Observation (INO) | payer MEDICARE ==
[~2020-07-23] VITALS: Ht 162.6 cm; Wt 108.8 kg
[2020-07-23] MEDS ORDERED: NS 1,000 ML IV SCH (14:11)
[2020-07-23] MEDS ORDERED: METOCLOPRAMIDE INJ 10MG/2ML VIAL (J2765 PER 1) IV ONE (14:15)
[2020-07-23] MEDS ORDERED: NALOXONE 2MG/2ML SYRINGE (J2310 PER 1MG) IV STA (14:19)
[2020-07-23 14:41] LABS: BASO # 0.1 10^3/uL (0.0-0.2); BASO % 0.5 % (0.0-1.0); EOS # 0.3 10^3/uL (0.0-0.5); EOS % 2.5 % (0.0-3.0); HEMATOCRIT 47.6 % (36.0-47.0); HEMOGLOBIN 15.4 g/dl (12.0-15.5); LYMPH # 3.4 10^3/uL (1.5-5.0); LYMPH % 32.7 % (24.0-44.0); MEAN CORPUSCULAR HEMOGLOBIN 28.4 pg (27.0-33.0); MEAN CORPUSCULAR HGB CONC 32.4 g/dl (32.0-36.5); MEAN CORPUSCULAR VOLUME 87.8 fl (80.0-96.0); MONO # 0.6 10^3/uL (0.0-0.8); MONO % 5.9 % (0.0-5.0); NEUTROPHILS % 58.1 % (36.0-66.0); PLATELET COUNT, AUTOMATED 179 10^3/uL (150-450); RED BLOOD COUNT 5.42 10^6/uL (4.00-5.40); WHITE BLOOD COUNT 10.2 10^3/uL (4.0-10.0)
--- NOTE | 2020-07-23 14:48 | REPVR ---
PROCEDURE INFORMATION: Exam: CT Head Without Contrast Exam date and time: 07/23/2020 2:30 PM Age: 54 years old Clinical indication: Altered mental status/memory loss TECHNIQUE: Imaging protocol: Computed tomography of the head without contrast. Radiation optimization: All CT scans at this facility use at least one of these dose optimization techniques: automated exposure control; mA and/or kV adjustment per patient size (includes targeted exams where dose is matched to clinical indication); or iterative reconstruction. COMPARISON: CT Head without contrast 06/12/2019 1:09 PM FINDINGS: Brain: No hemorrhage. Unremarkable white matter for the patient's age. No mass effect. No evolving territorial infarct. Cerebral ventricles: No ventriculomegaly. Bones/joints: Unremarkable. No acute fracture. Paranasal sinuses: Visualized sinuses are unremarkable. No fluid levels. Mastoid air cells: Visualized mastoid air cells are well aerated. Soft tissues: Unremarkable. IMPRESSION: No acute intracranial abnormality seen. Electronically signed by: Glendy Neri On 07/23/2020 14:48:19 PM
[2020-07-23 15:05] LABS: AMPHETAMINES LEVEL URINE NEGATIVE (NEGATIVE); BARBITURATES URINE NEGATIVE (NEGATIVE); BENZODIAZEPINES URINE POSITIVE (NEGATIVE); CANNABINOIDS URINE NEGATIVE (NEGATIVE); COCAINE METABOLITE URINE NEGATIVE (NEGATIVE); METHADONE URINE NEGATIVE (NEGATIVE); OPIATES URINE POSITIVE (NEGATIVE); PHENCYCLIDINE URINE NEGATIVE (NEGATIVE)
[2020-07-23 15:20] LABS: ACETAMINOPHEN LEVEL < 2.0 UG/ML (10.0-30.0); ALBUMIN 3.4 GM/DL (3.2-5.2); ALT/SGPT 12 U/L (12-78); BILIRUBIN,DIRECT < 0.1 MG/DL (0.0-0.2); BILIRUBIN,TOTAL 0.3 MG/DL (0.2-1.0); BLOOD UREA NITROGEN 14 MG/DL (7-18); CALCIUM LEVEL 8.6 MG/DL (8.5-10.1); CARBON DIOXIDE LEVEL 34 MEQ/L (21-32); CHLORIDE LEVEL 98 MEQ/L (98-107); CK-MB VALUE MASS 1.6 NG/ML (<3.6); CPK CREATINE PHOSPHOKINASE 38 U/L (26-192); CREATININE FOR GFR 0.77 MG/DL (0.55-1.30); ETHYL ALCOHOL (ETHANOL) < 0.003 % (0.000-0.010); GLOMERULAR FILTRATION RATE > 60.0 (>51); GLUCOSE, FASTING 414 MG/DL (70-100); MB/CK RELATIVE INDEX 4.21 (< OR =4); POTASSIUM SERUM 4.2 MEQ/L (3.5-5.1); SALICYLATE LEVEL 2.1 MG/DL (5.0-30.0); SODIUM LEVEL 135 MEQ/L (136-145); TOTAL PROTEIN 6.5 GM/DL (6.4-8.2); TROPONIN I < 0.02 NG/ML (< 0.10)
--- NOTE | 2020-07-23 15:25 | REP ---
INDICATION: Altered Mental Status. COMPARISON: 05/23/2020. TECHNIQUE: SINGLE PORTABLE AP VIEW OF THE CHEST WAS PERFORMED. FINDINGS: I suspect mild cardiomegaly with left ventricular prominence. There appears to be mild linear fibro atelectasis in the left lung base. There is mild patchy atelectasis or infiltrate in the right lung base. The mediastinal silhouette is otherwise unremarkable. IMPRESSION: Mild patchy right base atelectasis/infiltrate. <Electronically signed by Len Ceron > 07/23/20 1523
--- NOTE | 2020-07-23 15:44 | HPEPDOC ---
[facility] Medical History & Physical Date of Admission Jul 23, 2020 Date of Service: Jul 23, 2020 Attending Physician: Rosetta Novak MD History and Physical CHIEF COMPLAINT: Altered mental status HISTORY OF PRESENT ILLNESS: Patient is a 54 y/o F with PMH of chronic back pain, depression with hx of suicide attempt, IDDM, CKD, morbid obesity, RDS who presented to [facility] ER with chief complaint by family for worsening altered mental status over the past several days. Per family the patient was increasingly somnolent, increasingly tired, unmotivated past several days. At her baseline the patient is not like this. The patient takes baclofen, diazepam, Percocet and other drugs at home so there was a concern about her potentially taking more than normal. She had an admission in 2019 for medication overdose of baclofen which was later thought to be suicide attempt. She was brought to the ER for further evaluation Emergency room CT of the head was negative. The CBC mildly elevated at 10.2 chest x-ray could not rule out infiltrate versus atelectasis in the right lung base. Her in tox was positive for opiates and benzos she was given Narcan which did not improve her mental status. She was given IV fluids and over time improved slowly. Signs remained stable. On my evaluation of her the patient was still very lethargic, falling asleep while discussing what happened with me. She was able to answer; question but was overall not a reliable historian due to her increased tiredness. I her to our meeting ending, the patient states before she was brought to the hospital she remembers taking 50 of Benadryl and diazepam together. She takes Benadryl 50 mg twice a day before she administers her insulins due to an insulin allergy. She states she could take 25 mg twice a day but does not. For her to take Benadryl and diazepam together isn't something that not unusual for her she says. The patient was admitted for likely toxic encephalopathy 2/2 to multiple medications usage. She denied chest pain, shortness of breath, fevers, chills, n/v/d. REVIEW OF SYSTEMS: Unable to obtain outside of those mentioned above 2/2 to encephalopathy, falling asleep during evaluation. PAST MEDICAL HISTORY: IDDM. Morbid obesity. CKD Depression. RDS. dizziness. Chronic back pain. Herniated disks Lung nodule hx of suicide attempt with baclofen in 2019 PAST SURGICAL HISTORY: Unknown SOCIAL HISTORY: Hx of smoking 20 years, quit 2006. Denies illicit drug use, alcohol use. Lives with her family locally. Follows with PCP, pulmonology as o/p. Full code. FAMILY HISTORY: mother- Stage II Breast cancer. at 71 y/o. Father- HTN, DM type II. at 73 y/o ALLERGIES: Many allergies. Please see below. HOME MEDICATIONS: Please see below. PHYSICAL EXAMINATION: VS: Please see below CONSTITUTIONAL: Lethargic, no acute distress, resting comfortably, AAO x 2 (baseline is AAOx3) EYES: PERRLA, EOM intact HENT, MOUTH: Normocephalic, atraumatic, moist mucous membranes NECK: SUPPLE, no JVD, no lymphadenopathy, no carotid bruit CV: Regular rate and rhythm, S1S2 normal, no murmurs/rubs/gallops RESPIRATORY: Clear to auscultation bilaterally, no rales/rhonchi/wheezes GI: obese abdomen, BS positive in 4 quadrants, soft, nontender, nondistended, no rebound or guarding, no organomegaly : Deferred MUSCULOSKELETAL: Normal ROM. No cyanosis, clubbing, swelling, joint deformity, extremity edema INTEGUMENTARY: Intact, no rashes, no lesions, no erythema NEUROLOGIC: Cranial Nerves II-XII are intact, no focal deficits LABORATORY DATA: Please see below IMAGING: CT head: No acute findings CXR: Mild patchy right base atelectasis/infiltrate. ASSESSMENT: 54 y/o F with PMH of chronic back pain, depression with hx of suicide attempt, IDDM, CKD, morbid obesity, RDS admitted for acute toxic encephalopathy likely 2/2 to multiple medications. PLAN: #Toxic encephalopathy 2/2 to drug combinations -S/p using benadryl and diazepam prior to coming to hospital. -Hx of suicide attempt with baclofen overdose 2019, patient denies suicide attempt today -UDS: opiates, benzo. -Not suspecting infectious pneumonia as could not be ruled out on CXR -Hold all home meds: diazepam, baclofen, percocet, rizatriptan, tizanidine. Pharmacy is confirming she is actually filling these meds currently -C/w IVFs overnight, monitor mental status #Uncontrolled DM type II -Allergy to insulins, takes benadryl before administration. -BS 414, no ketones in urine, AG low -C/w home regimen, IVFs, FS AC/HS # HTN. -BP ok initially in ER, one reading >170 -C/w home medications if needed can add hydralazine PRN # Depression/anxiety/panic attacks -Patient currently denies SI/HI -C/w home meds when confirmed by pharmacy #DVT px -Enoxaparin DISPOSITION: Admitted as observation patient. When mental status is baseline, consider PT/OT and discharge home. Vital Signs Vital Signs Date Time Temp Pulse Resp B/P (MAP) Pulse Ox O2 Delivery O2 Flow Rate FiO2 07/23/20 13:24 97.5 07/23/20 13:05 73 18 121/67 94 Room Air Laboratory Data Labs 24H Laboratory Tests 2 07/23/20 14:24: Bedside Glucose (Misc Panel) 410H 07/23/20 14:25: Urine Color STRAW, Urine Appearance CLEAR, Urine pH 6.0, Urine Specific [place] 1.022, Urine Protein NEGATIVE, Urine Glucose (UA) 3+H, Urine Ketones NEGATIVE, Urine Blood NEGATIVE, Urine Nitrite NEGATIVE, Urine Bilirubin NEGATIVE, Urine Urobilinogen 0.2, Urine Leukocyte Esterase NEGATIVE, Urine WBC (Auto) 1, Urine R BC (Auto) 1, Urine Hyaline Casts (Auto) 0, Urine Bacteria (Auto) NEGATIVE, Urine Squamous Epithelial Cells 1, Urine Mucus (Auto) SMALL, Urine Sperm (Auto) , Urine Opiates Screen POSITIVEH, Urine Methadone Screen NEGATIVE, Urine Barbiturates Screen NEGATIVE, Urine Phencyclidine Screen NEGATIVE, Urine Amphetamines Screen NEGATIVE, Urine Benzodiazepines Screen POSITIVEH, Urine Cocaine Metabolite Screen NEGATIVE, Urine Cannabinoids Screen NEGATIVE 07/23/20 14:29: Immature Granulocyte % (Auto) 0.3, Neutrophils (%) (Auto) 58.1, Lymphocytes (%) (Auto) 32.7, Monocytes (%) (Auto) 5.9H, Eosinophils (%) (Auto) 2.5, Basophils (%) (Auto) 0.5, Neutrophils # (Auto) 6.0, Lymphocytes # (Auto) 3.4, Monocytes # (Auto) 0.6, Eosinophils # (Auto) 0.3, Basophils # (Auto) 0.1, Nucleated Red Blood Cells % (auto) 0.0, Anion Gap 3L, Glomerular Filtration Rate > 60.0, Calcium Level 8.6, Total Bilirubin 0.3, Direct Bilirubin < 0.1, Aspartate Amino Transf (AST/SGOT) 11, Alanine Aminotransferase (ALT/SGPT) 12, Alkaline Phosphatase 97, Ammonia 11, Total Creatine Kinase 38, Creatine Kinase MB 1.6, Creatine Kinase MB Relative Index 4.21H, Troponin I < 0.02, Total Protein 6.5, Albumin 3.4, Albumin/Globulin Ratio 1.1L, Thyroid Stimulating Hormone (TSH) 1.160, Salicylates Level 2.1L, Acetaminophen Level < 2.0L, Ethyl Alcohol Level < 0.003 CBC/BMP Laboratory Tests 07/23/20 14:29 Home Medications Scheduled Baclofen (Baclofen) 20 Mg Tab, 20 MG PO TID Baclofen (Baclofen) 20 Mg Tablet, 40 MG PO QHS Cholecalciferol (Vitamin D3) (Vitamin D3) 1,000 Unit Capsule, 1,000 UNIT PO DAILY Diazepam (Diazepam) 2 Mg Tab, 2 MG PO QHS SEE COMMENTS TAKES WITH 5MG TABLET QHS FOR TOTAL OF 7MG Diphenhydramine HCl (Benadryl) 25 Mg Cap, 50 MG PO BID Duloxetine HCl (Cymbalta) 20 Mg Cap, 30 MG PO DAILY Furosemide (Furosemide) 20 Mg Tab, 20 MG PO DAILY Insulin Human NPH (Novolin N) 1 Ml Susp, 68 UNITS SQ BID SEE ALLERGY NOTE Levothyroxine Sodium (Levothyroxine Sodium) 50 Mcg Tab, 50 MCG PO DAILY Losartan Potassium (Losartan Potassium) 50 Mg Tablet, 1 TAB PO DAILY Metoprolol Tartrate (Lopressor) 50 Mg Tab, 50 MG PO DAILY Morphine Sulfate (Morphine Sulfate ER) 30 Mg Tabcr, 30 MG PO BID Oxycodone HCl/Acetaminophen (Percocet 10-325 mg Tablet) 1 Tab Tab, 1 TAB PO BID Pantoprazole Sodium (Pantoprazole Sodium) 20 Mg Tab, 20 MG PO BID Ramelteon (Rozerem) 8 Mg Tablet, 8 MG PO QHS Rizatriptan Benzoate (Rizatriptan) 10 Mg Tab.rapdis, 10 MG PO ASDIRECTED Ropinirole HCl (Ropinirole HCl) 2 Mg Tablet, 2 MG PO BID Tizanidine HCl (Tizanidine HCl) 4 Mg Cap, 4 MG PO TID Scheduled PRN Albuterol Sulfate (Ventolin Hfa) 108 Mcg/Act Aer, 2 PUFFS INH Q4H PRN for SOB/WHEEZING Diazepam (Diazepam) 5 Mg Tab, 5 MG PO DAILY PRN for ANXIETY SEE COMMENTS Nystatin (Nystatin Powder) 100,000 Unit/Gm Pow, 1 DOSE TOP QHS PRN for RASH/ITCHING Promethazine HCl (Promethazine HCl) 12.5 Mg Tab, 12.5 MG PO Q6H PRN for NAUSEA Allergies Coded Allergies: metoclopramide (Verified Allergy, Severe, anaphylaxis, 03/04/19) ondansetron (Verified Allergy, Severe, hive/anaphylaxis, 03/04/19) prochlorperazine (Verified Allergy, Severe, anaphylaxis, 03/04/19) Insulins (Verified Allergy, Intermediate, hives - CAN TAKE NOVOLIN N ONLY, 03/04/19) aspirin (Verified Allergy, Intermediate, hives, 03/04/19) ciprofloxacin (Verified Allergy, Intermediate, hives, 03/04/19) clonidine (Verified Allergy, Intermediate, rash, 03/04/19) naproxen (Verified Allergy, Intermediate, rash, 03/04/19) sucralfate (Verified Allergy, Intermediate, hives, 03/04/19) ketamine (Verified Adverse Reaction, Severe, "can't move legs", 03/04/19) amoxicillin (Verified Adverse Reaction, Mild, stomach cramps, 03/04/19) clavulanic acid (Verified Adverse Reaction, Mild, stomach cramps, 03/04/19) guaifenesin (Verified Adverse Reaction, Mild, insomnia, 03/04/19) A-FIB/CHADSVASC A-FIB History Current/History of A-Fib/PAF?: No Current PO Anticoag Therapy: No Age/Risk Factor Scoring CHADSVASC: CHADSVASC Response (Comments) Value Age Risk Factor Age < 65 years old 0 Gender Risk Factor Female 1 Hx of CHF No 0 Hx of HTN Yes 1 Hx of Stroke/TIA/or VTE No 0 Hx of Diabetes Yes 1 Hx of Vascular Disease No 0 Total 3 Treatment Treatment ordered: Other Other anticoagulant ordered: enoxaparin Rosetta Novak MD Jul 23, 2020 15:44
[2020-07-23] MEDS ORDERED: ACETAMINOPHEN TAB 650MG DOSE (2X325MG) PO PRN (15:45)
[2020-07-23] MEDS: NS 1,000 ML IV SCH ×2 (15:55→21:47)
[2020-07-23 16:21] LABS: ABG BASE EXCESS 2.8 (-2.0-2.0); ABG HCO3 28.5 MEQ/L (22.0-26.0); ABG O2 SATURATION 88.4 % (95.0-99.0); ABG PARTIAL PRESSURE CO2 46.9 mmHg (35.0-45.0); ABG PARTIAL PRESSURE O2 50.9 mmHg (75.0-100.0); ABG STANDARD HCO3 26.7 MEQ/L (22.0-26.0); ABG TOTAL CO2 29.9 MEQ/L (22.0-29.0); ABG pH (ARTERIAL) 7.401 UNITS (7.350-7.450)
[2020-07-23] MEDS ORDERED: FLINCHW11 PO (16:23)
[2020-07-23] MEDS ORDERED: CLIN1GEL22 TOP (16:23)
[2020-07-23] MEDS ORDERED: ATOR1TAB19 PO (16:23)
[2020-07-23] MEDS ORDERED: CLOP75TA2 PO (16:23)
[2020-07-23] MEDS ORDERED: PANT40TA29 PO (16:23)
[2020-07-23] MEDS ORDERED: TIZA4TAB4 PO (16:23)
[2020-07-23] MEDS ORDERED: DULO1CAP5 PO (16:23)
[2020-07-23] MEDS ORDERED: LOSA100T50 PO (16:23)
[2020-07-23] MEDS ORDERED: SYST1SOL4 OU (16:23)
[2020-07-23] MEDS ORDERED: CALC500T68 PO (16:23)
[2020-07-23] MEDS ORDERED: LYRI150C PO (16:23)
[2020-07-23] MEDS ORDERED: LEVO75TA4 PO (16:23)
[2020-07-23] MEDS ORDERED: ALBUTEROL 90 MCG/ACT 8GM HFA INHALER INH PRN (16:30)
[2020-07-23] MEDS ORDERED: diphenhydrAMINE 25MG CAP PO PRN (16:30)
[2020-07-23 18:19] VITALS: BP_SYST 136; BP_SYST 152; BP_DIAS 101; BP_DIAS 72
[2020-07-23] MEDS: PANTOPRAZOLE 40MG TAB (PROTONIX) PO SCH (20:04)
[2020-07-23] MEDS: METOPROLOL TART 50 MG TAB PO SCH (20:04)
[2020-07-23] MEDS: rOPINIRole 1MG TAB PO SCH (20:04)
[2020-07-23] MEDS ORDERED: NOVOLIN N SC SCH (21:00)
[2020-07-23] MEDS ORDERED: HumuLIN N INSULIN (NovoLIN N) PER UNIT SQ SCH (21:00)
--- NOTE | 2020-07-23 21:17 | ECGEPIP ---
[facility] - ED Test Date: 2020-07-23 Pat Name: ARTHUR CAPUTO Department: Room: [place] [address] Gender: Female Road Marker: jabier : 1965 Requested By: NYLA ADEN Order Number: [id number] Reading MD: Ehsan Benavidez Measurements Intervals [place] Rate: 63 P: 47 DE: 187 QRS: 11 QRSD: 76 T: 78 QT: 405 QTc: 417 Interpretive Statements SINUS RHYTHM WITH SINUS ARRHYTHMIA POSSIBLE LEFT ATRIAL ENLARGEMENT LOW QRS VOLTAGE IN PRECORDIAL LEADS SEPTAL MYOCARDIAL INFARCTION, PROBABLY OLD Similar to tracing done 06-14-19 Electronically Signed on 07-23-2020 21:17:26 EST by Ehsan Benavidez
[2020-07-23 22:00] VITALS: BP 162/90
[2020-07-24 06:00] VITALS: BP 158/82
[2020-07-24] MEDS ORDERED: LEVOTHYROXINE 75MCG TABLET (0.075MG) PO SCH (06:00)
[2020-07-24 06:34] LABS: HEMATOCRIT 47.6 % (36.0-47.0); HEMOGLOBIN 15.6 g/dl (12.0-15.5); MEAN CORPUSCULAR HEMOGLOBIN 28.7 pg (27.0-33.0); MEAN CORPUSCULAR HGB CONC 32.8 g/dl (32.0-36.5); MEAN CORPUSCULAR VOLUME 87.7 fl (80.0-96.0); PLATELET COUNT, AUTOMATED 182 10^3/uL (150-450); RED BLOOD COUNT 5.43 10^6/uL (4.00-5.40); WHITE BLOOD COUNT 8.3 10^3/uL (4.0-10.0)
[2020-07-24 07:01] LABS: ALBUMIN 3.1 GM/DL (3.2-5.2); ALT/SGPT 11 U/L (12-78); BILIRUBIN,TOTAL 0.6 MG/DL (0.2-1.0); BLOOD UREA NITROGEN 9 MG/DL (7-18); CALCIUM LEVEL 8.4 MG/DL (8.5-10.1); CARBON DIOXIDE LEVEL 30 MEQ/L (21-32); CHLORIDE LEVEL 106 MEQ/L (98-107); CREATININE FOR GFR 0.57 MG/DL (0.55-1.30); GLOMERULAR FILTRATION RATE > 60.0 (>51); GLUCOSE, FASTING 138 MG/DL (70-100); POTASSIUM SERUM 3.6 MEQ/L (3.5-5.1); SODIUM LEVEL 139 MEQ/L (136-145); TOTAL PROTEIN 6.4 GM/DL (6.4-8.2)
[2020-07-24] MEDS: NS 1,000 ML IV SCH (08:01)
[2020-07-24] MEDS ORDERED: ENOXAPARIN 40MG/0.4ML SYRINGE (J1650 PER 10MG) SC SCH (09:00)
[2020-07-24] MEDS ORDERED: FUROSEMIDE 20 MG TAB PO SCH (09:00)
[2020-07-24] MEDS ORDERED: ATORVASTATIN 10 MG TAB PO SCH (09:00)
[2020-07-24] MEDS ORDERED: LOSARTAN 50MG TABLET PO SCH (09:00)
[2020-07-24] MEDS ORDERED: DULoxetine 30 MG CAP (CYMBALTA) PO SCH (09:00)
[2020-07-24] MEDS ORDERED: CLINDAMYCIN TOP 1% SOLN 60 ML BTL TOP PRN (09:00)
[2020-07-24] MEDS ORDERED: CLOPIDOGREL 75 MG TAB PO SCH (09:00)
[2020-07-24] MEDS ORDERED: ENTER DRUG NAME HERE (PATIENT'S OWN MED) SC ONE (09:00)
[2020-07-24] MEDS: PANTOPRAZOLE 40MG TAB (PROTONIX) PO SCH (09:49)
[2020-07-24] MEDS: rOPINIRole 1MG TAB PO SCH (09:49)
[2020-07-24 09:51] VITALS: BP 136/80
[2020-07-24] MEDS: METOPROLOL TART 50 MG TAB PO SCH (09:51)
[2020-07-24] MEDS: NOVOLIN N SC ONE ×2 (10:11→10:16)
[2020-07-24] MEDS ORDERED: BENA25CA4 PO (10:41)
[2020-07-24] MEDS ORDERED: TIZA4TAB4 PO (10:41)
[2020-07-24] MEDS ORDERED: BACL1TAB9 PO ×2 (10:41)
--- NOTE | 2020-07-24 17:57 | DS.PDOC ---
Discharge Summary General Date of Admission Jul 23, 2020 at 12:47 Date of Discharge 07/24/20 Attending Physician: Rosetta Novak MD Discharge Summary HISTORY OF PRESENT ILLNESS: Patient is a 54 y/o F with PMH of chronic back pain, depression with hx of suicide attempt, IDDM, CKD, morbid obesity, RDS who presented to [facility] ER with chief complaint by family for worsening altered mental status over the past several days. Per family the patient was increasingly somnolent, increasingly tired, unmotivated past several days. At her baseline the patient is not like this. The patient takes baclofen, diazepam, Percocet and other drugs at home so there was a concern about her potentially taking more than normal. She had an admission in 2018 for medication overdose of baclofen which was later thought to be suicide attempt. She was brought to the ER for further evaluation Emergency room CT of the head was negative. The CBC mildly elevated at 10.2 chest x-ray could not rule out infiltrate versus atelectasis in the right lung base. Her in tox was positive for opiates and benzos she was given Narcan which did not improve her mental status. She was given IV fluids and over time improved slowly. Signs remained stable. On my evaluation of her the patient was still very lethargic, falling asleep while discussing what happened with me. She was able to answer; question but was overall not a reliable historian due to her increased tiredness. I her to our meeting ending, the patient states before she was brought to the hospital she remembers taking 50 of Benadryl and diazepam together. She takes Benadryl 50 mg twice a day before she administers her insulins due to an insulin allergy. She states she could take 25 mg twice a day but does not. For her to take Benadryl and diazepam together isn't something that not unusual for her she says. The patient was admitted for likely toxic encephalopathy 2/2 to multiple medications usage. She denied chest pain, shortness of breath, fevers, chills, n/v/d. HOSPITAL COURSE: All home meds were held at admission. By AM, patient was much more awake and alert. She has not had a medication reconciliation done with her PCP in quite some time. It appears she is on several muscle relaxants, narcotics PRN and scheduled that she is advised to decrease. She was discharged home with medication suggestions and told to follow up with her PCP within 1 weeks time. She denied chest pain, shortness of breath, n/v/d, fevers, chills at discharge. PAST MEDICAL HISTORY: IDDM. Morbid obesity. CKD Depression. RDS. dizziness. Chronic back pain. Herniated disks Lung nodule hx of suicide attempt with baclofen in 2019 PAST SURGICAL HISTORY: Unknown SOCIAL HISTORY: Hx of smoking 20 years, quit 2005. Denies illicit drug use, alcohol use. Lives with her family locally. Follows with PCP, pulmonology as o/p. Full code. FAMILY HISTORY: mother- Stage II Breast cancer. at 71 y/o. Father- HTN, DM type II. at 73 y/o ALLERGIES: Many allergies. Please see below. HOME MEDICATIONS: Please see below. PHYSICAL EXAMINATION: VS: Please see below CONSTITUTIONAL: AAOx3, NAD, sitting in bed EYES: PERRLA, EOM intact HENT, MOUTH: Normocephalic, atraumatic, moist mucous membranes NECK: SUPPLE, no JVD, no lymphadenopathy, no carotid bruit CV: Regular rate and rhythm, S1S2 normal, no murmurs/rubs/gallops RESPIRATORY: Clear to auscultation bilaterally, no rales/rhonchi/wheezes GI: obese abdomen, BS positive in 4 quadrants, soft, nontender, nondistended, no rebound or guarding, no organomegaly : Deferred MUSCULOSKELETAL: Normal ROM. No cyanosis, clubbing, swelling, joint deformity, extremity edema INTEGUMENTARY: Intact, no rashes, no lesions, no erythema NEUROLOGIC: Cranial Nerves II-XII are intact, no focal deficits LABORATORY DATA: Please see below IMAGING: CT head: No acute findings CXR: Mild patchy right base atelectasis/infiltrate. ASSESSMENT: 54 y/o F with PMH of chronic back pain, depression with hx of suicide attempt, IDDM, CKD, morbid obesity, RDS admitted for acute toxic encephalopathy likely 2/2 to multiple medications. PLAN: #Toxic encephalopathy 2/2 to drug combinations- resolved -S/p using benadryl and diazepam prior to coming to hospital. -Hx of suicide attempt with baclofen overdose 2019, patient denies suicide attempt this time -UDS: opiates, benzo. -Not suspecting infectious pneumonia as could not be ruled out on CXR -Suggestion at discharge: Decreased dose of baclofen, tizanidine, benadryl. -Would strongly advise her PCP and others prescribing the narcotics to review all meds on next visit #Uncontrolled DM type II -C/w home regimen, IVFs, FS AC/HS # HTN. -C/w home medications if needed can add hydralazine PRN # Depression/anxiety/panic attacks -Patient currently denies SI/HI -C/w home meds when confirmed by pharmacy DISPOSITION: Discharged home with decreased medications suggested. Recommend close follow up with PCP, other physicians who are controlling sedative and controlled substances. TIME SPENT ON DISCHARGE: Greater than 30 minutes. Vital Signs/I&Os Vital Signs Date Time Temp Pulse Resp B/P (MAP) Pulse Ox O2 Delivery O2 Flow Rate FiO2 07/24/20 09:51 77 136/80 07/24/20 06:00 97.9 18 96 Room Air 07/23/20 18:00 2.0 I&O- Last 24 Hours up to 6 AM 07/24/20 05:59 Intake Total 2000 ml Output Total 700 ml Balance 1300 ml Laboratory Data Labs 24H Laboratory Tests 2 07/23/20 20:14: Bedside Glucose (Misc Panel) 376H 07/24/20 05:55: Nucleated Red Blood Cells % (auto) 0.0, Anion Gap 3L, Glomerular Filtration Rate > 60.0, Calcium Level 8.4L, Total Bilirubin 0.6#, Aspartate Amino Transf (AST/SGOT) 7, Alanine Aminotransferase (ALT/SGPT) 11L, Alkaline Phosphatase 83, Total Protein 6.4, Albumin 3.1L, Albumin/Globulin Ratio 0.9L 07/24/20 08:07: Bedside Glucose (Misc Panel) 187H CBC/BMP Laboratory Tests 07/24/20 05:55 FSBS Laboratory Tests Test 07/23/20 20:14 07/24/20 08:07 Range/Units Bedside Glucose (Misc Panel) 376 187 70-105 MG/DL Discharge Medications Scheduled Atorvastatin Calcium (Atorvastatin Calcium) 10 Mg Tablet, 10 MG PO 3XW, (Reported) MON/WED/FRI Baclofen (Baclofen) 20 Mg Tab, 10 MG PO TID Baclofen (Baclofen) 20 Mg Tablet, 20 MG PO QHS Calcium Carbonate (Calcium) 500 Mg Tab.chew, 500 MG PO DAILY, (Reported) Clopidogrel Bisulfate (Clopidogrel) 75 Mg Tablet, 75 MG PO DAILY, (Reported) Duloxetine Hcl (Duloxetine HCl) 30 Mg Capsule.dr, 30 MG PO DAILY, (Reported) Furosemide (Furosemide) 20 Mg Tab, 30 MG PO DAILY, (Reported) Insulin Human NPH (Novolin N) 1 Ml Susp, 81 UNITS SQ BID, (Reported) SEE ALLERGY NOTE Levothyroxine Sodium (Levothyroxine Sodium) 75 Mcg Tablet, 75 MCG PO DAILY, (Reported) Losartan Potassium (Losartan Potassium) 100 Mg Tablet, 100 MG PO DAILY, (Reported) Metoprolol Tartrate (Lopressor) 50 Mg Tab, 50 MG PO BID, (Reported) Morphine Sulfate (Morphine Sulfate ER) 30 Mg Tabcr, 30 MG PO BID, (Reported) Oxycodone HCl/Acetaminophen (Percocet 10-325 mg Tablet) 1 Tab Tab, 1 TAB PO BID, (Reported) Pantoprazole Sodium (Pantoprazole Sodium) 40 Mg Tablet.dr, 40 MG PO BID, (Reported) Pedi Multivit No.7/Folic Acid (Flintstones Tab Chew) 100 Mcg Tab.chew, 1 CHW PO DAILY, (Reported) Pregabalin (Lyrica) 150 Mg Capsule, 150 MG PO TID, (Reported) Ropinirole HCl (Ropinirole HCl) 2 Mg Tablet, 2 MG PO TID, (Reported) Scheduled PRN Albuterol Sulfate (Ventolin Hfa) 108 Mcg/Act Aer, 2 PUFFS INH Q4H PRN for SOB/WHEEZING, (Reported) Clindamycin Phosphate (Clindamycin Phosphate) 1% 30GM Gel..gram., 1 APLCT TOP DAILY PRN for BOILS, (Reported) apply to affected area(s) Diazepam (Diazepam) 5 Mg Tab, 5 MG PO DAILY PRN for ANXIETY, (Reported) SEE COMMENTS Diphenhydramine HCl (Benadryl) 25 Mg Cap, 25 MG PO QHS PRN for SLEEP Nystatin (Nystatin Powder) 100,000 Unit/Gm Pow, 1 DOSE TOP QHS PRN for RASH/ITCHING, (Reported) APPLY UNDER BREASTS, ABDOMINAL FOLDS Promethazine HCl (Promethazine HCl) 12.5 Mg Tab, 12.5 MG PO Q6H PRN for NAUSEA, (Reported) Propylene Glycol/Peg 400/Pf (Systane 0.3-0.4% Eye Drop) 1 Each Droperette, 1 DROP OU QID PRN for DRY EYES, (Reported) Rizatriptan Benzoate (Rizatriptan) 10 Mg Tab.rapdis, 10 MG PO ASDIRECTED PRN for MIGRAINE, (Reported) Tizanidine HCl (Tizanidine HCl) 4 Mg Tablet, 4 MG PO TID PRN for MUSCLE SPASMS Allergies Coded Allergies: metoclopramide (Verified Allergy, Severe, anaphylaxis, 03/04/19) ondansetron (Verified Allergy, Severe, hive/anaphylaxis, 03/04/19) prochlorperazine (Verified Allergy, Severe, anaphylaxis, 03/04/19) Insulins (Verified Allergy, Intermediate, hives - CAN TAKE NOVOLIN N ONLY, 03/04/19) aspirin (Verified Allergy, Intermediate, hives, 03/04/19) ciprofloxacin (Verified Allergy, Intermediate, hives, 03/04/19) clonidine (Verified Allergy, Intermediate, rash, 03/04/19) naproxen (Verified Allergy, Intermediate, rash, 03/04/19) sucralfate (Verified Allergy, Intermediate, hives, 03/04/19) ketamine (Verified Adverse Reaction, Severe, "can't move legs", 03/04/19) amoxicillin (Verified Adverse Reaction, Mild, stomach cramps, 03/04/19) clavulanic acid (Verified Adverse Reaction, Mild, stomach cramps, 03/04/19) guaifenesin (Verified Adverse Reaction, Mild, insomnia, 03/04/19) Rosetta Novak MD Jul 24, 2020 17:57
== END 2020-07-24 11:37 | disposition home or self-care (01) ==
LOC: M ED 12:46 → M ED INP 12:47 → ENRESERV 16:16 → M MSPAV 18:22
PROVIDERS: ADMIT Internal Medicine; ATTEND Internal Medicine
DX: G92 Toxic encephalopathy (principal); E11.65 Type 2 diabetes mellitus with hyperglycemia; I10 Essential (primary) hypertension; F32.9 Major depressive disorder, single episode, unspecified; F41.0 Panic disorder [episodic paroxysmal anxiety]; Z79.4 Long term (current) use of insulin; Z79.899 Other long term (current) drug therapy; E66.01 Morbid (severe) obesity due to excess calories; N18.9 Chronic kidney disease, unspecified; R91.1 Solitary pulmonary nodule; R42 Dizziness and giddiness; M54.9 Dorsalgia, unspecified; Z87.891 Personal history of nicotine dependence; Z88.8 Allergy status to other drugs, medicaments and biological substances; Z88.1 Allergy status to other antibiotic agents; Z88.0 Allergy status to penicillin
CPT/HCPCS: 36415; 36600; 70450; 71045; 80048; 80053; 80076; 80307; 81001; 82140; 82550; 82553; 82803; 84443; 84484; 85025; 85027; 93005; 93041; 96361; 96374; 97161; 97165; 99285; G0378; G0480; J2310; U0002

== ENCOUNTER → 2020-08-09 | Outpatient (CLI) | payer MEDICARE ==
[~2020-08-09] MED LIST changes: +ATOR1TAB19 PO; +CALC500T68 PO; +CLIN1GEL22 TOP; +CLOP75TA2 PO; +DULO1CAP5 PO; +FLINCHW11 PO; +ISOVUE-370 76% 100ML VIAL As Ordered ONE; +LEVO75TA4 PO; +LOSA100T50 PO; +LYRI150C PO; +PANT40TA29 PO; +SYST1SOL4 OU; +TIZA4TAB4 PO
--- NOTE | 2020-08-09 10:40 | REPVR ---
PROCEDURE INFORMATION: Exam: CT Neck With Contrast Exam date and time: 08/09/2020 10:02 AM Age: 54 years old Clinical indication: Neck pain; Additional info: Benign neoplasm parotid gland TECHNIQUE: Imaging protocol: Computed tomography images of the neck with intravenous contrast. Radiation optimization: All CT scans at this facility use at least one of these dose optimization techniques: automated exposure control; mA and/or kV adjustment per patient size (includes targeted exams where dose is matched to clinical indication); or iterative reconstruction. Contrast material: ISOVUE 370; Contrast volume: 75 ml; Contrast route: INTRAVENOUS (IV); COMPARISON: CT Neck with contrast 09/18/2016 2:57 PM FINDINGS: Nasopharynx: Unremarkable. Dental: Edentulous maxilla and mandible. Oropharynx: Unremarkable. No significant tonsillar enlargement. Hypopharynx: Unremarkable. Larynx: Unremarkable. Normal epiglottis. Retropharyngeal space: Unremarkable. Submandibular/Parotid glands: Normal. Glands are normal in size. Thyroid: Normal. No enlarged or calcified nodules. Lymph nodes: Right parotid superficial lobe intraparotid lymph node measuring 4.3 mm short axis, stable. Somewhat deeper right parotid gland superficial lobe lymph node measuring 5.0 mm short axis, previously 5.4 mm. Left parotid superficial lobe posterior intraparotid lymph node measuring 3 mm short axis, previously 3.9 mm. Left level 2/3 lymph node measuring 6.4 mm short axis. Right level 2 lymph node measuring 6.9 mm short axis. Trachea: Visualized trachea is unremarkable. Lungs: Incompletely imaged 17.2 x 8.1 mm partially gas containing (cavitary? bronchiectasis with mucoid impaction?) thin walled lesion right upper lobe (series 201, image 79). Bones/joints: C2-C3 congenital vertebral fusion. Soft tissues: Unremarkable. No significant soft tissue swelling. IMPRESSION: 1. Small bilateral intraparotid lymph nodes, stable or decreased in size. No specific followup required/recommended. 2. Incompletely imaged nonspecific right upper lobe lesion. Nonemergent CT of the chest recommended for further evaluation. Fleischner Society recommendations not given due incomplete characterization of the lesion. Electronically signed by: Erich Valentin On 08/09/2020 10:40:02 AM
== END ==
LOC: M RAD 09:37
PROVIDERS: ATTEND Specialist
DX: D11.0 Benign neoplasm of parotid gland (principal); R91.8 Other nonspecific abnormal finding of lung field
CPT/HCPCS: 70491; Q9967

== ENCOUNTER 2020-09-10 13:19 | Emergency (ER) | payer MEDICARE, OTHER ==
[~2020-09-10] VITALS: Ht 167.6 cm; Wt 107.3 kg
[~2020-09-10 13:19] MED LIST changes: -ISOVUE-370 76% 100ML VIAL As Ordered ONE
[2020-09-10 13:21] VITALS: BP 158/92
[2020-09-10] MEDS ORDERED: MORPHINE 4 MG/ML 1ML VIAL/SYRINGE (J2270) IV PRN (16:45)
[2020-09-10] MEDS ORDERED: NS IV ONE (16:45)
[2020-09-10 17:30] LABS: BASO % 0.2 % (0.0-1.0); EOS % 0.2 % (0.0-3.0); HEMATOCRIT 51.6 % (36.0-47.0); HEMOGLOBIN 16.7 g/dl (12.0-15.5); LYMPH # 1.8 10^3/uL (1.5-5.0); LYMPH % 9.9 % (24.0-44.0); MEAN CORPUSCULAR HEMOGLOBIN 28.4 pg (27.0-33.0); MEAN CORPUSCULAR HGB CONC 32.4 g/dl (32.0-36.5); MEAN CORPUSCULAR VOLUME 87.9 fl (80.0-96.0); MONO # 1.1 10^3/uL (0.0-0.8); MONO % 5.8 % (0.0-5.0); NEUTROPHILS # 15.2 10^3/uL (1.5-8.5); NEUTROPHILS % 83.5 % (36.0-66.0); PLATELET COUNT, AUTOMATED 176 10^3/uL (150-450); RED BLOOD COUNT 5.87 10^6/uL (4.00-5.40); WHITE BLOOD COUNT 18.2 10^3/uL (4.0-10.0)
[2020-09-10 18:02] LABS: ERYTHROCYTE SEDIMENTATION RATE 2 mm/hr (0-30)
[2020-09-10 18:04] LABS: ALBUMIN 3.8 GM/DL (3.2-5.2); ALT/SGPT 10 U/L (12-78); BILIRUBIN,DIRECT 0.2 MG/DL (0.0-0.2); BILIRUBIN,TOTAL 1.2 MG/DL (0.2-1.0); BLOOD UREA NITROGEN 6 MG/DL (7-18); CALCIUM LEVEL 9.4 MG/DL (8.5-10.1); CARBON DIOXIDE LEVEL 30 MEQ/L (21-32); CHLORIDE LEVEL 97 MEQ/L (98-107); GLOMERULAR FILTRATION RATE > 60.0 (>51); GLUCOSE, FASTING 345 MG/DL (70-100); LIPASE 44 U/L (73-393); POTASSIUM SERUM 3.7 MEQ/L (3.5-5.1); SODIUM LEVEL 131 MEQ/L (136-145); TOTAL PROTEIN 7.6 GM/DL (6.4-8.2)
[2020-09-10] MEDS ORDERED: ISOVUE-370 76% 100ML VIAL As Ordered ONE (18:42)
--- NOTE | 2020-09-10 19:34 | REPVR ---
PROCEDURE INFORMATION: Exam: CT Abdomen And Pelvis With Contrast Exam date and time: 09/10/2020 6:38 PM Age: 55 years old Clinical indication: Other: Abscess; Additional info: Large abscess, cellulitis labia TECHNIQUE: Imaging protocol: Computed tomography of the abdomen and pelvis with intravenous contrast. Radiation optimization: All CT scans at this facility use at least one of these dose optimization techniques: automated exposure control; mA and/or kV adjustment per patient size (includes targeted exams where dose is matched to clinical indication); or iterative reconstruction. Contrast material: ISOVUE 370; Contrast volume: 100 ml; Contrast route: INTRAVENOUS (IV); COMPARISON: CT ABD/PEL W/IV CONTRAST ONLY 06/09/2018 2:49 PM FINDINGS: Liver: Diffuse hepatic steatosis in addition to small focal steatosis in the left hepatic lobe. No hepatic mass or intrahepatic duct dilatation. Gallbladder and bile ducts: Status post cholecystectomy. Mildly prominent common bile duct, likely secondary to the post cholecystectomy state, unchanged. Pancreas: Generalized atrophy of the pancreas, unchanged. No pancreatic duct dilatation or focal pancreatic lesion. Spleen: Unremarkable. No splenomegaly. Adrenal glands: Normal. No mass. Kidneys and ureters: Unremarkable. No stones. No hydronephrosis. Stomach and bowel: 20 mm diverticulum of the posterior wall of the gastric cardia, unchanged. The stomach is otherwise unremarkable. Mild colonic diverticulosis without diverticulitis. No colitis or enteritis. No bowel obstruction. Appendix: No evidence of appendicitis. Intraperitoneal space: Unremarkable. No free air. No significant fluid collection. Vasculature: Unremarkable. No abdominal aortic aneurysm. Lymph nodes: Unremarkable. No enlarged lymph nodes. Urinary bladder: Unremarkable as visualized. Reproductive: Unremarkable as visualized. Bones/joints: Degenerative spondylosis and scoliosis of the lumbar spine. Grade 1 anterolisthesis of L4. No fracture or suspicious bone lesion. Soft tissues: Generalized swelling, fluid density and reticulation within the subcutaneous tissues of the right labia extending superiorly into the subcutaneous tissues of the mons pubis (right greater than left) and deep subcutaneous tissues superficial to the anterior abdominal wall musculature of the right lower quadrant is consistent with cellulitis. No abscess. No soft tissue gas collection. Two punctate gas collections seen on coronal reformatted image 52 and 53 are likely between the right and left labial folds. IMPRESSION: 1. Cellulitis of the right labia extending superiorly into the mons pubis (right greater than left) and the deep subcutaneous tissues superficial to the anterior abdominal wall musculature of the right lower quadrant. 2. No abscess. Electronically signed by: Shaji Elias On 09/10/2020 19:35:21 PM
[2020-09-10] MEDS ORDERED: CLEO300C2 PO (20:09)
[2020-09-10] MEDS ORDERED: MORPHINE 4 MG/ML 1ML VIAL/SYRINGE (J2270) IV ONE (20:15)
[2020-09-10] MEDS ORDERED: CLINDAMYCIN 600 MG in IV 1 EA IV ONE (20:15)
== END 2020-09-10 21:14 | disposition home or self-care (01) ==
LOC: M ED 13:19
DX: N76.2 Acute vulvitis (principal); E11.9 Type 2 diabetes mellitus without complications; I10 Essential (primary) hypertension; R51.9 Headache, unspecified; F17.200 Nicotine dependence, unspecified, uncomplicated; Z79.4 Long term (current) use of insulin; Z79.899 Other long term (current) drug therapy; Z88.0 Allergy status to penicillin; Z88.8 Allergy status to other drugs, medicaments and biological substances; Z88.1 Allergy status to other antibiotic agents; Z88.6 Allergy status to analgesic agent
CPT/HCPCS: 74177; 80048; 80076; 83605; 83690; 85025; 85652; 86140; 87040; 96361; 96365; 96375; 99284; J2270; Q9967

== ENCOUNTER 2020-09-11 19:45 | Emergency (ER) | payer MEDICARE, OTHER ==
[~2020-09-11] VITALS: Ht 167.6 cm; Wt 107.3 kg
[~2020-09-11 19:45] MED LIST changes: +CLEO300C2 PO
[2020-09-11] MEDS ORDERED: MORPHINE 4 MG/ML 1ML VIAL/SYRINGE (J2270) IV ONE (22:15)
[2020-09-11] MEDS ORDERED: NS 1,000 ML IV ONE (22:15)
[2020-09-11 23:28] LABS: BASO # 0.1 10^3/uL (0.0-0.2); BASO % 0.3 % (0.0-1.0); EOS # 0.3 10^3/uL (0.0-0.5); EOS % 1.8 % (0.0-3.0); HEMATOCRIT 51.6 % (36.0-47.0); HEMOGLOBIN 15.6 g/dl (12.0-15.5); LYMPH # 2.3 10^3/uL (1.5-5.0); MEAN CORPUSCULAR HEMOGLOBIN 28.1 pg (27.0-33.0); MEAN CORPUSCULAR HGB CONC 30.2 g/dl (32.0-36.5); MONO # 1.2 10^3/uL (0.0-0.8); MONO % 6.5 % (0.0-5.0); NEUTROPHILS % 78.1 % (36.0-66.0); PLATELET COUNT, AUTOMATED 166 10^3/uL (150-450); RED BLOOD COUNT 5.55 10^6/uL (4.00-5.40)
[2020-09-12 00:18] LABS: BLOOD UREA NITROGEN 8 MG/DL (7-18); CALCIUM LEVEL 9.2 MG/DL (8.5-10.1); CARBON DIOXIDE LEVEL 29 MEQ/L (21-32); CHLORIDE LEVEL 101 MEQ/L (98-107); CREATININE FOR GFR 0.78 MG/DL (0.55-1.30); GLOMERULAR FILTRATION RATE > 60.0 (>51); GLUCOSE, FASTING 328 MG/DL (70-100); POTASSIUM SERUM 3.9 MEQ/L (3.5-5.1); SODIUM LEVEL 135 MEQ/L (136-145)
[2020-09-12] MEDS ORDERED: MORPHINE 4 MG/ML 1ML VIAL/SYRINGE (J2270) IV ONE ×2 (00:45→01:45)
[2020-09-12] MEDS ORDERED: LIDOCAINE 4% CREAM 5GM (LMX4) TOP ONE (01:00)
[2020-09-12] MEDS ORDERED: ANEC4CRE3 TOP (01:43)
[2020-09-12] MEDS ORDERED: PROMETHAZINE 25 MG TAB PO ONE (01:45)
[2020-09-12] MEDS ORDERED: CLINDAMYCIN 150MG CAPSULE PO ONE (02:15)
[2020-09-12 02:23] VITALS: BP 166/80
== END 2020-09-12 02:25 | disposition home or self-care (01) ==
LOC: M ED 19:45
DX: R10.2 Pelvic and perineal pain (principal); N76.2 Acute vulvitis; D72.829 Elevated white blood cell count, unspecified; E11.9 Type 2 diabetes mellitus without complications; I10 Essential (primary) hypertension; R51.9 Headache, unspecified; Z86.718 Personal history of other venous thrombosis and embolism; E03.9 Hypothyroidism, unspecified; F17.200 Nicotine dependence, unspecified, uncomplicated; Z79.4 Long term (current) use of insulin; Z79.899 Other long term (current) drug therapy; Z88.8 Allergy status to other drugs, medicaments and biological substances; Z88.0 Allergy status to penicillin; Z88.1 Allergy status to other antibiotic agents; Z88.6 Allergy status to analgesic agent
CPT/HCPCS: 80048; 83605; 85025; 85652; 86140; 96361; 96374; 96376; 99283; J2270

== ENCOUNTER 2020-09-12 09:39 | Emergency (ER) | payer MEDICARE ==
[~2020-09-12] VITALS: Ht 167.6 cm; Wt 107.3 kg
[~2020-09-12 09:39] MED LIST changes: +ANEC4CRE3 TOP
[2020-09-12 11:43] LABS: BASO % 0.3 % (0.0-1.0); EOS # 0.2 10^3/uL (0.0-0.5); EOS % 1.1 % (0.0-3.0); HEMATOCRIT 49.2 % (36.0-47.0); HEMOGLOBIN 15.7 g/dl (12.0-15.5); LYMPH # 1.2 10^3/uL (1.5-5.0); LYMPH % 7.6 % (24.0-44.0); MEAN CORPUSCULAR HEMOGLOBIN 28.2 pg (27.0-33.0); MEAN CORPUSCULAR HGB CONC 31.9 g/dl (32.0-36.5); MEAN CORPUSCULAR VOLUME 88.5 fl (80.0-96.0); MONO # 1.1 10^3/uL (0.0-0.8); NEUTROPHILS # 12.7 10^3/uL (1.5-8.5); NEUTROPHILS % 83.3 % (36.0-66.0); PLATELET COUNT, AUTOMATED 163 10^3/uL (150-450); RED BLOOD COUNT 5.56 10^6/uL (4.00-5.40); WHITE BLOOD COUNT 15.3 10^3/uL (4.0-10.0)
[2020-09-12 12:18] LABS: ALBUMIN 3.4 GM/DL (3.2-5.2); ALT/SGPT 11 U/L (12-78); BLOOD UREA NITROGEN 7 MG/DL (7-18); CALCIUM LEVEL 8.9 MG/DL (8.5-10.1); CARBON DIOXIDE LEVEL 26 MEQ/L (21-32); CHLORIDE LEVEL 99 MEQ/L (98-107); CREATININE FOR GFR 0.78 MG/DL (0.55-1.30); GLOMERULAR FILTRATION RATE > 60.0 (>51); GLUCOSE, FASTING 339 MG/DL (70-100); POTASSIUM SERUM 4.7 MEQ/L (3.5-5.1); SODIUM LEVEL 132 MEQ/L (136-145); TOTAL PROTEIN 6.9 GM/DL (6.4-8.2)
[2020-09-12] MEDS ORDERED: ISOVUE-370 76% 100ML VIAL As Ordered ONE (12:26)
[2020-09-12] MEDS ORDERED: MORPHINE 4 MG/ML 1ML VIAL/SYRINGE (J2270) IV ONE ×2 (12:30→15:15)
--- NOTE | 2020-09-12 13:09 | REP ---
INDICATION: worsening swelling/pain to right groin region; r/o abscess COMPARISON: 09/10/2020. TECHNIQUE: CT Scan of the abdomen and pelvis was performed with intravenous administration of 100 cc of Isovue 370, without oral contrast. FINDINGS: Lung bases: Unremarkable. Liver: Normal Gallbladder: There has been a prior cholecystectomy. Spleen: Normal. Adrenals: Normal. Pancreas: There is some fatty infiltration of the pancreas. Kidneys: Normal. Small and large bowel: Unremarkable. Free fluid: None. Abdominal aorta: No aneurysm or dissection. Adenopathy: There is a mildly enlarged right common iliac lymph node measuring 1.3 cm. A 1.1 cm lymph node is seen in the right external iliac region there are bilateral subcentimeter inguinal lymph nodes. There is a 1.3 cm left external iliac lymph node. Appendix: Not inflamed. Osseous structures: Unremarkable. Pelvis: No mass.Few metallic clips are seen in the right inguinal region. There is diffuse edema and inflammation again seen in the region of the right vulva and mons pubis, extending into the right inguinal region, increased since the prior study. No abscess collection is seen. There has been a prior hysterectomy. The urinary bladder is unremarkable. IMPRESSION: Increased inflammatory change in the region of the right vulva and mons pubis, extending into the right inguinal region. No abscess collection seen. Very mild pelvic adenopathy likely reactive. <Electronically signed by Len Ceron > 09/12/20 [id number]
[2020-09-12] MEDS ORDERED: CLINDAMYCIN 900 MG in IV 1 EA IV ONE (13:15)
[2020-09-12 13:20] LABS: ERYTHROCYTE SEDIMENTATION RATE 12 mm/hr (0-30)
[2020-09-12 15:55] VITALS: BP 176/96
== END 2020-09-12 15:57 | disposition home or self-care (01) ==
LOC: EDBD 09:39 → M ED 09:39
DX: L03.314 Cellulitis of groin (principal); N76.2 Acute vulvitis; E11.9 Type 2 diabetes mellitus without complications; K21.9 Gastro-esophageal reflux disease without esophagitis; F32.9 Major depressive disorder, single episode, unspecified; Z79.4 Long term (current) use of insulin; Z79.899 Other long term (current) drug therapy; Z88.8 Allergy status to other drugs, medicaments and biological substances; Z88.0 Allergy status to penicillin; Z88.1 Allergy status to other antibiotic agents; Z88.6 Allergy status to analgesic agent
CPT/HCPCS: 74177; 80053; 83605; 85025; 85652; 86140; 96365; 96375; 96376; 99284; J2270; Q9967

== ENCOUNTER → 2020-09-27 | Outpatient (REF) | payer MEDICARE, OTHER | LOC: M SFHCWAGY 09:41 | PROVIDERS: ATTEND Obstetrics & Gynecology | DX: N76.4 Abscess of vulva (principal) ==

== ENCOUNTER 2020-10-10 17:09 | Emergency (ER) | payer MEDICARE, OTHER ==
[~2020-10-10] VITALS: Ht 167.6 cm; Wt 104.3 kg
[2020-10-10] MEDS ORDERED: NS 1,000 ML IV ONE (19:30)
[2020-10-10 20:32] LABS: BASO % 0.4 % (0.0-1.0); EOS # 0.1 10^3/uL (0.0-0.5); EOS % 1.3 % (0.0-3.0); HEMATOCRIT 48.7 % (36.0-47.0); LYMPH % 56.8 % (24.0-44.0); MEAN CORPUSCULAR HEMOGLOBIN 28.4 pg (27.0-33.0); MEAN CORPUSCULAR HGB CONC 32.9 g/dl (32.0-36.5); MEAN CORPUSCULAR VOLUME 86.5 fl (80.0-96.0); MONO # 0.4 10^3/uL (0.0-0.8); MONO % 7.2 % (0.0-5.0); NEUTROPHILS # 1.8 10^3/uL (1.5-8.5); NEUTROPHILS % 34.1 % (36.0-66.0); PLATELET COUNT, AUTOMATED 136 10^3/uL (150-450); RED BLOOD COUNT 5.63 10^6/uL (4.00-5.40); WHITE BLOOD COUNT 5.3 10^3/uL (4.0-10.0)
[2020-10-10 20:42] LABS: INR 0.95; PROTHROMBIN TIME 12.9 SECONDS (12.5-14.3)
[2020-10-10 20:43] LABS: PARTIAL THROMBOPLASTIN TIME 28.1 SECONDS (24.2-38.5)
[2020-10-10] MEDS ORDERED: ISOVUE-370 76% 100ML VIAL As Ordered ONE (20:48)
[2020-10-10 20:49] LABS: ALBUMIN 3.4 GM/DL (3.2-5.2); ALT/SGPT 15 U/L (12-78); BILIRUBIN,DIRECT < 0.1 MG/DL (0.0-0.2); BILIRUBIN,TOTAL 0.4 MG/DL (0.2-1.0); C REACTIVE PROTEIN QUANTITATIV 0.84 MG/DL (0.00-0.30); TOTAL PROTEIN 6.9 GM/DL (6.4-8.2)
--- NOTE | 2020-10-10 21:27 | REPVR ---
PROCEDURE INFORMATION: Exam: CT Abdomen And Pelvis With Contrast Exam date and time: 10/10/2020 8:56 PM Age: 55 years old Clinical indication: Abdominal pain; Localized; Lower; Additional info: Expanding infection labia/pubis with pain in lower abdomen TECHNIQUE: Imaging protocol: Computed tomography of the abdomen and pelvis with contrast. Radiation optimization: All CT scans at this facility use at least one of these dose optimization techniques: automated exposure control; mA and/or kV adjustment per patient size (includes targeted exams where dose is matched to clinical indication); or iterative reconstruction. Contrast material: ISOVUE 370; Contrast volume: 100 ml; Contrast route: INTRAVENOUS (IV); COMPARISON: CT ABD/PEL W/IV CONTRAST ONLY 09/12/2020 12:27 PM FINDINGS: Lungs: Patchy ground-glass infiltrates in the lingular lobe. Findings may indicate acute pneumonitis to be evaluated clinically. Liver: There is a diffuse decrease in hepatic parenchymal density, consistent with steatosis. Gallbladder and bile ducts: There has been a cholecystectomy. Pancreas: There is diffuse pancreatic atrophy. Spleen: Normal. No splenomegaly. Adrenal glands: Normal. No mass. Kidneys and ureters: Normal. No hydronephrosis. Stomach and bowel: Gastric diverticulum. Stomach otherwise unremarkable. There is increased feces throughout the colon consistent with constipation. Appendix: No evidence of appendicitis. Intraperitoneal space: Unremarkable. No free air. No significant fluid collection. Vasculature: Unremarkable. No abdominal aortic aneurysm. Lymph nodes: Unremarkable. No enlarged lymph nodes. Urinary bladder: Unremarkable as visualized. Reproductive: There has been a hysterectomy. Bones/joints: Rib deformity left 7th rib consistent with prior healed rib fracture. Severe central spinal stenosis L3-L4 and moderate central spinal stenosis L4-L5. Soft tissues: There is a small umbilical hernia. There is no evidence of incarceration. Inflammation demonstrated in the mons pubis, vulva, and labia majora on the right with solid components. Findings consistent with infection. An abscess is not excluded although no gas bubbles demonstrated. Findings have diminished in comparison to the prior study of 09/12/2020. Other findings: Levoscoliosis. IMPRESSION: 1. Patchy ground-glass infiltrates in the lingular lobe. Findings may indicate acute pneumonitis to be evaluated clinically. 2. There is a diffuse decrease in hepatic parenchymal density, consistent with steatosis. 3. There is diffuse pancreatic atrophy. 4. There has been a cholecystectomy. 5. There has been a hysterectomy. 6. There is increased feces throughout the colon consistent with constipation. 7. Improving inflammation demonstrated in the labia majora, vulva and mons pubis on the right with solid components. Findings consistent with infection. An abscess is not excluded although no gas bubbles demonstrated at this time. Electronically signed by: David Reynoso On 10/10/2020 21:27:38 PM
[2020-10-10 21:45] LABS: ERYTHROCYTE SEDIMENTATION RATE 5 mm/hr (0-30)
[2020-10-10] MEDS ORDERED: ACETAMINOPHEN 500 MG TAB PO ONE ×2 (22:00→22:30)
[2020-10-10 22:11] VITALS: BP 162/92
[2020-10-10] MEDS ORDERED: ACETAMINOPHEN TAB 650MG DOSE (2X325MG) PO ONE (22:15)
--- NOTE | 2020-10-12 09:51 | ED PDOC ---
Post-Departure Follow-Up brianna miller and nathan faxed formal report of ct abd/p for fu Jacinto Campoverde MD Oct 12, 2020 09:51
== END 2020-10-10 22:54 | disposition home or self-care (01) ==
LOC: M ED 17:09
DX: N39.9 Disorder of urinary system, unspecified (principal); E66.9 Obesity, unspecified; E11.9 Type 2 diabetes mellitus without complications; I10 Essential (primary) hypertension; E78.5 Hyperlipidemia, unspecified; E03.9 Hypothyroidism, unspecified; F41.9 Anxiety disorder, unspecified; F32.9 Major depressive disorder, single episode, unspecified; M54.9 Dorsalgia, unspecified; M54.2 Cervicalgia; G43.909 Migraine, unspecified, not intractable, without status migrainosus; R91.1 Solitary pulmonary nodule; Z86.718 Personal history of other venous thrombosis and embolism; K31.84 Gastroparesis; F17.200 Nicotine dependence, unspecified, uncomplicated; Z79.4 Long term (current) use of insulin; Z79.899 Other long term (current) drug therapy; Z88.8 Allergy status to other drugs, medicaments and biological substances; Z88.0 Allergy status to penicillin; Z88.1 Allergy status to other antibiotic agents; Z88.6 Allergy status to analgesic agent
CPT/HCPCS: 74177; 80047; 80076; 81001; 83605; 85025; 85610; 85652; 85730; 86140; 87040; 96360; 96361; 99284; G0463; Q9967

== ENCOUNTER → 2020-10-23 | Outpatient (REF) | payer MEDICARE | LOC: M SFHCWAGY 12:47 | PROVIDERS: ATTEND Obstetrics & Gynecology | DX: L73.2 Hidradenitis suppurativa (principal) | CPT/HCPCS: 87070; 87077; 87186; G0463 ==

== ENCOUNTER → 2021-02-18 | Outpatient (CLI) | payer MEDICARE, SELFPAY ==
--- NOTE | 2021-02-18 11:45 | REP ---
INDICATION: RUQ PAIN. FINDINGS: Multiple ultrasonographic images of the liver shows diffuse increased echos throughout the hepatic parenchyma without evidence of a mass or ductal dilatation. The maximal hepatic dimension at the midclavicular line is 19.7 cm. The common bile duct measures approximately 7 mm in its greatest transverse dimension. Images of the pancreatic region show no gross abnormality. There is no free fluid. The imaged portion of the right kidney is unremarkable. IMPRESSION: Status post cholecystectomy. Fatty infiltration of the liver. Known hepatomegaly. Accredited by the [employer] in General Ultrasound. <Electronically signed by Joao Escalera > 02/18/21 [id number]
== END ==
LOC: M RAD 08:43
PROVIDERS: ATTEND Family Medicine
DX: R10.13 Epigastric pain (principal); K76.0 Fatty (change of) liver, not elsewhere classified; R16.0 Hepatomegaly, not elsewhere classified; Z90.49 Acquired absence of other specified parts of digestive tract

== ENCOUNTER → 2021-03-17 | Outpatient (REF) | payer MEDICARE ==
[~2021-03-17] MED LIST changes: +AZIT-12 PO; +ISOS5TA PO; +LOSA100T45 PO; -LOSA100T50 PO; +LOSA50TA28 PO; -LOSA50TA88 PO; +METR-265 PO; +MIRA3350 PO; +MYLA1SUS PO; +PROM50TA4 PO; +TIZA10TA PO; -TIZA4TAB4 PO
[2021-03-17 21:54] LABS: APPEARANCE, URINE HAZY (CLEAR); BACTERIA, URINE AUTO NEGATIVE (NEGATIVE); BILIRUBIN, URINE AUTO NEGATIVE (NEGATIVE); BLOOD, URINE BLOOD NEGATIVE (NEGATIVE); COLOR, URINE YELLOW (YELLOW); GLUCOSE, URINE (UA) AUTO 3+ mg/dL (NEGATIVE); KETONE, URINE AUTO NEGATIVE (NEGATIVE); LEUKOCYTE ESTERASE, URINE AUTO NEGATIVE (NEGATIVE); NITRITE, URINE AUTO NEGATIVE (NEGATIVE); PROTEIN, URINE AUTO NEGATIVE (NEGATIVE); RBC, URINE AUTO 0 /HPF (0-3); SQUAMOUS EPITHELIAL CELL UR AU 3 /HPF (0-6); UROBILINOGEN, URINE AUTO 0.2 mg/dL (0.0-2.0); WBC, URINE AUTO 4 /HPF (0-3)
== END ==
LOC: M LAB REF 21:24
PROVIDERS: ATTEND Physician Assistant Medical
DX: N39.0 Urinary tract infection, site not specified (principal)

== ENCOUNTER 2021-03-29 11:17 | Emergency (ER) | payer MEDICARE ==
[~2021-03-29] VITALS: Ht 167.6 cm; Wt 102.7 kg
[~2021-03-29 11:17] MED LIST changes: -AZIT-12 PO; -ISOS5TA PO; -LOSA100T45 PO; +LOSA100T50 PO; -LOSA50TA28 PO; +LOSA50TA88 PO; -METR-265 PO; -MIRA3350 PO; -MYLA1SUS PO; -PROM50TA4 PO; -TIZA10TA PO; +TIZA4TAB4 PO
--- NOTE | 2021-03-29 14:29 | REP ---
INDICATION: R knee/leg pain, ro clot. COMPARISON: June 12, 2019.. TECHNIQUE: Right {lower extremity duplex venous scanning is performed from the groin to the ankle level. FINDINGS: The deep veins are anechoic and fully compressible from the groin to the popliteal fossa in the right lower extremity. Color flow imaging is homogeneous. Spectral Doppler interrogation demonstrates intact respiratory variation in flow and normal manual augmentation of flow. There is no evidence of deep vein thrombosis above the knee. There is no evidence of DVT in the visualized calf veins. Doppler interrogation of the contralateral common femoral vein shows normal symmetric respiratory phasicity. In the anteromedial aspect of the knee there is a fluid collection 2.9 x 1.1 x 2.4 cm in diameter. This may reflect cyst or joint fluid. IMPRESSION: No evidence of DVT in the right lower extremity femoropopliteal veins. No DVT in the visible portions of the calf veins. Incidental complex fluid collection anteromedial aspect of the knee. 2.9 cm in greatest diameter. <Electronically signed by Bijan Edmondson > 03/29/21 [id number]
[2021-03-29 15:00] VITALS: BP 162/89
== END 2021-03-29 15:03 | disposition home or self-care (01) ==
LOC: M ED 11:17
DX: M25.461 Effusion, right knee (principal); I10 Essential (primary) hypertension; E78.5 Hyperlipidemia, unspecified; G43.909 Migraine, unspecified, not intractable, without status migrainosus; E11.9 Type 2 diabetes mellitus without complications; Z79.4 Long term (current) use of insulin; Z79.899 Other long term (current) drug therapy; Z88.8 Allergy status to other drugs, medicaments and biological substances; Z88.0 Allergy status to penicillin; Z88.1 Allergy status to other antibiotic agents; Z88.6 Allergy status to analgesic agent

== ENCOUNTER 2021-03-31 06:00 | Emergency (ER) | payer MEDICARE ==
[~2021-03-31] VITALS: Ht 167.6 cm; Wt 101.4 kg
[2021-03-31] MEDS ORDERED: PREGABALIN 75 MG CAP(LYRICA) PO ONE (06:30)
[2021-03-31] MEDS ORDERED: PERCOCET 5MG/325MG TAB PO ONE (06:30)
--- NOTE | 2021-03-31 07:48 | REPVR ---
PROCEDURE INFORMATION: Exam: XR Right Knee Exam date and time: 03/31/2021 6:55 AM Age: 55 years old Clinical indication: Pain; Knee; Right; Additional info: Worsening knee pain, HX crps, no new injury TECHNIQUE: Imaging protocol: XR Right knee. Views: 4 or more views. COMPARISON: CR Knee, complete 08/31/2019 5:40 PM FINDINGS: Bones/joints: There is tibiofemoral , medial more than lateral, joint space narrowing with marginal osteophytes. There is patellofemoral degenerative and productive changes. There is prominence of the tibial spines. Soft tissues: Normal. IMPRESSION: 1. No fracture or dislocation. 2. Tibiofemoral and patellofemoral DJD. 3. Prominence of the tibial spines likely due to chronic enthesopathy. Electronically signed by: Ministerio Acuna On 03/31/2021 07:47:35 AM
[2021-03-31 08:12] VITALS: BP 164/85
== END 2021-03-31 08:15 | disposition home or self-care (01) ==
LOC: M ED 06:00
DX: M25.561 Pain in right knee (principal); M17.11 Unilateral primary osteoarthritis, right knee; M22.2X1 Patellofemoral disorders, right knee; E11.9 Type 2 diabetes mellitus without complications; I10 Essential (primary) hypertension; E78.5 Hyperlipidemia, unspecified; F32.9 Major depressive disorder, single episode, unspecified; F41.9 Anxiety disorder, unspecified; G47.33 Obstructive sleep apnea (adult) (pediatric); E03.9 Hypothyroidism, unspecified; G90.50 Complex regional pain syndrome I, unspecified; Z79.4 Long term (current) use of insulin; Z79.899 Other long term (current) drug therapy; Z88.8 Allergy status to other drugs, medicaments and biological substances; Z88.0 Allergy status to penicillin; Z88.1 Allergy status to other antibiotic agents; Z88.6 Allergy status to analgesic agent

== ENCOUNTER → 2021-04-21 | Outpatient (CLI) | payer MEDICARE ==
[2021-04-21 08:54] LABS: FREE T4 0.92 NG/DL (0.76-1.46); THYROID STIMULATING HORMONE 3.24 uIU/ML (0.358-3.740)
[2021-04-21 10:37] LABS: HEMOGLOBIN A1c 12.9 %
[2021-04-24 16:08] LABS: METANEPHRINE PLASMA 25.2 pg/mL (0.0-88.0); NORMETANEPHRINE PLASMA 69.2 pg/mL (0.0-136.8)
== END ==
LOC: M LAB 07:35
PROVIDERS: ATTEND Nurse Practitioner Family
DX: E11.65 Type 2 diabetes mellitus with hyperglycemia (principal)

== ENCOUNTER 2021-05-30 09:22 | Emergency (ER) | payer MEDICARE ==
[~2021-05-30] VITALS: Ht 167.6 cm; Wt 101.4 kg
[2021-05-30] MEDS ORDERED: FAMOTIDINE INJ 20MG/2ML VIAL (S0028 PER 1) IVP ONE (11:40)
[2021-05-30] MEDS ORDERED: NS 1,000 ML IV ONE (11:40)
[2021-05-30] MEDS ORDERED: GI COCKTAIL 50ML BTL(HYOSCYAMINE/MAALOX/LIDOCAINE VISCOUS)(1:3:1) PO ONE (11:40)
[2021-05-30] MEDS ORDERED: PROMETHAZINE INJ 25 MG/ML VIAL (J2550) IV ONE (11:40)
[2021-05-30 12:20] LABS: BASO # 0.1 10^3/uL (0.0-0.2); BASO % 0.5 % (0.0-1.0); EOS # 0.1 10^3/uL (0.0-0.5); EOS % 0.7 % (0.0-3.0); HEMATOCRIT 48.7 % (36.0-47.0); HEMOGLOBIN 16.6 g/dl (12.0-15.5); LYMPH # 2.2 10^3/uL (1.5-5.0); LYMPH % 22.7 % (24.0-44.0); MEAN CORPUSCULAR HGB CONC 34.1 g/dl (32.0-36.5); MEAN CORPUSCULAR VOLUME 87.9 fl (80.0-96.0); MONO # 0.5 10^3/uL (0.0-0.8); MONO % 5.2 % (2.0-8.0); NEUTROPHILS # 6.8 10^3/uL (1.5-8.5); NEUTROPHILS % 70.6 % (36.0-66.0); PLATELET COUNT, AUTOMATED 173 10^3/uL (150-450); RED BLOOD COUNT 5.54 10^6/uL (4.00-5.40); WHITE BLOOD COUNT 9.6 10^3/uL (4.0-10.0)
[2021-05-30] MEDS ORDERED: ISOVUE-370 76% 100ML VIAL As Ordered ONE (12:25)
[2021-05-30 12:53] LABS: ALBUMIN 3.6 GM/DL (3.2-5.2); BILIRUBIN,DIRECT 0.2 MG/DL (0.0-0.2); BILIRUBIN,TOTAL 0.8 MG/DL (0.2-1.0); TOTAL PROTEIN 6.9 GM/DL (6.4-8.2)
--- NOTE | 2021-05-30 13:06 | REP ---
INDICATION: epigastric pain COMPARISON: 10/10/2020. TECHNIQUE: CT Scan of the abdomen and pelvis was performed with intravenous administration of 100 cc of Isovue 370, without oral contrast. Sagittal and coronal reconstruction images are performed. FINDINGS: Lung bases: Unremarkable. Liver: There is a hepatomegaly, the length of the liver is approximately 20 cm. Gallbladder: Prior cholecystectomy. Spleen: Normal. Adrenals: Normal. Pancreas: Normal. Kidneys: Normal. Small and large bowel: Unremarkable. Free fluid: None. Abdominal aorta: No aneurysm or dissection. Adenopathy: None. Appendix: Not inflamed. Osseous structures: There are degenerative changes of the spine without compression deformity. Pelvis: No mass. Prior hysterectomy. IMPRESSION: No acute pathology identified in the abdomen and pelvis. <Electronically signed by Len Ceron > 05/30/21 [id number]
[2021-05-30] MEDS ORDERED: MYLA1SUS PO (14:08)
[2021-05-30] MEDS ORDERED: MIRA3350 PO (14:08)
[2021-05-30 14:23] VITALS: BP 129/98
== END 2021-05-30 14:36 | disposition home or self-care (01) ==
LOC: M ED 09:22
DX: K59.00 Constipation, unspecified (principal); R10.13 Epigastric pain; I10 Essential (primary) hypertension; E78.5 Hyperlipidemia, unspecified; K21.9 Gastro-esophageal reflux disease without esophagitis; G47.33 Obstructive sleep apnea (adult) (pediatric); F41.9 Anxiety disorder, unspecified; F32.9 Major depressive disorder, single episode, unspecified; Z86.718 Personal history of other venous thrombosis and embolism; E03.9 Hypothyroidism, unspecified; E66.9 Obesity, unspecified; F17.200 Nicotine dependence, unspecified, uncomplicated; Z79.4 Long term (current) use of insulin; Z79.899 Other long term (current) drug therapy; Z88.8 Allergy status to other drugs, medicaments and biological substances; Z88.0 Allergy status to penicillin; Z88.1 Allergy status to other antibiotic agents; Z88.6 Allergy status to analgesic agent
CPT/HCPCS: 74177; 80047; 80076; 83605; 83690; 85025; 96361; 96374; 96375; 99284; Q9967

== ENCOUNTER → 2021-06-24 | Outpatient (CLI) | payer MEDICARE ==
[~2021-06-24] MED LIST changes: +MIRA3350 PO; +MYLA1SUS PO
--- NOTE | 2021-06-24 09:18 | REP ---
INDICATION: HEPATOMEGALY TANG RUQ ABD PAIN. COMPARISON: 02/18/2021. TECHNIQUE: Real-time sonographic evaluation of right upper quadrant performed. FINDINGS: There has been a prior cholecystectomy.. There is no intrahepatic or extrahepatic biliary dilatation, common bile duct measures 6 mm in maximum diameter. There is increased echotexture of the liver diffusely compatible with diffuse fibrofatty infiltration. No focal mass is seen. The liver is again noted to be enlarged, with a length of 19.5 cm. Visualized pancreas is grossly unremarkable, not optimally seen due to overlying bowel gas. The right kidney demonstrates no hydronephrosis, with a normal size of 13.4 cm in length. No free fluid is seen. IMPRESSION: Stable exam. <Electronically signed by Len Ceron > 06/24/21 [id number]
== END ==
LOC: M RAD 07:26
PROVIDERS: ATTEND Physician Assistant Medical
DX: R16.0 Hepatomegaly, not elsewhere classified (principal); K75.81 Nonalcoholic steatohepatitis (NASH); R10.11 Right upper quadrant pain

== ENCOUNTER → 2021-06-24 | Outpatient (CLI) | payer MEDICARE ==
--- NOTE | 2021-06-24 16:51 | REP ---
INDICATION: ABN FINDINGS LUNG FIELD COMPARISON: Multiple the latest 06/10/2020 TECHNIQUE: Standard helical technique without intravenous contrast FINDINGS: The mediastinum and pulmonary tessa are unchanged. No mass or adenopathy has developed. There are no pleural or pericardial effusions. There is no significant change in appearance of the imaged upper abdomen or imaged osseous structures. Evaluation of the lung hodges shows a stable 4 mm sized pleural base nodule in the right middle lobe. The small cavitary lesion seen in the right upper lobe is unchanged. There is an additional stable nodule in the right upper lobe. There is a 4 mm size nodule in the inferior lingula which was likely previously obscured by subsegmental atelectasis. There is a tiny amount of degree debris in the bronchus intermedius and bronchus to the left upper lobe likely a small amount of mucus. IMPRESSION: 1. Stable nodules and other lung field findings as described above. Follow-up as per the revised Fleischner society criteria. 2. Stable tiny cavitary right upper lobe lesion. 3. Likely a small amount of mucoid debris in the bronchus intermedius and bronchus to the left upper lobe. 4. Other findings as described above. <Electronically signed by Joao Escalera > 06/24/21 [id number]
== END ==
LOC: M RAD 07:32
PROVIDERS: ATTEND Internal Medicine Pulmonary Disease
DX: R91.8 Other nonspecific abnormal finding of lung field (principal)

== ENCOUNTER 2021-08-21 11:34 | Emergency (ER) | payer MEDICARE ==
[~2021-08-21] VITALS: Ht 167.6 cm; Wt 112.0 kg
[2021-08-21 11:36] VITALS: BP 170/90
[2021-08-22] MEDS ORDERED: METR-265 PO (14:33)
[2021-08-22] MEDS ORDERED: PROM50TA4 PO (14:35)
== END 2021-08-21 13:07 | disposition left against medical advice (07) ==
LOC: M ED 11:34
DX: Z53.21 Procedure and treatment not carried out due to patient leaving prior to being seen by health care provider (principal)

== ENCOUNTER 2021-08-22 11:21 | Emergency (ER) | payer MEDICARE ==
[~2021-08-22] VITALS: Ht 167.6 cm; Wt 102.7 kg
[2021-08-22 12:16] LABS: BASO # 0.1 10^3/uL (0.0-0.2); BASO % 0.5 % (0.0-1.0); EOS # 0.1 10^3/uL (0.0-0.5); EOS % 1.1 % (0.0-3.0); HEMOGLOBIN 17.1 g/dl (12.0-15.5); LYMPH # 2.5 10^3/uL (1.5-5.0); LYMPH % 21.1 % (24.0-44.0); MEAN CORPUSCULAR HEMOGLOBIN 29.1 pg (27.0-33.0); MEAN CORPUSCULAR HGB CONC 34.2 g/dl (32.0-36.5); MEAN CORPUSCULAR VOLUME 85.2 fl (80.0-96.0); MONO # 0.5 10^3/uL (0.0-0.8); MONO % 4.4 % (2.0-8.0); NEUTROPHILS # 8.7 10^3/uL (1.5-8.5); NEUTROPHILS % 72.6 % (36.0-66.0); PLATELET COUNT, AUTOMATED 185 10^3/uL (150-450); RED BLOOD COUNT 5.87 10^6/uL (4.00-5.40)
[2021-08-22] MEDS ORDERED: NS 1,000 ML IV ONE (12:50)
[2021-08-22] MEDS ORDERED: PANTOPRAZOLE 40MG VIAL (C9113 PER 1) IV ONE (12:50)
[2021-08-22] MEDS ORDERED: MORPHINE 4 MG/ML 1ML VIAL/SYRINGE (J2270) IV ONE (12:50)
[2021-08-22 12:54] LABS: ALBUMIN 3.9 GM/DL (3.2-5.2); ALT/SGPT 14 U/L (12-78); BILIRUBIN,DIRECT 0.2 MG/DL (0.0-0.2); BILIRUBIN,TOTAL 0.7 MG/DL (0.2-1.0); BLOOD UREA NITROGEN 10 MG/DL (7-18); CALCIUM LEVEL 9.7 MG/DL (8.5-10.1); CARBON DIOXIDE LEVEL 29 MEQ/L (21-32); CHLORIDE LEVEL 99 MEQ/L (98-107); GLOMERULAR FILTRATION RATE > 60.0 (>51); GLUCOSE, FASTING 466 MG/DL (70-100); LIPASE 40 U/L (73-393); POTASSIUM SERUM 4.6 MEQ/L (3.5-5.1); SODIUM LEVEL 135 MEQ/L (136-145); TOTAL PROTEIN 7.2 GM/DL (6.4-8.2)
[2021-08-22] MEDS ORDERED: ISOVUE-370 76% 100ML VIAL As Ordered ONE (13:02)
[2021-08-22] MEDS ORDERED: PROMETHAZINE INJ 25 MG/ML VIAL (J2550) IV ONE (13:50)
--- NOTE | 2021-08-22 13:58 | REP ---
INDICATION: right sided abd pain. COMPARISON: 05/30/2021 TECHNIQUE: Axial contrast-enhanced images from the lung bases to the pubic symphysis using 100 cc Isovue 370 intravenous contrast material. Coronal and sagittal reformations obtained. This CT examination was performed using the following dose reduction techniques: Automated exposure control, adjustment of mA and/or kv according to the patient's size, and the use of iterative reconstruction technique. FINDINGS: Lung bases are clear. Liver again demonstrates mild hepatomegaly and hepatosteatosis without focal hepatic lesion identified. Spleen, pancreas, bilateral adrenal glands and kidneys are normal. Evaluation of the enteric system demonstrates no definite acute process. However, subtle colitis involving the ascending/hepatic flexure of the colon cannot be excluded. There is no evidence for bowel obstruction or free air/free fluid to suggest perforation. Scattered sigmoid diverticula noted without acute diverticulitis. Pelvis demonstrates normal bladder and prior hysterectomy. There is a small 1.4 cm soft tissue nodule in the anterior right hemipelvis (image 119) which remains stable through 2016 and likely represents lymph node. No ascites. No free air. No intraperitoneal or retroperitoneal adenopathy. Abdominal aorta and vasculature appear normal. Musculoskeletal structures demonstrate degenerative changes without acute osseous abnormality. IMPRESSION: 1. Cannot exclude a subtle colitis involving the ascending/hepatic flexure. 2. Continued hepatomegaly and hepatosteatosis. 3. No further acute abdominopelvic pathology appreciated. <Electronically signed by Wm Ovalle > 08/22/21 [id number]
[2021-08-22] MEDS ORDERED: METR-265 PO (14:33)
[2021-08-22] MEDS ORDERED: PROM50TA4 PO (14:35)
[2021-08-22 15:00] VITALS: BP 160/80
[2021-08-25] MEDS ORDERED: AZIT-12 PO (12:14)
== END 2021-08-22 15:00 | disposition home or self-care (01) ==
LOC: M ED 11:21
DX: E11.65 Type 2 diabetes mellitus with hyperglycemia (principal); K52.9 Noninfective gastroenteritis and colitis, unspecified; I10 Essential (primary) hypertension; F41.9 Anxiety disorder, unspecified; F32.9 Major depressive disorder, single episode, unspecified; E03.9 Hypothyroidism, unspecified; G47.33 Obstructive sleep apnea (adult) (pediatric); F17.200 Nicotine dependence, unspecified, uncomplicated; Z79.4 Long term (current) use of insulin; Z79.899 Other long term (current) drug therapy; Z88.8 Allergy status to other drugs, medicaments and biological substances; Z88.0 Allergy status to penicillin; Z88.1 Allergy status to other antibiotic agents; Z88.6 Allergy status to analgesic agent
CPT/HCPCS: 74177; 80048; 80076; 83690; 85025; 96361; 96374; 96375; 99284; C9113; J2270; Q9967

== ENCOUNTER → 2021-08-24 | Outpatient (REF) | payer MEDICARE ==
[~2021-08-24] MED LIST changes: +AZIT-12 PO; +ISOS5TA PO; +LOSA100T45 PO; -LOSA100T50 PO; +LOSA50TA28 PO; -LOSA50TA88 PO; +METR-265 PO; +PROM50TA4 PO; +TIZA10TA PO; -TIZA4TAB4 PO
== END ==
LOC: M LAB REF 07:00
PROVIDERS: ATTEND Physician Assistant
DX: R19.7 Diarrhea, unspecified (principal)

== ENCOUNTER → 2021-09-03 | Outpatient (REF) | payer MEDICARE ==
[~2021-09-03] MED LIST changes: -ISOS5TA PO; -LOSA100T45 PO; +LOSA100T50 PO; -LOSA50TA28 PO; +LOSA50TA88 PO; -TIZA10TA PO; +TIZA4TAB4 PO
[2021-09-03 17:12] LABS: FERRITIN 170 NG/ML (8-252); IRON (FE) 98 UG/DL (50-170); PERCENT SATURATION 31.8 % (13.2-45.0); TOTAL IRON BINDING CAPACITY 308 UG/DL (250-450)
[2021-09-03 17:34] LABS: HEPATITIS B SURFACE ANTIGEN NEGATIVE (NEGATIVE)
[2021-09-03 18:01] LABS: HEPATITIS C VIRUS ABY INDEX 0.1 INDEX (<0.8)
[2021-09-03 18:02] LABS: HEPATITIS B CORE ANTIBODY IGM NEGATIVE (NEGATIVE)
== END ==
LOC: M LAB REF 16:27
PROVIDERS: ATTEND Internal Medicine
DX: R16.0 Hepatomegaly, not elsewhere classified (principal); R74.01 Elevation of levels of liver transaminase levels; Z11.59 Encounter for screening for other viral diseases

== ENCOUNTER 2021-10-13 09:27 | Emergency (ER) | payer MEDICARE ==
[~2021-10-13] VITALS: Ht 167.6 cm; Wt 100.9 kg
[~2021-10-13 09:27] MED LIST changes: +LOSA100T45 PO; -LOSA100T50 PO; +LOSA50TA28 PO; -LOSA50TA88 PO; +TIZA10TA PO; -TIZA4TAB4 PO
[2021-10-13] MEDS ORDERED: LIDOCAINE VISCOUS 2% SOLN 15ML UDC PO ONE (10:05)
[2021-10-13 10:12] LABS: BASO # 0.1 10^3/uL (0.0-0.2); BASO % 0.7 % (0.0-1.0); EOS # 0.2 10^3/uL (0.0-0.5); EOS % 2.1 % (0.0-3.0); HEMATOCRIT 46.8 % (36.0-47.0); HEMOGLOBIN 16.3 g/dl (12.0-15.5); LYMPH # 3.1 10^3/uL (1.5-5.0); LYMPH % 31.3 % (24.0-44.0); MEAN CORPUSCULAR HEMOGLOBIN 29.5 pg (27.0-33.0); MEAN CORPUSCULAR HGB CONC 34.8 g/dl (32.0-36.5); MEAN CORPUSCULAR VOLUME 84.6 fl (80.0-96.0); MONO # 0.6 10^3/uL (0.0-0.8); MONO % 6.5 % (2.0-8.0); NEUTROPHILS # 5.8 10^3/uL (1.5-8.5); NEUTROPHILS % 59.3 % (36.0-66.0); PLATELET COUNT, AUTOMATED 191 10^3/uL (150-450); RED BLOOD COUNT 5.53 10^6/uL (4.00-5.40); WHITE BLOOD COUNT 9.8 10^3/uL (4.0-10.0)
[2021-10-13 10:30] LABS: INR 0.96; PROTHROMBIN TIME 13.2 SECONDS (12.7-14.5)
[2021-10-13 10:31] LABS: PARTIAL THROMBOPLASTIN TIME 28.5 SECONDS (25.9-37.0)
[2021-10-13 10:39] LABS: CK-MB VALUE MASS 1.1 NG/ML (<3.6); MB/CK RELATIVE INDEX 4.07 (< OR =4)
[2021-10-13 11:06] LABS: ALBUMIN 3.4 GM/DL (3.2-5.2); ALT/SGPT 11 U/L (12-78); BILIRUBIN,DIRECT 0.1 MG/DL (0.0-0.2); BILIRUBIN,TOTAL 0.3 MG/DL (0.2-1.0); BLOOD UREA NITROGEN 9 MG/DL (7-18); C REACTIVE PROTEIN QUANTITATIV 1.07 MG/DL (0.00-0.30); CALCIUM LEVEL 8.9 MG/DL (8.5-10.1); CARBON DIOXIDE LEVEL 29 MEQ/L (21-32); CHLORIDE LEVEL 95 MEQ/L (98-107); CREATININE FOR GFR 0.98 MG/DL (0.55-1.30); GLOMERULAR FILTRATION RATE > 60.0 (>51); GLUCOSE, FASTING 493 MG/DL (70-100); LIPASE 36 U/L (73-393); NT-PRO BNP 223 PG/ML (<125); POTASSIUM SERUM 4.1 MEQ/L (3.5-5.1); SODIUM LEVEL 131 MEQ/L (136-145); TOTAL PROTEIN 6.7 GM/DL (6.4-8.2)
[2021-10-13] MEDS ORDERED: NS 1,000 ML IV ONE (11:20)
[2021-10-13 11:32] LABS: ERYTHROCYTE SEDIMENTATION RATE 7 mm/hr (0-30)
[2021-10-13] MEDS ORDERED: NITROGLYCERIN 2% OINT 1 GM *U/D* PKT TOP ONE (11:35)
[2021-10-13 11:38] LABS: CK-MB VALUE MASS 1.2 NG/ML (<3.6)
[2021-10-13 11:38] LABS: RSV AMPLIFICATION NEGATIVE (NEGATIVE)
[2021-10-13] MEDS ORDERED: ISOVUE-370 76% 100ML VIAL As Ordered ONE (11:54)
[2021-10-13 13:46] VITALS: BP 139/78
[2021-10-13] MEDS ORDERED: ISOS5TA PO (13:52)
== END 2021-10-13 14:27 | disposition home or self-care (01) ==
LOC: M ED 09:27
DX: R07.89 Other chest pain (principal); K21.9 Gastro-esophageal reflux disease without esophagitis; E11.9 Type 2 diabetes mellitus without complications; I10 Essential (primary) hypertension; E78.5 Hyperlipidemia, unspecified; E03.9 Hypothyroidism, unspecified; G47.33 Obstructive sleep apnea (adult) (pediatric); K31.84 Gastroparesis; Z86.718 Personal history of other venous thrombosis and embolism; F17.200 Nicotine dependence, unspecified, uncomplicated; Z79.4 Long term (current) use of insulin; Z79.899 Other long term (current) drug therapy; Z88.8 Allergy status to other drugs, medicaments and biological substances; Z88.1 Allergy status to other antibiotic agents; Z88.6 Allergy status to analgesic agent
CPT/HCPCS: 71045; 71275; 74177; 80048; 80076; 82550; 82553; 83690; 83880; 83930; 84443; 84484; 85025; 85610; 85652; 85730; 86140; 87040; 87631; 93005; 93041; 94760; 96360; 96361; 99285; Q9967

== ENCOUNTER → 2021-11-14 | Outpatient (CLI) | payer MEDICARE, OTHER ==
[~2021-11-14] MED LIST changes: +ISOS5TA PO
== END ==
LOC: M LAB 09:19
PROVIDERS: ATTEND Physician Assistant Medical
DX: R16.0 Hepatomegaly, not elsewhere classified (principal)

== ENCOUNTER → 2021-11-24 | Outpatient (REF) | payer MEDICARE ==
[2021-11-25 08:10] LABS: LDL DIRECT 118 mg/dL (0-99)
== END ==
LOC: M LAB REF 12:11
PROVIDERS: ATTEND Family Medicine
DX: E78.5 Hyperlipidemia, unspecified (principal)

== ENCOUNTER 2021-12-05 10:24 | Emergency (ER) | payer MEDICARE ==
[~2021-12-05] VITALS: Ht 167.6 cm; Wt 76.6 kg
[2021-12-05 10:26] VITALS: BP 133/100
== END 2021-12-05 13:54 | disposition left against medical advice (07) ==
LOC: M ED 10:24
DX: Z53.21 Procedure and treatment not carried out due to patient leaving prior to being seen by health care provider (principal)

== ENCOUNTER 2021-12-07 07:37 | Emergency (ER) | payer MEDICARE ==
[~2021-12-07] VITALS: Ht 167.6 cm; Wt 98.2 kg
[2021-12-07 07:48] VITALS: BP 160/96
== END 2021-12-07 09:01 | disposition home or self-care (01) ==
LOC: M ED 07:37
DX: M75.111 Incomplete rotator cuff tear or rupture of right shoulder, not specified as traumatic (principal); E11.9 Type 2 diabetes mellitus without complications; M51.9 Unspecified thoracic, thoracolumbar and lumbosacral intervertebral disc disorder; F32.9 Major depressive disorder, single episode, unspecified; F41.9 Anxiety disorder, unspecified; E78.5 Hyperlipidemia, unspecified; G43.909 Migraine, unspecified, not intractable, without status migrainosus; G47.33 Obstructive sleep apnea (adult) (pediatric); K21.9 Gastro-esophageal reflux disease without esophagitis; R91.1 Solitary pulmonary nodule; E03.9 Hypothyroidism, unspecified; K52.9 Noninfective gastroenteritis and colitis, unspecified; F17.200 Nicotine dependence, unspecified, uncomplicated; Z79.4 Long term (current) use of insulin; Z79.891 Long term (current) use of opiate analgesic; Z79.899 Other long term (current) drug therapy; Z88.8 Allergy status to other drugs, medicaments and biological substances; Z88.0 Allergy status to penicillin; Z88.1 Allergy status to other antibiotic agents; Z88.6 Allergy status to analgesic agent

== ENCOUNTER → 2021-12-12 | Outpatient (REF) | payer MEDICARE ==
[~2021-12-12] MED LIST changes: +ISOS5TA; +NITR0.4S14
== END ==
LOC: M LAB REF 23:31
PROVIDERS: ATTEND Physician Assistant
DX: R50.9 Fever, unspecified (principal)

== ENCOUNTER 2021-12-22 08:00 | Emergency (ER) | payer MEDICARE ==
[~2021-12-22] VITALS: Ht 167.6 cm; Wt 100.0 kg
[~2021-12-22 08:00] MED LIST changes: -ISOS5TA; -NITR0.4S14
[2021-12-22] MEDS ORDERED: NS 1,000 ML IV ONE (09:50)
[2021-12-22 10:08] LABS: URINE PREG TEST NEGATIVE (NEGATIVE)
[2021-12-22] MEDS ORDERED: PROMETHAZINE 25MG/ML 1ML VIAL IM ONE (10:20)
[2021-12-22 10:25] LABS: BASO # 0.1 10^3/uL (0.0-0.2); BASO % 0.5 % (0.0-1.0); EOS # 0.1 10^3/uL (0.0-0.5); EOS % 1.1 % (0.0-3.0); HEMATOCRIT 51.8 % (36.0-47.0); LYMPH # 2.2 10^3/uL (1.5-5.0); LYMPH % 21.4 % (24.0-44.0); MEAN CORPUSCULAR HEMOGLOBIN 29.6 pg (27.0-33.0); MEAN CORPUSCULAR VOLUME 87.2 fl (80.0-96.0); MONO # 0.5 10^3/uL (0.0-0.8); MONO % 4.8 % (2.0-8.0); NEUTROPHILS # 7.3 10^3/uL (1.5-8.5); NEUTROPHILS % 71.9 % (36.0-66.0); PLATELET COUNT, AUTOMATED 174 10^3/uL (150-450); RED BLOOD COUNT 5.94 10^6/uL (4.00-5.40); WHITE BLOOD COUNT 10.2 10^3/uL (4.0-10.0)
[2021-12-22 10:32] LABS: HEMOGLOBIN 17.6 g/dl (12.0-15.5)
[2021-12-22 10:54] LABS: BILIRUBIN,DIRECT 0.1 MG/DL (0.0-0.2); BILIRUBIN,TOTAL 0.7 MG/DL (0.2-1.0); TOTAL PROTEIN 7.9 GM/DL (6.4-8.2)
[2021-12-22 12:00] VITALS: BP 187/89
[2021-12-22] MEDS ORDERED: PROM12.56 PO (12:04)
== END 2021-12-22 12:14 | disposition left against medical advice (07) ==
LOC: M ED 08:00
DX: E11.65 Type 2 diabetes mellitus with hyperglycemia (principal); R10.9 Unspecified abdominal pain; E86.0 Dehydration; R11.2 Nausea with vomiting, unspecified; E03.9 Hypothyroidism, unspecified; I10 Essential (primary) hypertension; Z86.718 Personal history of other venous thrombosis and embolism; F41.9 Anxiety disorder, unspecified; F32.A Depression, unspecified; F17.200 Nicotine dependence, unspecified, uncomplicated; Z88.1 Allergy status to other antibiotic agents; Z88.8 Allergy status to other drugs, medicaments and biological substances; Z79.899 Other long term (current) drug therapy; Z79.4 Long term (current) use of insulin
CPT/HCPCS: 71045; 80047; 80076; 83690; 84703; 85025; 93005; 93041; 96360; 96361; 96372; 99284; J2550

== ENCOUNTER → 2022-01-10 | Outpatient (CLI) | payer MEDICARE ==
[2022-01-10 10:37] LABS: HEMATOCRIT 47.5 % (36.0-47.0); HEMOGLOBIN 16.2 g/dl (12.0-15.5); MEAN CORPUSCULAR HEMOGLOBIN 29.7 pg (27.0-33.0); MEAN CORPUSCULAR HGB CONC 34.1 g/dl (32.0-36.5); PLATELET COUNT, AUTOMATED 180 10^3/uL (150-450); RED BLOOD COUNT 5.46 10^6/uL (4.00-5.40); WHITE BLOOD COUNT 8.3 10^3/uL (4.0-10.0)
[2022-01-10 11:06] LABS: ALBUMIN 3.4 GM/DL (3.2-5.2); BILIRUBIN,DIRECT 0.1 MG/DL (0.0-0.2); BILIRUBIN,TOTAL 0.5 MG/DL (0.2-1.0); PERCENT SATURATION 19.4 % (13.2-45.0); TOTAL PROTEIN 7.2 GM/DL (6.4-8.2)
== END ==
LOC: M LAB 09:34
PROVIDERS: ATTEND Physician Assistant Medical
DX: E83.119 Hemochromatosis, unspecified (principal)

== ENCOUNTER → 2022-02-26 | Outpatient (REF) | payer MEDICARE ==
[~2022-02-26] MED LIST changes: +ISOS5TA; +NITR0.4S14
[2022-02-26 18:17] LABS: C REACTIVE PROTEIN QUANTITATIV 0.81 MG/DL (0.00-0.30); RHEUMATOID FACTOR QUANT < 10.0 IU/ML (<15.0); URIC ACID 1.6 MG/DL (2.6-6.0)
[2022-03-03 04:10] LABS: ANA (HEP2) Negative (.); CYCLIC CITRULLINATED PEPTIDE 8 units (0-19)
== END ==
LOC: M LAB REF 17:06
PROVIDERS: ATTEND Family Medicine
DX: M25.511 Pain in right shoulder (principal)

== ENCOUNTER → 2022-03-04 | Outpatient (CLI) | payer MEDICARE | LOC: M WHC 08:17 | PROVIDERS: ATTEND Physician Assistant Medical | DX: R10.11 Right upper quadrant pain (principal); R16.0 Hepatomegaly, not elsewhere classified; Z90.49 Acquired absence of other specified parts of digestive tract; R14.0 Abdominal distension (gaseous) ==

== ENCOUNTER 2022-03-16 19:09 | Emergency (ER) | payer MEDICARE ==
[~2022-03-16] VITALS: Ht 167.6 cm; Wt 99.5 kg
[2022-03-16 19:10] VITALS: BP 130/77
== END 2022-03-16 19:52 | disposition left against medical advice (07) ==
LOC: M ED 19:09
DX: Z53.21 Procedure and treatment not carried out due to patient leaving prior to being seen by health care provider (principal)

== ENCOUNTER → 2022-04-20 | Outpatient (CLI) | payer MEDICARE ==
[~2022-04-20] MED LIST changes: +DICL20GE TP; +LOPR1TAB7 PO; +LORA-674 PO; +ZOLP10TA2 PO
== END ==
LOC: M PLARAD 12:44
PROVIDERS: ATTEND Family Medicine
DX: R91.8 Other nonspecific abnormal finding of lung field (principal); Z53.9 Procedure and treatment not carried out, unspecified reason

== ENCOUNTER → 2022-04-28 | Outpatient (CLI) | payer MEDICARE | LOC: M LABSMTC 10:17 | PROVIDERS: ATTEND Anesthesiology | DX: Z01.818 Encounter for other preprocedural examination (principal); Z11.52 Encounter for screening for COVID-19 ==

== ENCOUNTER 2022-04-29 07:14 | Day surgery (SDC) | payer MEDICARE ==
[~2022-04-29] VITALS: Ht 167.6 cm; Wt 105.2 kg
[~2022-04-29 07:14] MED LIST changes: +BSS IRRIG/VANCO(10MG)/TOBRA(5MG)/EPINEPH(1:1000-0.5CC)500ML BAG-ORONLY IR ONE; +CEFUROXIME 1MG/0.1ML INTRACAMERAL INJ As Ordered ONE; +LIDOCAINE 1% SDV 5ML VIAL As Ordered ONE; +LIDOCAINE 3.5 % 1ML OPHTH TOPICAL GEL OU ONE; +PHENYLEPHRINE HCL 10 % OPHTH. SOL 5ML OS PRN
[2022-04-29] MEDS: PHENYLEPHRINE 2.5% OPHTH SOL 2ML OS SCH ×3 (07:45→08:01)
[2022-04-29] MEDS: CYCLOPENTOLATE 1% OPHTH SOLN 2 ML BTL OS SCH ×3 (07:45→08:01)
[2022-04-29] MEDS: TROPICAMIDE 1% OPHTH SOLN 2ML OS SCH ×3 (07:45→08:01)
[2022-04-29] MEDS ORDERED: MIDAZOLAM INJ 2MG/2ML VIAL (J2250 PER 1MG) As Ordered ONE (08:37)
[2022-04-29] MEDS ORDERED: fentaNYL 100 MCG/2 ML INJECTION As Ordered ONE (08:38)
[2022-04-29] MEDS ORDERED: ACETAMINOPHEN 325 MG TAB PO PRN (09:00)
[2022-04-29] MEDS ORDERED: acetaZOLAMIDE 500MG ER CAP PO ONE (09:00)
[2022-04-29 09:26] VITALS: BP 136/81
[2022-04-29] MEDS ORDERED: acetaZOLAMIDE 250MG TAB PO STA (09:34)
== END 2022-04-29 09:57 | disposition home or self-care (01) ==
LOC: M SDC 07:14
PROVIDERS: ATTEND Ophthalmology
DX: H25.12 Age-related nuclear cataract, left eye (principal); I10 Essential (primary) hypertension; K21.9 Gastro-esophageal reflux disease without esophagitis; G43.909 Migraine, unspecified, not intractable, without status migrainosus; F41.9 Anxiety disorder, unspecified; F32.A Depression, unspecified; Z79.02 Long term (current) use of antithrombotics/antiplatelets; Z79.4 Long term (current) use of insulin; Z79.899 Other long term (current) drug therapy; E11.9 Type 2 diabetes mellitus without complications; E03.9 Hypothyroidism, unspecified; Z86.718 Personal history of other venous thrombosis and embolism; Z88.8 Allergy status to other drugs, medicaments and biological substances; Z88.0 Allergy status to penicillin; Z79.51 Long term (current) use of inhaled steroids; F17.210 Nicotine dependence, cigarettes, uncomplicated
CPT/HCPCS: 66984; J0697; J2250; J3010; V2632

== ENCOUNTER 2022-05-13 17:15 | Emergency (ER) | payer MEDICARE ==
[~2022-05-13] VITALS: Ht 167.6 cm; Wt 102.6 kg
[~2022-05-13 17:15] MED LIST changes: -BSS IRRIG/VANCO(10MG)/TOBRA(5MG)/EPINEPH(1:1000-0.5CC)500ML BAG-ORONLY IR ONE; -CEFUROXIME 1MG/0.1ML INTRACAMERAL INJ As Ordered ONE; -LIDOCAINE 1% SDV 5ML VIAL As Ordered ONE; -LIDOCAINE 3.5 % 1ML OPHTH TOPICAL GEL OU ONE; -PHENYLEPHRINE HCL 10 % OPHTH. SOL 5ML OS PRN
[2022-05-13 17:17] VITALS: BP 156/80
[2022-05-13 18:57] LABS: APPEARANCE, URINE MANUAL CLEAR (CLEAR); COLOR, URINE MANUAL YELLOW (YELLOW)
[2022-05-13 18:58] LABS: BILIRUBIN, URINE MANUAL NEGATIVE (NEGATIVE); BLOOD URINE MANUAL NEGATIVE (NEGATIVE); GLUCOSE, URINE (UA) MANUAL 4+(1000 MG/DL) mg/dL (NEGATIVE); KETONE, URINE MANUAL NEGATIVE (NEGATIVE); LEUKOCYTE ESTERASE, URINE MAN POSITIVE (NEGATIVE); NITRITE, URINE MANUAL NEGATIVE (NEGATIVE); PROTEIN, URINE MANUAL NEGATIVE (NEGATIVE); UROBILINOGEN, URINE MANUAL NORMAL (NORMAL)
[2022-05-13] MEDS ORDERED: GI COCKTAIL 50ML BTL(HYOSCYAMINE/MAALOX/LIDOCAINE VISCOUS)(1:3:1) PO ONE (19:05)
[2022-05-13 19:06] LABS: BACTERIA, URINE SMALL AMOUNT; HYALINE CAST, URINE NONE SEEN /lpf (0-1); RBC, URINE NONE SEEN /hpf (0-3); SQUAMOUS EPITHELIAL CELL URINE SMALL AMOUNT /hpf (SMALL AMT)
[2022-05-13 19:16] LABS: BASO # 0.1 10^3/uL (0.0-0.2); BASO % 0.7 % (0.0-1.0); EOS # 0.1 10^3/uL (0.0-0.5); EOS % 0.9 % (0.0-3.0); HEMATOCRIT 52.2 % (36.0-47.0); HEMOGLOBIN 17.2 g/dl (12.0-15.5); LYMPH # 2.3 10^3/uL (1.5-5.0); LYMPH % 25.7 % (24.0-44.0); MEAN CORPUSCULAR HEMOGLOBIN 28.4 pg (27.0-33.0); MEAN CORPUSCULAR VOLUME 86.1 fl (80.0-96.0); MONO # 0.5 10^3/uL (0.0-0.8); MONO % 5.1 % (2.0-8.0); NEUTROPHILS # 5.9 10^3/uL (1.5-8.5); NEUTROPHILS % 67.3 % (36.0-66.0); PLATELET COUNT, AUTOMATED 185 10^3/uL (150-450); RED BLOOD COUNT 6.06 10^6/uL (4.00-5.40); WHITE BLOOD COUNT 8.8 10^3/uL (4.0-10.0)
[2022-05-13] MEDS ORDERED: NS 1,000 ML IV ONE (19:20)
[2022-05-13] MEDS ORDERED: PROMETHAZINE 25MG/ML 1ML VIAL IV ONE (19:45)
[2022-05-13 19:48] LABS: ALBUMIN 3.9 GM/DL (3.2-5.2); ALT/SGPT 10 U/L (12-78); BILIRUBIN,DIRECT 0.2 MG/DL (0.0-0.2); BILIRUBIN,TOTAL 0.8 MG/DL (0.2-1.0); BLOOD UREA NITROGEN 9 MG/DL (7-18); CALCIUM LEVEL 9.6 MG/DL (8.5-10.1); CARBON DIOXIDE LEVEL 29 MEQ/L (21-32); CHLORIDE LEVEL 100 MEQ/L (98-107); CREATININE FOR GFR 0.84 MG/DL (0.55-1.30); GLOMERULAR FILTRATION RATE > 60.0 (>51); GLUCOSE, FASTING 347 MG/DL (70-100); LIPASE 47 U/L (73-393); POTASSIUM SERUM 4.2 MEQ/L (3.5-5.1); SODIUM LEVEL 135 MEQ/L (136-145); TOTAL PROTEIN 7.8 GM/DL (6.4-8.2)
[2022-05-13] MEDS ORDERED: ANEXSIA, NORCO 7.5MG/325MG TABLET(HYDROCODONE/APAP) PO ONE (20:00)
[2022-05-13] MEDS ORDERED: MORPHINE 30 MG SA TAB PO ONE (20:00)
[2022-05-13 20:17] LABS: CK-MB VALUE MASS 1.2 NG/ML (<3.6); MB/CK RELATIVE INDEX 3.08 (< OR =4)
[2022-05-13] MEDS ORDERED: PROM12.56 PO (21:43)
== END 2022-05-13 21:52 | disposition home or self-care (01) ==
LOC: M ED 17:15
DX: K29.00 Acute gastritis without bleeding (principal); R11.2 Nausea with vomiting, unspecified; I25.10 Atherosclerotic heart disease of native coronary artery without angina pectoris; E11.9 Type 2 diabetes mellitus without complications; I10 Essential (primary) hypertension; E07.9 Disorder of thyroid, unspecified; F32.9 Major depressive disorder, single episode, unspecified; K21.9 Gastro-esophageal reflux disease without esophagitis; M54.9 Dorsalgia, unspecified; R16.0 Hepatomegaly, not elsewhere classified; Z79.4 Long term (current) use of insulin; Z79.890 Hormone replacement therapy; Z79.899 Other long term (current) drug therapy; Z88.8 Allergy status to other drugs, medicaments and biological substances; Z88.0 Allergy status to penicillin; Z88.1 Allergy status to other antibiotic agents
CPT/HCPCS: 71045; 74176; 80048; 80076; 81000; 82550; 82553; 83690; 84484; 85025; 93005; 96361; 96374; 99284; J2550

== ENCOUNTER → 2022-05-25 | Outpatient (REF) | payer MEDICARE ==
[2022-05-25 17:44] LABS: APPEARANCE, URINE MANUAL CLEAR (CLEAR); BILIRUBIN, URINE MANUAL NEGATIVE (NEGATIVE); COLOR, URINE MANUAL LT YELLOW (YELLOW); GLUCOSE, URINE (UA) MANUAL 4+(1000 MG/DL) mg/dL (NEGATIVE); KETONE, URINE MANUAL NEGATIVE (NEGATIVE); LEUKOCYTE ESTERASE, URINE MAN NEGATIVE (NEGATIVE); NITRITE, URINE MANUAL NEGATIVE (NEGATIVE); PROTEIN, URINE MANUAL NEGATIVE (NEGATIVE); UROBILINOGEN, URINE MANUAL NORMAL (NORMAL)
[2022-05-25 17:45] LABS: BLOOD URINE MANUAL NEGATIVE (NEGATIVE)
== END ==
LOC: M LAB REF 16:17
PROVIDERS: ATTEND Physician Assistant Medical
DX: N39.0 Urinary tract infection, site not specified (principal)

== ENCOUNTER → 2022-06-02 | Outpatient (REF) | payer MEDICARE ==
[2022-06-02 14:16] LABS: C REACTIVE PROTEIN QUANTITATIV 1.63 MG/DL (0.00-0.30); MAGNESIUM LEVEL 2.3 MG/DL (1.8-2.4); PHOSPHORUS LEVEL 4.7 MG/DL (2.5-4.9)
[2022-06-02 15:05] LABS: TOTAL 25(OH) VITAMIN D 23.2 NG/ML (30.0-100.0)
== END ==
LOC: M SFHCRHEU 10:45
PROVIDERS: ATTEND Internal Medicine
DX: M25.50 Pain in unspecified joint (principal); M79.10 Myalgia, unspecified site

== ENCOUNTER → 2022-06-09 | Outpatient (REF) | payer MEDICARE ==
[2022-06-09 13:27] LABS: APPEARANCE, URINE MANUAL CLEAR (CLEAR); COLOR, URINE MANUAL LT YELLOW (YELLOW); GLUCOSE, URINE (UA) MANUAL 4+(1000 MG/DL) mg/dL (NEGATIVE)
[2022-06-09 13:28] LABS: BILIRUBIN, URINE MANUAL NEGATIVE (NEGATIVE); BLOOD URINE MANUAL NEGATIVE (NEGATIVE); KETONE, URINE MANUAL NEGATIVE (NEGATIVE); LEUKOCYTE ESTERASE, URINE MAN NEGATIVE (NEGATIVE); NITRITE, URINE MANUAL NEGATIVE (NEGATIVE); PROTEIN, URINE MANUAL NEGATIVE (NEGATIVE); UROBILINOGEN, URINE MANUAL NORMAL (NORMAL)
== END ==
LOC: M LAB REF 12:09
PROVIDERS: ATTEND Family Medicine
DX: R30.0 Dysuria (principal)

== ENCOUNTER → 2022-06-15 | Outpatient (CLI) | payer MEDICARE ==
[~2022-06-15] MED LIST changes: +DOXY100C3 PO; +FLUC150T9 PO; +LINZ290C PO
== END ==
LOC: M LABSMTC 09:22
PROVIDERS: ATTEND Anesthesiology
DX: Z01.812 Encounter for preprocedural laboratory examination (principal); Z20.822 Contact with and (suspected) exposure to COVID-19

== ENCOUNTER 2022-06-17 10:47 | Day surgery (SDC) | payer MEDICARE ==
[~2022-06-17] VITALS: Ht 167.6 cm; Wt 107.0 kg
[~2022-06-17 10:47] MED LIST changes: +ACETYLCHOLINE OPHTH SOLN 1% 2ML (MIOCHOL-E) As Ordered ONE; +BSS IRRIG/VANCO(10MG)/TOBRA(5MG)/EPINEPH(1:1000-0.5CC)500ML BAG-ORONLY IR ONE; +CEFUROXIME 1MG/0.1ML INTRACAMERAL INJ As Ordered ONE; +CYCLOPENTOLATE 1% OPHTH SOLN 2 ML BTL OD SCH; +LIDOCAINE 1% SDV 5ML VIAL As Ordered ONE; +LIDOCAINE 3.5 % 1ML OPHTH TOPICAL GEL OU ONE; +MIDAZOLAM INJ 2MG/2ML VIAL (J2250 PER 1MG) As Ordered ONE; +PHENYLEPHRINE 2.5% OPHTH SOL 2ML OD SCH; +PHENYLEPHRINE HCL 10 % OPHTH. SOL 5ML OD PRN; +TROPICAMIDE 1% OPHTH SOLN 2ML OD SCH; +fentaNYL 100 MCG/2 ML INJECTION As Ordered ONE
[2022-06-17] MEDS ORDERED: OFLOXACIN 0.3 % (OCUFLOX) OPTH SOL 5ML OD ONE (11:45)
[2022-06-17 12:30] VITALS: BP 127/82
== END 2022-06-17 12:43 | disposition home or self-care (01) ==
LOC: M SDC 10:47
PROVIDERS: ATTEND Ophthalmology
DX: H25.11 Age-related nuclear cataract, right eye (principal); I25.10 Atherosclerotic heart disease of native coronary artery without angina pectoris; E11.9 Type 2 diabetes mellitus without complications; I10 Essential (primary) hypertension; E03.9 Hypothyroidism, unspecified; Z86.718 Personal history of other venous thrombosis and embolism; K21.9 Gastro-esophageal reflux disease without esophagitis; G43.909 Migraine, unspecified, not intractable, without status migrainosus; F41.9 Anxiety disorder, unspecified; F32.A Depression, unspecified; Z88.8 Allergy status to other drugs, medicaments and biological substances; Z88.0 Allergy status to penicillin; F17.210 Nicotine dependence, cigarettes, uncomplicated; Z79.02 Long term (current) use of antithrombotics/antiplatelets; Z79.899 Other long term (current) drug therapy; Z79.4 Long term (current) use of insulin; Z79.2 Long term (current) use of antibiotics
CPT/HCPCS: 66984; J0697; J2250; J3010; V2632

== ENCOUNTER → 2022-06-30 | Outpatient (REF) | payer MEDICARE ==
[~2022-06-30] MED LIST changes: -ACETYLCHOLINE OPHTH SOLN 1% 2ML (MIOCHOL-E) As Ordered ONE; -BSS IRRIG/VANCO(10MG)/TOBRA(5MG)/EPINEPH(1:1000-0.5CC)500ML BAG-ORONLY IR ONE; -CEFUROXIME 1MG/0.1ML INTRACAMERAL INJ As Ordered ONE; -CYCLOPENTOLATE 1% OPHTH SOLN 2 ML BTL OD SCH; -LIDOCAINE 1% SDV 5ML VIAL As Ordered ONE; -LIDOCAINE 3.5 % 1ML OPHTH TOPICAL GEL OU ONE; -MIDAZOLAM INJ 2MG/2ML VIAL (J2250 PER 1MG) As Ordered ONE; -PHENYLEPHRINE 2.5% OPHTH SOL 2ML OD SCH; -PHENYLEPHRINE HCL 10 % OPHTH. SOL 5ML OD PRN; -TROPICAMIDE 1% OPHTH SOLN 2ML OD SCH; -fentaNYL 100 MCG/2 ML INJECTION As Ordered ONE
[2022-06-30 22:16] LABS: HEMOGLOBIN A1c > 14.0 %
[2022-07-02 08:09] LABS: LDL DIRECT 107 mg/dL (0-99)
== END ==
LOC: M LAB REF 16:16
PROVIDERS: ATTEND Family Medicine
DX: E78.2 Mixed hyperlipidemia (principal); R73.09 Other abnormal glucose

== ENCOUNTER 2022-08-06 16:41 | Emergency (ER) | payer MEDICARE ==
[~2022-08-06] VITALS: Ht 167.6 cm; Wt 105.9 kg
[2022-08-06 17:42] LABS: BASO # 0.1 10^3/uL (0.0-0.2); BASO % 0.8 % (0.0-1.0); EOS # 0.1 10^3/uL (0.0-0.5); EOS % 0.9 % (0.0-3.0); HEMATOCRIT 45.3 % (36.0-47.0); HEMOGLOBIN 14.4 g/dl (12.0-15.5); LYMPH # 2.2 10^3/uL (1.5-5.0); MEAN CORPUSCULAR HEMOGLOBIN 27.7 pg (27.0-33.0); MEAN CORPUSCULAR HGB CONC 31.8 g/dl (32.0-36.5); MEAN CORPUSCULAR VOLUME 87.1 fl (80.0-96.0); MONO # 0.7 10^3/uL (0.0-0.8); MONO % 6.7 % (2.0-8.0); NEUTROPHILS # 7.2 10^3/uL (1.5-8.5); NEUTROPHILS % 69.9 % (36.0-66.0); PLATELET COUNT, AUTOMATED 211 10^3/uL (150-450); WHITE BLOOD COUNT 10.3 10^3/uL (4.0-10.0)
[2022-08-06 18:10] LABS: ERYTHROCYTE SEDIMENTATION RATE 37 mm/hr (0-30)
[2022-08-06 18:27] LABS: BLOOD UREA NITROGEN 9 MG/DL (9-23); CALCIUM LEVEL 8.8 MG/DL (8.5-10.1); CARBON DIOXIDE LEVEL 32 MMOL/L (20-31); CHLORIDE LEVEL 96 MMOL/L (98-107); CREATININE FOR GFR 0.55 MG/DL (0.55-1.30); GLOMERULAR FILTRATION RATE > 60.0 (>51); GLUCOSE, FASTING 529 MG/DL (60-100); SODIUM LEVEL 133 MMOL/L (136-145)
[2022-08-06] MEDS ORDERED: NS 1,000 ML IV ONE (20:30)
[2022-08-06] MEDS ORDERED: DALBAVANCIN 1,500 MG in D5W 250 ML IV ONE (20:30)
[2022-08-06] MEDS ORDERED: ACETAMINOPHEN 1000MG 100ML IV BAG IV ONE (20:30)
[2022-08-06] MEDS ORDERED: MORPHINE 30 MG SA TAB PO ONE (22:20)
[2022-08-06 23:14] VITALS: BP 174/91
== END 2022-08-06 23:18 | disposition home or self-care (01) ==
LOC: M ED 16:41
DX: L03.314 Cellulitis of groin (principal); L97.529 Non-pressure chronic ulcer of other part of left foot with unspecified severity; I25.2 Old myocardial infarction; E11.9 Type 2 diabetes mellitus without complications; I10 Essential (primary) hypertension; E78.5 Hyperlipidemia, unspecified; M51.36 Other intervertebral disc degeneration, lumbar region; F17.200 Nicotine dependence, unspecified, uncomplicated; Z86.79 Personal history of other diseases of the circulatory system; Z88.1 Allergy status to other antibiotic agents; Z88.4 Allergy status to anesthetic agent; Z88.8 Allergy status to other drugs, medicaments and biological substances; Z79.51 Long term (current) use of inhaled steroids; Z79.811 Long term (current) use of aromatase inhibitors; Z79.4 Long term (current) use of insulin; Z79.899 Other long term (current) drug therapy
CPT/HCPCS: 73630; 76882; 80048; 83605; 85025; 85652; 86140; 93971; 96365; 96375; 99284; J0131; J0875

== ENCOUNTER → 2022-10-20 | Outpatient (REF) | payer MEDICARE ==
[2022-10-20 12:46] LABS: APPEARANCE, URINE CLEAR (CLEAR); BILIRUBIN, URINE AUTO NEGATIVE (NEGATIVE); BLOOD, URINE BLOOD NEGATIVE (NEGATIVE); COLOR, URINE YELLOW (YELLOW); GLUCOSE, URINE (UA) AUTO 3+ mg/dL (NEGATIVE); KETONE, URINE AUTO NEGATIVE (NEGATIVE); LEUKOCYTE ESTERASE, URINE AUTO NEGATIVE (NEGATIVE); NITRITE, URINE AUTO NEGATIVE (NEGATIVE); PROTEIN, URINE AUTO NEGATIVE (NEGATIVE); SPECIFIC GRAVITY URINE AUTO 1.023 (1.002-1.035); UROBILINOGEN, URINE AUTO 0.2 mg/dL (0.0-2.0)
[2022-10-20 13:05] LABS: BACTERIA, URINE AUTO NEGATIVE (NEGATIVE); RBC, URINE AUTO 1 /HPF (0-3); SQUAMOUS EPITHELIAL CELL UR AU 1 /HPF (0-6); WBC, URINE AUTO 2 /HPF (0-3)
[2022-10-20 13:23] LABS: TOTAL PROTEIN,RANDOM URINE 9.3 MG/DL (0.0-14.0)
[2022-10-20 13:28] LABS: CREATININE,RANDOM URINE 30.6 MG/DL
[2022-10-20 15:55] LABS: COMPLEMENT C4 26.8 MG/DL (12-36)
== END ==
LOC: M SFHCRHEU 10:38
PROVIDERS: ATTEND Internal Medicine
DX: R76.8 Other specified abnormal immunological findings in serum (principal)

== ENCOUNTER → 2022-11-02 | Outpatient (REF) | payer MEDICARE | LOC: M SFHCDERM 17:37 | PROVIDERS: ATTEND Physician Assistant | DX: R21 Rash and other nonspecific skin eruption (principal) ==

== ENCOUNTER → 2023-01-01 | Outpatient (REF) | payer MEDICARE | LOC: M SFHCWOUN 12:55 | PROVIDERS: ATTEND Physician Assistant | DX: D23.5 Other benign neoplasm of skin of trunk (principal) ==

== ENCOUNTER → 2023-01-02 | Outpatient (REF) | payer MEDICARE | LOC: M LAB REF 17:30 | PROVIDERS: ATTEND Physician Assistant Medical | DX: R19.7 Diarrhea, unspecified (principal); A04.9 Bacterial intestinal infection, unspecified ==

== ENCOUNTER → 2023-01-19 | Outpatient (CLI) | payer MEDICARE ==
[~2023-01-19] MED LIST changes: -LOSA100T45 PO; +LOSA100T46 PO
== END ==
LOC: M WHC 12:21
PROVIDERS: ATTEND Physician Assistant
DX: S21.001A Unspecified open wound of right breast, initial encounter (principal); X58.XXXA Exposure to other specified factors, initial encounter; Y92.89 Other specified places as the place of occurrence of the external cause; Y93.89 Activity, other specified; Y99.8 Other external cause status

== ENCOUNTER 2023-01-30 12:36 | Emergency (ER) | payer MEDICARE ==
[~2023-01-30] VITALS: Ht 167.6 cm; Wt 112.7 kg
[2023-01-30 12:38] VITALS: BP 137/90
[2023-01-30 15:00] LABS: URINE PREG TEST NEGATIVE (NEGATIVE)
[2023-01-30 15:25] LABS: BASO # 0.1 10^3/uL (0.0-0.2); BASO % 0.5 % (0.0-1.0); EOS # 0.2 10^3/uL (0.0-0.5); EOS % 2.2 % (0.0-3.0); HEMATOCRIT 48.6 % (36.0-47.0); HEMOGLOBIN 16.6 g/dl (12.0-15.5); LYMPH # 2.8 10^3/uL (1.5-5.0); LYMPH % 29.5 % (24.0-44.0); MEAN CORPUSCULAR HEMOGLOBIN 28.8 pg (27.0-33.0); MEAN CORPUSCULAR HGB CONC 34.2 g/dl (32.0-36.5); MEAN CORPUSCULAR VOLUME 84.2 fl (80.0-96.0); MONO # 0.5 10^3/uL (0.0-0.8); MONO % 5.8 % (2.0-8.0); NEUTROPHILS # 5.8 10^3/uL (1.5-8.5); NEUTROPHILS % 61.7 % (36.0-66.0); PLATELET COUNT, AUTOMATED 175 10^3/uL (150-450); RED BLOOD COUNT 5.77 10^6/uL (4.00-5.40); WHITE BLOOD COUNT 9.4 10^3/uL (4.0-10.0)
[2023-01-30 15:53] LABS: AMYLASE 22 U/L (30-118)
[2023-01-30 16:00] LABS: ALBUMIN 3.4 G/DL (3.2-5.2); ALKALINE PHOSPHATASE 113 U/L (46-116); ALT/SGPT 10 U/L (7.0-40); BILIRUBIN,DIRECT < 0.1 MG/DL (<0.4); BILIRUBIN,TOTAL 0.6 MG/DL (0.3-1.2); CK-MB VALUE MASS < 1.0 NG/ML (<3.6); CPK CREATINE PHOSPHOKINASE 47 U/L (34-145); LIPASE 19 U/L (12-53); MB/CK RELATIVE INDEX 2.12 (< OR =4); TOTAL PROTEIN 6.8 G/DL (5.7-8.2)
[2023-01-30 16:02] LABS: AST/SGOT 34 U/L (<34)
== END 2023-01-30 15:33 | disposition left against medical advice (07) ==
LOC: M ED 12:36
DX: R10.9 Unspecified abdominal pain (principal); Z53.9 Procedure and treatment not carried out, unspecified reason; I25.2 Old myocardial infarction; E11.9 Type 2 diabetes mellitus without complications; I10 Essential (primary) hypertension; E78.5 Hyperlipidemia, unspecified; E03.9 Hypothyroidism, unspecified; F17.200 Nicotine dependence, unspecified, uncomplicated; Z79.01 Long term (current) use of anticoagulants; Z79.899 Other long term (current) drug therapy; Z88.8 Allergy status to other drugs, medicaments and biological substances; Z88.0 Allergy status to penicillin; Z88.1 Allergy status to other antibiotic agents; Z88.6 Allergy status to analgesic agent

== ENCOUNTER 2023-01-31 17:33 | Emergency (ER) | payer MEDICARE ==
[~2023-01-31] VITALS: Ht 167.6 cm; Wt 111.4 kg
[2023-01-31 17:36] VITALS: BP 154/101
== END 2023-01-31 20:07 | disposition left against medical advice (07) ==
LOC: M ED 17:33
DX: Z53.21 Procedure and treatment not carried out due to patient leaving prior to being seen by health care provider (principal)

== ENCOUNTER → 2023-02-04 | Outpatient (CLI) | payer MEDICARE ==
[~2023-02-04] MED LIST changes: +GASTROGRAFIN SOLUTION 30ML As Ordered ONE; +ISOVUE-370 76% 100ML VIAL As Ordered ONE
== END ==
LOC: M RAD 14:44
PROVIDERS: ATTEND Physician Assistant Medical
DX: R93.3 Abnormal findings on diagnostic imaging of other parts of digestive tract (principal); R10.10 Upper abdominal pain, unspecified; R19.4 Change in bowel habit; Z90.49 Acquired absence of other specified parts of digestive tract; K86.89 Other specified diseases of pancreas; R59.0 Localized enlarged lymph nodes; M47.9 Spondylosis, unspecified; R16.0 Hepatomegaly, not elsewhere classified
CPT/HCPCS: 74177; Q9963; Q9967

== ENCOUNTER → 2023-03-12 | Day surgery (SDC) | payer MEDICARE ==
[~2023-03-12] VITALS: Ht 167.6 cm; Wt 110.2 kg
[~2023-03-12] MED LIST changes: +FLUT50SP17; -GASTROGRAFIN SOLUTION 30ML As Ordered ONE; -ISOVUE-370 76% 100ML VIAL As Ordered ONE; +METO100T5 PO; +NS 1,000 ML IV ONE; +PREG150C PO; +propofoL 200 MG/20 ML VIAL As Ordered ONE
== END | disposition home or self-care (01) ==
LOC: M OPP 07:52
PROVIDERS: ATTEND Internal Medicine Gastroenterology
DX: R19.4 Change in bowel habit (principal); Z53.8 Procedure and treatment not carried out for other reasons

== ENCOUNTER → 2023-03-15 | Outpatient (REF) | payer MEDICARE ==
[~2023-03-15] MED LIST changes: -NS 1,000 ML IV ONE; -ROPI1TAB3 PO; +ROPI1TAB73 PO; -ROPI2TAB3 PO; +ROPI2TAB46 PO; -propofoL 200 MG/20 ML VIAL As Ordered ONE
== END ==
LOC: M LAB REF 16:28
PROVIDERS: ATTEND Physician Assistant Medical
DX: N61.1 Abscess of the breast and nipple (principal)

== ENCOUNTER → 2023-03-18 | Outpatient (REF) | payer MEDICARE | LOC: M LAB REF 16:30 | PROVIDERS: ATTEND Family Medicine | DX: K75.81 Nonalcoholic steatohepatitis (NASH) (principal) ==

== ENCOUNTER → 2023-04-06 | Outpatient (REF) | payer MEDICARE | LOC: M SFHCPLAZ 16:49 | PROVIDERS: ATTEND Internal Medicine Infectious Disease | DX: L02.214 Cutaneous abscess of groin (principal) ==

== ENCOUNTER 2023-04-16 14:53 | Emergency (ER) | payer MEDICARE ==
[2023-04-20] MEDS ORDERED: LACT10SO3 PO (11:30)
== END 2023-04-16 15:05 | disposition left against medical advice (07) ==
LOC: M ED 14:53
DX: Z53.21 Procedure and treatment not carried out due to patient leaving prior to being seen by health care provider (principal)

== ENCOUNTER → 2023-05-03 | Day surgery (SDC) | payer MEDICARE, MEDICAID ==
[~2023-05-03] VITALS: Ht 167.6 cm; Wt 111.3 kg
[~2023-05-03] MED LIST changes: +HumuLIN N INSULIN (NovoLIN N) PER UNIT SC ONE; +LACT10SO3 PO; +NS 1,000 ML IV ONE
[2023-05-03 08:16] VITALS: BP 181/95; TEMP 97.6; O2SAT 95
== END | disposition home or self-care (01) ==
LOC: M OPP 07:46
PROVIDERS: ATTEND Internal Medicine Gastroenterology
DX: R93.3 Abnormal findings on diagnostic imaging of other parts of digestive tract (principal); R19.4 Change in bowel habit; Z53.09 Procedure and treatment not carried out because of other contraindication; R73.9 Hyperglycemia, unspecified

== ENCOUNTER → 2023-05-14 | Outpatient (CLI) | payer OTHER, MEDICAID ==
[~2023-05-14] MED LIST changes: -COZA1TAB PO; +E-Z-GAS II EFFERVESCENT PACKET (SODIUM BICARB./CITRIC ACID/SIMETHICONE) As Ordered ONE; +E-Z-HD 98% w/w 340GM SUSP BTL As Ordered ONE; +E-Z-PAQUE 96% w/w SUSP 176GM BTL As Ordered ONE; -HumuLIN N INSULIN (NovoLIN N) PER UNIT SC ONE; +LORA-1041 PO; -LORA-674 PO; +LOSA-527 PO; -NS 1,000 ML IV ONE; -PREG150C PO; +PREG150C2 PO
== END ==
LOC: M RAD 08:41
PROVIDERS: ATTEND Physician Assistant Medical
DX: R10.10 Upper abdominal pain, unspecified (principal); R11.2 Nausea with vomiting, unspecified; K31.4 Gastric diverticulum

== ENCOUNTER 2023-06-06 15:00 | Emergency (ER) | payer OTHER, MEDICAID ==
[~2023-06-06 15:00] MED LIST changes: +CLIN1LOT TOP; +CLOT1CRE56 TOP; -E-Z-GAS II EFFERVESCENT PACKET (SODIUM BICARB./CITRIC ACID/SIMETHICONE) As Ordered ONE; -E-Z-HD 98% w/w 340GM SUSP BTL As Ordered ONE; -E-Z-PAQUE 96% w/w SUSP 176GM BTL As Ordered ONE; +INSUR50VL SC; -NITR0.4S14; +NITR0.4S14 SL
[2023-06-06] MEDS ORDERED: ISOVUE-370 76% 100ML VIAL As Ordered ONE (18:51)
[2023-06-06 19:51] LABS: BASO % 0.4 % (0.0-1.0); EOS # 0.3 10^3/uL (0.0-0.5); EOS % 3.4 % (0.0-3.0); HEMATOCRIT 42.9 % (36.0-47.0); HEMOGLOBIN 14.4 g/dl (12.0-15.5); LYMPH # 2.9 10^3/uL (1.5-5.0); LYMPH % 31.6 % (24.0-44.0); MEAN CORPUSCULAR HEMOGLOBIN 28.9 pg (27.0-33.0); MEAN CORPUSCULAR HGB CONC 33.6 g/dl (32.0-36.5); MEAN CORPUSCULAR VOLUME 86.1 fl (80.0-96.0); MONO # 0.6 10^3/uL (0.0-0.8); MONO % 6.5 % (2.0-8.0); NEUTROPHILS # 5.3 10^3/uL (1.5-8.5); PLATELET COUNT, AUTOMATED 178 10^3/uL (150-450); RED BLOOD COUNT 4.98 10^6/uL (4.00-5.40); WHITE BLOOD COUNT 9.1 10^3/uL (4.0-10.0)
[2023-06-06 21:15] VITALS: BP 146/78; TEMP 98.8; O2SAT 98
== END 2023-06-06 21:21 | disposition home or self-care (01) ==
LOC: EDSEX 15:00 → EDBD 15:00 → M ED 15:00
DX: R07.9 Chest pain, unspecified (principal); M79.605 Pain in left leg; I25.2 Old myocardial infarction; E11.9 Type 2 diabetes mellitus without complications; I10 Essential (primary) hypertension; E78.5 Hyperlipidemia, unspecified; K21.9 Gastro-esophageal reflux disease without esophagitis; F17.200 Nicotine dependence, unspecified, uncomplicated; Z88.1 Allergy status to other antibiotic agents; Z88.5 Allergy status to narcotic agent; Z88.6 Allergy status to analgesic agent; Z88.8 Allergy status to other drugs, medicaments and biological substances; Z79.52 Long term (current) use of systemic steroids; Z79.4 Long term (current) use of insulin; Z79.899 Other long term (current) drug therapy
CPT/HCPCS: 36415; 73701; 76882; 80047; 83605; 84484; 85025; 86140; 87486; 87581; 87633; 87798; 93005; 99284; Q9967

== ENCOUNTER → 2023-07-01 | Outpatient (CLI) | payer OTHER, MEDICAID | LOC: M RAD 14:20 | PROVIDERS: ATTEND Family Medicine | DX: M19.011 Primary osteoarthritis, right shoulder (principal) ==

== ENCOUNTER → 2023-07-26 | Outpatient (CLI) | payer OTHER, MEDICAID ==
[~2023-07-26] MED LIST changes: +ISOVUE-370 76% 100ML VIAL ONE
== END ==
LOC: M PLAIMG 10:55
PROVIDERS: ATTEND Family Medicine
DX: R91.8 Other nonspecific abnormal finding of lung field (principal)
CPT/HCPCS: 71260; Q9967

== ENCOUNTER 2023-07-28 21:24 | Emergency (ER) | payer OTHER, MEDICAID ==
[~2023-07-28 21:24] MED LIST changes: -ISOVUE-370 76% 100ML VIAL ONE
[2023-07-28 22:26] LABS: RSV AMPLIFICATION NEGATIVE (NEGATIVE)
[2023-07-28 23:42] VITALS: BP 168/98; TEMP 97.4; O2SAT 97
== END 2023-07-28 23:43 | disposition home or self-care (01) ==
LOC: M ED 21:24
DX: J02.9 Acute pharyngitis, unspecified (principal); E11.9 Type 2 diabetes mellitus without complications; N18.9 Chronic kidney disease, unspecified; R91.1 Solitary pulmonary nodule; F17.200 Nicotine dependence, unspecified, uncomplicated; Z86.79 Personal history of other diseases of the circulatory system; Z88.1 Allergy status to other antibiotic agents; Z88.2 Allergy status to sulfonamides; Z88.6 Allergy status to analgesic agent; Z88.8 Allergy status to other drugs, medicaments and biological substances; Z79.52 Long term (current) use of systemic steroids; Z79.4 Long term (current) use of insulin; Z79.811 Long term (current) use of aromatase inhibitors; Z79.899 Other long term (current) drug therapy

== ENCOUNTER 2023-09-30 12:21 | Emergency (ER) | payer OTHER, MEDICAID ==
[~2023-09-30] VITALS: Ht 167.6 cm; Wt 111.8 kg
[~2023-09-30 12:21] MED LIST changes: -FLUT50SP17; +FLUTISP
[2023-09-30 13:50] LABS: BASO # 0.1 10^3/uL (0.0-0.2); BASO % 0.6 % (0.0-1.0); EOS # 0.2 10^3/uL (0.0-0.5); EOS % 1.5 % (0.0-3.0); HEMATOCRIT 46.1 % (36.0-47.0); HEMOGLOBIN 15.4 g/dl (12.0-15.5); LYMPH # 2.1 10^3/uL (1.5-5.0); LYMPH % 19.7 % (24.0-44.0); MEAN CORPUSCULAR HEMOGLOBIN 28.3 pg (27.0-33.0); MEAN CORPUSCULAR HGB CONC 33.4 g/dl (32.0-36.5); MEAN CORPUSCULAR VOLUME 84.7 fl (80.0-96.0); MONO # 0.5 10^3/uL (0.0-0.8); MONO % 4.7 % (2.0-8.0); NEUTROPHILS # 7.6 10^3/uL (1.5-8.5); NEUTROPHILS % 73.2 % (36.0-66.0); PLATELET COUNT, AUTOMATED 176 10^3/uL (150-450); RED BLOOD COUNT 5.44 10^6/uL (4.00-5.40); WHITE BLOOD COUNT 10.4 10^3/uL (4.0-10.0)
[2023-09-30 14:20] LABS: BLOOD UREA NITROGEN 12 MG/DL (9-23); CALCIUM LEVEL 8.6 MG/DL (8.5-10.1); CARBON DIOXIDE LEVEL 34 MMOL/L (20-31); CHLORIDE LEVEL 98 MMOL/L (98-107); CREATININE FOR GFR 0.67 MG/DL (0.55-1.30); GLOMERULAR FILTRATION RATE > 60.0 (>51); GLUCOSE, FASTING 416 MG/DL (60-100); MAGNESIUM LEVEL 1.7 MG/DL (1.8-2.4); POTASSIUM SERUM 4.2 MMOL/L (3.5-5.1); SODIUM LEVEL 135 MMOL/L (136-145)
[2023-09-30] MEDS ORDERED: HumuLIN R (REGULAR) INSULIN (NovoLIN R) **100U/ML** PER UNIT IV ONE ×2 (14:25→16:35)
[2023-09-30] MEDS ORDERED: MORPHINE 4 MG/ML 1ML VIAL IV ONE (15:10)
[2023-09-30 18:15] VITALS: BP 158/89; TEMP 97.9; O2SAT 96
== END 2023-09-30 18:21 | disposition home or self-care (01) ==
LOC: M ED 12:21 → EDBD 12:21 → M ED 18:21
DX: S72.112A Displaced fracture of greater trochanter of left femur, initial encounter for closed fracture (principal); E11.65 Type 2 diabetes mellitus with hyperglycemia; W19.XXXA Unspecified fall, initial encounter; F32.A Depression, unspecified; N18.9 Chronic kidney disease, unspecified; E66.9 Obesity, unspecified; F17.200 Nicotine dependence, unspecified, uncomplicated; Y92.009 Unspecified place in unspecified non-institutional (private) residence as the place of occurrence of the external cause; Y93.89 Activity, other specified; Y99.9 Unspecified external cause status; Z88.1 Allergy status to other antibiotic agents; Z88.2 Allergy status to sulfonamides; Z88.6 Allergy status to analgesic agent; Z88.8 Allergy status to other drugs, medicaments and biological substances; Z79.52 Long term (current) use of systemic steroids; Z79.4 Long term (current) use of insulin; Z79.899 Other long term (current) drug therapy; Z79.811 Long term (current) use of aromatase inhibitors
CPT/HCPCS: 72192; 73502; 73552; 73700; 80048; 83735; 84484; 85025; 93041; 94760; 96374; 96375; 96376; 99285; J1815

== ENCOUNTER 2023-10-02 19:42 | Emergency (ER) | payer OTHER, MEDICAID ==
[~2023-10-02] VITALS: Ht 167.6 cm; Wt 104.5 kg
[2023-10-02 19:56] VITALS: BP 145/72; TEMP 97.6; O2SAT 95
== END 2023-10-02 20:30 | disposition left against medical advice (07) ==
LOC: EDBD 19:42 → M ED 19:42
DX: Z53.21 Procedure and treatment not carried out due to patient leaving prior to being seen by health care provider (principal)

== ENCOUNTER 2023-10-04 20:25 | Inpatient (IN) | payer OTHER, MEDICAID ==
[~2023-10-04] VITALS: Ht 167.6 cm; Wt 111.4 kg
[2023-10-04] MEDS ORDERED: MORPHINE 2 MG/ML 1ML VIAL IV ONE (21:45)
[2023-10-04 22:24] LABS: BASO # 0.1 10^3/uL (0.0-0.2); BASO % 0.4 % (0.0-1.0); EOS # 0.2 10^3/uL (0.0-0.5); EOS % 1.6 % (0.0-3.0); HEMATOCRIT 46.3 % (36.0-47.0); HEMOGLOBIN 15.3 g/dl (12.0-15.5); LYMPH # 3.1 10^3/uL (1.5-5.0); LYMPH % 27.5 % (24.0-44.0); MEAN CORPUSCULAR HEMOGLOBIN 28.1 pg (27.0-33.0); MEAN CORPUSCULAR VOLUME 85.1 fl (80.0-96.0); MONO # 0.5 10^3/uL (0.0-0.8); MONO % 4.7 % (2.0-8.0); NEUTROPHILS # 7.4 10^3/uL (1.5-8.5); NEUTROPHILS % 65.5 % (36.0-66.0); RED BLOOD COUNT 5.44 10^6/uL (4.00-5.40); WHITE BLOOD COUNT 11.2 10^3/uL (4.0-10.0)
[2023-10-04 22:30] LABS: PLATELET COUNT, AUTOMATED 168 10^3/uL (150-450)
[2023-10-04 22:47] LABS: BLOOD UREA NITROGEN 11 MG/DL (9-23); CALCIUM LEVEL 8.4 MG/DL (8.5-10.1); CARBON DIOXIDE LEVEL 33 MMOL/L (20-31); CHLORIDE LEVEL 95 MMOL/L (98-107); CREATININE FOR GFR 0.59 MG/DL (0.55-1.30); GLOMERULAR FILTRATION RATE > 60.0 (>51); GLUCOSE, FASTING 463 MG/DL (60-100); SODIUM LEVEL 131 MMOL/L (136-145)
[2023-10-04 22:49] LABS: RSV AMPLIFICATION NEGATIVE (NEGATIVE)
[2023-10-05] MEDS ORDERED: ACETAMINOPHEN TAB 650MG DOSE (2X325MG) PO PRN (00:45)
[2023-10-05] MEDS ORDERED: HYDROMORPHONE HCL 0.5 MG/ 0.5 ML SYRINGE IV PRN (00:45)
[2023-10-05] MEDS ORDERED: MOM 30ML SUSPENSION UDC PO PRN (00:45)
[2023-10-05] MEDS ORDERED: HYDROmorphone HCL 2MG/ML 1ML VIAL IV PRN (00:45)
[2023-10-05] MEDS ORDERED: GLUCOSE 4GM CHEW TABLET PO PRN (00:55)
[2023-10-05] MEDS ORDERED: DEXTROSE 50% 50ML SYRINGE IV PRN (00:55)
[2023-10-05] MEDS ORDERED: GLUCAGON INJ 1MG VIAL SC PRN (00:55)
[2023-10-05 02:13] VITALS: BP_SYST 172; BP_DIAS 76; BP_DIAS 96; TEMP 98.1; O2SAT 98
[2023-10-05] MEDS ORDERED: TIZA10TA PO (02:24)
[2023-10-05] MEDS ORDERED: HOME MED LIST COMPLETE! XX SCH (02:25)
[2023-10-05] MEDS ORDERED: CLOTRIMAZOLE 1% TOPICAL CREAM 30GM TOP PRN (03:05)
[2023-10-05] MEDS ORDERED: FLUTICASONE PROP 0.05% NASAL SPRAY 16 GM (FLONASE) PRN (03:05)
[2023-10-05] MEDS ORDERED: NITROGLYCERIN 0.4MG SUBL TABLET SL PRN (03:05)
[2023-10-05] MEDS ORDERED: ALBUTEROL 90 MCG/ACT 8GM HFA INHALER INH PRN (03:05)
[2023-10-05] MEDS ORDERED: LOSARTAN 50MG TABLET PO ONE (03:35)
[2023-10-05] MEDS ORDERED: LEVOTHYROXINE 75MCG TABLET (0.075MG) PO SCH (06:00)
[2023-10-05] MEDS ORDERED: HUMULIN R U-500 KWIKPEN 500UNITS/ML 3ML SYRINGE SC SCH (07:30)
[2023-10-05] MEDS ORDERED: NICOTINE 14 MG/24 HR TRANSDERMAL TD SCH (09:00)
[2023-10-05] MEDS ORDERED: HEPARIN SOD (PORCINE) 5000UNITS/ML 1ML VIAL/SYRINGE SQ SCH (09:00)
[2023-10-05] MEDS ORDERED: tiZANidine 4 MG TAB PO SCH (09:00)
[2023-10-05] MEDS ORDERED: DULoxetine 30MG CAPSULE (CYMBALTA) PO SCH (09:00)
[2023-10-05] MEDS ORDERED: PREGABALIN 75 MG CAP(LYRICA) PO SCH (09:00)
[2023-10-05] MEDS ORDERED: HumuLIN N INSULIN (NovoLIN N) PER UNIT SQ SCH (09:00)
[2023-10-05] MEDS ORDERED: LINZESS 290 MCG PO SCH (09:00)
[2023-10-05] MEDS ORDERED: LORATADINE 10 MG TAB PO SCH (09:00)
[2023-10-05] MEDS ORDERED: PANTOPRAZOLE 40MG TAB (PROTONIX) PO SCH (09:00)
[2023-10-05] MEDS ORDERED: LACTULOSE 20GM/30ML SYRUP UDC PO SCH (09:00)
[2023-10-05] MEDS ORDERED: PEN NEEDLE (USE WITH HUMULIN U-500 INSULIN PEN) XX SCH (09:00)
[2023-10-05] MEDS ORDERED: DOCUSATE SODIUM 100MG CAPSULE PO SCH (09:00)
[2023-10-05] MEDS ORDERED: METOPROLOL TARTRATE 100MG TAB PO SCH (09:00)
[2023-10-05] MEDS ORDERED: zolPIDEM TARTRATE 5 MG TAB PO SCH (21:00)
[2023-10-05] MEDS ORDERED: LOSARTAN 50MG TABLET PO SCH (21:00)
== END 2023-10-05 04:16 | disposition left against medical advice (07) | DRG 552 ==
LOC: EDBD 20:25 → M ED 20:25 → M ED INP 23:42 → M MSPAV 10-05 02:12
PROVIDERS: ADMIT Family Medicine; ATTEND Family Medicine
DX: M51.25 Other intervertebral disc displacement, thoracolumbar region (principal); Z66 Do not resuscitate; S72.112D Displaced fracture of greater trochanter of left femur, subsequent encounter for closed fracture with routine healing; M47.896 Other spondylosis, lumbar region; M85.852 Other specified disorders of bone density and structure, left thigh; M19.90 Unspecified osteoarthritis, unspecified site; E11.43 Type 2 diabetes mellitus with diabetic autonomic (poly)neuropathy; H35.30 Unspecified macular degeneration; F32.A Depression, unspecified; E11.65 Type 2 diabetes mellitus with hyperglycemia; H26.9 Unspecified cataract; F41.9 Anxiety disorder, unspecified; K59.09 Other constipation; I10 Essential (primary) hypertension; E03.9 Hypothyroidism, unspecified; G89.29 Other chronic pain; M50.20 Other cervical disc displacement, unspecified cervical region; F17.210 Nicotine dependence, cigarettes, uncomplicated; Z79.4 Long term (current) use of insulin; Z79.890 Hormone replacement therapy; Z79.899 Other long term (current) drug therapy; Z88.0 Allergy status to penicillin; Z88.6 Allergy status to analgesic agent; Z88.8 Allergy status to other drugs, medicaments and biological substances; Z20.822 Contact with and (suspected) exposure to COVID-19; Z79.891 Long term (current) use of opiate analgesic

== ENCOUNTER → 2023-10-14 | Outpatient (REF) | payer OTHER, MEDICAID | LOC: M SFHCPLAZ 16:47 | PROVIDERS: ATTEND Internal Medicine Infectious Disease | DX: A49.02 Methicillin resistant Staphylococcus aureus infection, unspecified site (principal); B37.9 Candidiasis, unspecified ==

== ENCOUNTER → 2023-11-05 | Outpatient (REF) | payer OTHER, MEDICAID ==
[~2023-11-05] MED LIST changes: +DIPH-435 PO; +DOXY100T PO; +FEXO60TA98 PO; +FEXO60TA99 PO; +FLUC100T3 PO; -FLUTISP; +FLUTISP NARES; +HYDR50CA2 PO; +INSUR50VL SQ; +NOVOINJ13 SQ; +NYST10006 TOP; +PROBCAP14 PO
== END ==
LOC: M SFHCWOUN 17:16
PROVIDERS: ATTEND Surgery
DX: S81.002A Unspecified open wound, left knee, initial encounter (principal); S31.109A Unspecified open wound of abdominal wall, unspecified quadrant without penetration into peritoneal cavity, initial encounter

== ENCOUNTER → 2023-11-22 | Outpatient (REF) | payer OTHER, MEDICAID | LOC: M SFHCDERM 15:47 | PROVIDERS: ATTEND Physician Assistant | DX: L88 Pyoderma gangrenosum (principal) ==

== ENCOUNTER → 2023-11-22 | Outpatient (CLI) | payer OTHER, MEDICAID ==
[2023-11-22 15:58] LABS: HEMATOCRIT 44.5 % (36.0-47.0); HEMOGLOBIN 14.5 g/dl (12.0-15.5); MEAN CORPUSCULAR HEMOGLOBIN 27.9 pg (27.0-33.0); MEAN CORPUSCULAR HGB CONC 32.6 g/dl (32.0-36.5); MEAN CORPUSCULAR VOLUME 85.7 fl (80.0-96.0); PLATELET COUNT, AUTOMATED 202 10^3/uL (150-450); RED BLOOD COUNT 5.19 10^6/uL (4.00-5.40); WHITE BLOOD COUNT 10.8 10^3/uL (4.0-10.0)
[2023-11-22 18:24] LABS: ALBUMIN 3.2 G/DL (3.2-5.2); ALKALINE PHOSPHATASE 93 U/L (46-116); ALT/SGPT < 9 U/L (7.0-40); AST/SGOT < 8 U/L (<34); BILIRUBIN,TOTAL 0.3 MG/DL (0.3-1.2); BLOOD UREA NITROGEN 11 MG/DL (9-23); CARBON DIOXIDE LEVEL 33 MMOL/L (20-31); CHLORIDE LEVEL 98 MMOL/L (98-107); CREATININE FOR GFR 0.64 MG/DL (0.55-1.30); GLOMERULAR FILTRATION RATE > 60.0 (>51); GLUCOSE, FASTING 480 MG/DL (60-100); MAGNESIUM LEVEL 1.9 MG/DL (1.8-2.4); POTASSIUM SERUM 4.4 MMOL/L (3.5-5.1); SODIUM LEVEL 133 MMOL/L (136-145); TOTAL PROTEIN 6.7 G/DL (5.7-8.2)
== END ==
LOC: M LAB 15:31
PROVIDERS: ATTEND Physician Assistant
DX: L88 Pyoderma gangrenosum (principal)

== ENCOUNTER → 2023-11-23 | Outpatient (CLI) | payer OTHER, MEDICAID | LOC: M SOG 08:01 | PROVIDERS: ATTEND Physician Assistant | DX: S72.115A Nondisplaced fracture of greater trochanter of left femur, initial encounter for closed fracture (principal); Y92.9 Unspecified place or not applicable; Y93.9 Activity, unspecified ==

== ENCOUNTER 2023-12-01 11:56 | Emergency (ER) | payer OTHER, MEDICAID ==
[~2023-12-01] VITALS: Ht 167.6 cm; Wt 106.7 kg
[2023-12-01 12:09] VITALS: BP 126/70; TEMP 98.1; O2SAT 98
== END 2023-12-01 15:27 | disposition left against medical advice (07) ==
LOC: EDBD 11:56 → M ED 13:15
DX: S20.20XA Contusion of thorax, unspecified, initial encounter (principal); S40.012A Contusion of left shoulder, initial encounter; S70.02XA Contusion of left hip, initial encounter; Z53.9 Procedure and treatment not carried out, unspecified reason; W19.XXXA Unspecified fall, initial encounter; Y92.410 Unspecified street and highway as the place of occurrence of the external cause; Y93.89 Activity, other specified; Y99.9 Unspecified external cause status; E11.9 Type 2 diabetes mellitus without complications; I10 Essential (primary) hypertension; G47.30 Sleep apnea, unspecified; F17.200 Nicotine dependence, unspecified, uncomplicated; Z79.4 Long term (current) use of insulin; Z79.891 Long term (current) use of opiate analgesic; Z79.899 Other long term (current) drug therapy; Z88.0 Allergy status to penicillin; Z88.1 Allergy status to other antibiotic agents; Z88.6 Allergy status to analgesic agent; Z88.8 Allergy status to other drugs, medicaments and biological substances
CPT/HCPCS: 36415; 70450; 71046; 73030; 73502; 82955; 99283; G0463

== ENCOUNTER → 2023-12-01 | Outpatient (REF) | payer OTHER, MEDICAID | LOC: M SFHCDERM 09:24 | PROVIDERS: ATTEND Physician Assistant | DX: Z79.899 Other long term (current) drug therapy (principal) ==

== ENCOUNTER → 2023-12-01 | Outpatient (CLI) | payer OTHER, MEDICAID ==
[2023-12-02 17:07] LABS: G6PD2 5.33 x10E6/uL (3.77-5.28)
== END ==
LOC: M LAB 09:21
PROVIDERS: ATTEND Physician Assistant
DX: Z79.899 Other long term (current) drug therapy (principal)

== ENCOUNTER → 2023-12-08 | Outpatient (CLI) | payer OTHER, MEDICAID ==
[2023-12-08 12:51] LABS: HEMOGLOBIN 16.2 g/dl (12.0-15.5); MEAN CORPUSCULAR HEMOGLOBIN 28.2 pg (27.0-33.0); MEAN CORPUSCULAR HGB CONC 33.1 g/dl (32.0-36.5); MEAN CORPUSCULAR VOLUME 85.4 fl (80.0-96.0); PLATELET COUNT, AUTOMATED 223 10^3/uL (150-450); RED BLOOD COUNT 5.74 10^6/uL (4.00-5.40); WHITE BLOOD COUNT 8.4 10^3/uL (4.0-10.0)
== END ==
LOC: M LAB 11:54
PROVIDERS: ATTEND Physician Assistant
DX: Z79.899 Other long term (current) drug therapy (principal)

== ENCOUNTER → 2023-12-15 | Outpatient (REF) | payer OTHER, MEDICAID | LOC: M SFHCDERM 12:40 | PROVIDERS: ATTEND Physician Assistant | DX: Z79.899 Other long term (current) drug therapy (principal) ==

== ENCOUNTER → 2023-12-15 | Outpatient (CLI) | payer OTHER, MEDICAID ==
[2023-12-15 13:15] LABS: HEMATOCRIT 48.2 % (36.0-47.0); HEMOGLOBIN 15.8 g/dl (12.0-15.5); MEAN CORPUSCULAR HEMOGLOBIN 27.8 pg (27.0-33.0); MEAN CORPUSCULAR HGB CONC 32.8 g/dl (32.0-36.5); MEAN CORPUSCULAR VOLUME 84.7 fl (80.0-96.0); PLATELET COUNT, AUTOMATED 225 10^3/uL (150-450); RED BLOOD COUNT 5.69 10^6/uL (4.00-5.40); WHITE BLOOD COUNT 8.6 10^3/uL (4.0-10.0)
[2023-12-15 13:42] LABS: HEPATITIS B SURFACE ANTIBODY POSITIVE (POSITIVE)
[2023-12-15 14:06] LABS: HIV 1&2 SCREEN NEGATIVE (NEGATIVE)
[2023-12-15 14:14] LABS: HEPATITIS C VIRUS ABY INDEX < 0.02 INDEX (<0.8)
[2023-12-15 15:10] LABS: ALBUMIN 3.2 G/DL (3.2-5.2); ALKALINE PHOSPHATASE 105 U/L (46-116); ALT/SGPT < 9 U/L (7.0-40); AST/SGOT < 8 U/L (<34); BILIRUBIN,TOTAL 0.5 MG/DL (0.3-1.2); BLOOD UREA NITROGEN 11 MG/DL (9-23); CALCIUM LEVEL 8.9 MG/DL (8.5-10.1); CARBON DIOXIDE LEVEL 35 MMOL/L (20-31); CHLORIDE LEVEL 95 MMOL/L (98-107); CREATININE FOR GFR 0.65 MG/DL (0.55-1.30); GLOMERULAR FILTRATION RATE > 60.0 (>51); GLUCOSE, FASTING 443 MG/DL (60-100); POTASSIUM SERUM 4.1 MMOL/L (3.5-5.1); SODIUM LEVEL 132 MMOL/L (136-145); TOTAL PROTEIN 6.8 G/DL (5.7-8.2)
== END ==
LOC: M LAB 12:19
PROVIDERS: ATTEND Physician Assistant
DX: Z79.899 Other long term (current) drug therapy (principal); Z72.89 Other problems related to lifestyle; Z11.59 Encounter for screening for other viral diseases

== ENCOUNTER → 2023-12-29 | Outpatient (REF) | payer OTHER, MEDICAID | LOC: M SFHCDERM 16:59 | PROVIDERS: ATTEND Physician Assistant | DX: L88 Pyoderma gangrenosum (principal) ==

== ENCOUNTER → 2023-12-29 | Outpatient (CLI) | payer OTHER, MEDICAID | LOC: M SOG 10:41 | PROVIDERS: ATTEND Physician Assistant | DX: S72.115A Nondisplaced fracture of greater trochanter of left femur, initial encounter for closed fracture (principal); X58.XXXA Exposure to other specified factors, initial encounter; Y92.9 Unspecified place or not applicable; Y93.9 Activity, unspecified; Y99.9 Unspecified external cause status ==

== ENCOUNTER → 2023-12-29 | Outpatient (REF) | payer OTHER, MEDICAID | LOC: M SFHCDERM 16:57 | PROVIDERS: ATTEND Physician Assistant | DX: L88 Pyoderma gangrenosum (principal) ==

== ENCOUNTER → 2024-02-23 | Outpatient (REF) | payer OTHER, MEDICAID | LOC: M SFHCDERM 16:50 | PROVIDERS: ATTEND Physician Assistant | DX: T14.8XXA Other injury of unspecified body region, initial encounter (principal) ==

== ENCOUNTER → 2024-05-04 | Outpatient (REF) | payer OTHER, MEDICAID | LOC: M SFHCPLAZ 16:54 | PROVIDERS: ATTEND Internal Medicine Infectious Disease | DX: A49.02 Methicillin resistant Staphylococcus aureus infection, unspecified site (principal) ==

== ENCOUNTER 2024-05-29 14:30 | Emergency (ER) | payer OTHER, MEDICAID | END 2024-05-29 14:40 | disposition left against medical advice (07) | LOC: EDBD 14:30 → M ED 14:30 | DX: Z53.21 Procedure and treatment not carried out due to patient leaving prior to being seen by health care provider (principal) ==

== ENCOUNTER → 2024-06-01 | Outpatient (REF) | payer OTHER, MEDICAID ==
[~2024-06-01] MED LIST changes: +VANC250C10; -VANC250C3
== END ==
LOC: M SFHCPLAZ 14:49
PROVIDERS: ATTEND Internal Medicine Infectious Disease
DX: B02.9 Zoster without complications (principal)

== ENCOUNTER → 2024-06-27 | Outpatient (CLI) | payer OTHER, MEDICAID ==
[~2024-06-27] MED LIST changes: +ISOVUE-370 76% 100ML VIAL ONE
== END ==
LOC: M PLAIMG 12:59
PROVIDERS: ATTEND Family Medicine
DX: R91.8 Other nonspecific abnormal finding of lung field (principal); I70.0 Atherosclerosis of aorta
CPT/HCPCS: 71260; Q9967

== ENCOUNTER 2024-07-20 11:34 | Day surgery (SDC) | payer OTHER, MEDICAID ==
[~2024-07-20] VITALS: Ht 167.6 cm; Wt 105.7 kg
[~2024-07-20 11:34] MED LIST changes: -ISOVUE-370 76% 100ML VIAL ONE; -LACT10SO3 PO; +LACT10SO94 PO; +NYST1POW3 TOP; -NYST1POW9 TOP; +PRED10TA2 PO; +TAMS1CAP17 PO; -VANC250C10; +VANC250C12
[2024-07-20] MEDS ORDERED: LR 1,000 ML IV SCH (11:40)
[2024-07-20] MEDS ORDERED: LIDOCAINE 2% 100MG/5ML SDV (FOR ANES.) As Ordered ONE (14:47)
[2024-07-20] MEDS ORDERED: METOCLOPRAMIDE INJ 10MG/2ML VIAL As Ordered ONE (14:48)
[2024-07-20] MEDS ORDERED: propofoL 200 MG/20 ML VIAL As Ordered ONE (14:48)
[2024-07-20] MEDS ORDERED: MIDAZOLAM INJ 2MG/2ML VIAL As Ordered ONE (14:51)
[2024-07-20] MEDS ORDERED: fentaNYL 100 MCG/2 ML INJECTION As Ordered ONE (14:51)
[2024-07-20] MEDS: LIDOCAINE W/EPINEPHRINE 1% 20ML VIAL As Ordered ONE (15:24)
[2024-07-20 16:15] VITALS: BP 118/62; TEMP 98.6; O2SAT 96
[2024-07-21] MEDS ORDERED: UNRESOLVED CLARIFICATION ENTRY XX SCH (00:01)
== END 2024-07-20 16:25 | disposition home or self-care (01) ==
LOC: M SDC 11:34
PROVIDERS: ATTEND Otolaryngology
DX: K13.6 Irritative hyperplasia of oral mucosa (principal); K11.8 Other diseases of salivary glands; I25.10 Atherosclerotic heart disease of native coronary artery without angina pectoris; E11.40 Type 2 diabetes mellitus with diabetic neuropathy, unspecified; I25.2 Old myocardial infarction; E78.5 Hyperlipidemia, unspecified; K21.9 Gastro-esophageal reflux disease without esophagitis; F17.218 Nicotine dependence, cigarettes, with other nicotine-induced disorders; G43.909 Migraine, unspecified, not intractable, without status migrainosus; K44.9 Diaphragmatic hernia without obstruction or gangrene; K76.0 Fatty (change of) liver, not elsewhere classified; G47.33 Obstructive sleep apnea (adult) (pediatric); Z79.02 Long term (current) use of antithrombotics/antiplatelets; Z79.4 Long term (current) use of insulin; Z79.899 Other long term (current) drug therapy; Z79.51 Long term (current) use of inhaled steroids; Z86.718 Personal history of other venous thrombosis and embolism; Z88.8 Allergy status to other drugs, medicaments and biological substances; Z88.1 Allergy status to other antibiotic agents; F41.9 Anxiety disorder, unspecified; F32.A Depression, unspecified
CPT/HCPCS: 11441; 42405; 88305; J2250; J3010

== ENCOUNTER → 2024-08-24 | Outpatient (REF) | payer OTHER, MEDICAID | LOC: M SFHCDERM 17:02 | PROVIDERS: ATTEND Physician Assistant | DX: T14.8XXA Other injury of unspecified body region, initial encounter (principal) ==

== ENCOUNTER → 2024-10-03 | Outpatient (CLI) | payer OTHER, MEDICAID, MEDICARE | LOC: M SOG 07:53 | PROVIDERS: ATTEND Physician Assistant | DX: S72.115D Nondisplaced fracture of greater trochanter of left femur, subsequent encounter for closed fracture with routine healing (principal); M16.12 Unilateral primary osteoarthritis, left hip ==

== ENCOUNTER → 2024-10-06 | Outpatient (CLI) | payer MEDICARE, MEDICAID ==
[~2024-10-06] MED LIST changes: +DULO1CAP6 PO; +FLUC-1 PO
[2024-10-06 12:37] LABS: HEMATOCRIT 43.8 % (36.0-47.0); MEAN CORPUSCULAR HEMOGLOBIN 26.6 pg (27.0-33.0); MEAN CORPUSCULAR VOLUME 83.1 fl (80.0-96.0); PLATELET COUNT, AUTOMATED 188 10^3/uL (150-450); RED BLOOD COUNT 5.27 10^6/uL (4.00-5.40); WHITE BLOOD COUNT 9.2 10^3/uL (4.0-10.0)
[2024-10-06 13:14] LABS: ALKALINE PHOSPHATASE 102 U/L (35-104); ALT/SGPT < 9 U/L (7.0-40); AST/SGOT 9 U/L (<34); BILIRUBIN,TOTAL 0.3 MG/DL (0.3-1.2); BLOOD UREA NITROGEN 19 MG/DL (9-23); CALCIUM LEVEL 8.9 MG/DL (8.5-10.1); CARBON DIOXIDE LEVEL 32 MMOL/L (20-31); CHLORIDE LEVEL 96 MMOL/L (98-107); CHOLESTEROL LEVEL 150 MG/DL (<200); CHOLESTEROL RISK RATIO 5.49 (<5); CREATININE FOR GFR 0.71 MG/DL (0.55-1.30); GLOMERULAR FILTRATION RATE > 60.0 (>51); GLUCOSE, FASTING 388 MG/DL (60-100); HDL CHOLESTEROL 27.3 MG/DL (>40); LDL CHOLESTEROL 78.3 MG/DL (<100); MAGNESIUM LEVEL 1.8 MG/DL (1.8-2.4); NON-HDL-C 122.7 MG/DL; POTASSIUM SERUM 4.6 MMOL/L (3.5-5.1); SODIUM LEVEL 134 MMOL/L (136-145); TOTAL PROTEIN 6.8 G/DL (5.7-8.2); TRIGLYCERIDES LEVEL 222 MG/DL (<150)
[2024-10-06 13:16] LABS: FREE T4 1.13 NG/DL (0.89-1.76); THYROID STIMULATING HORMONE 2.626 uIU/ML (0.55-4.78)
== END ==
LOC: M EKG 11:26
PROVIDERS: ATTEND Physician Assistant
DX: R00.2 Palpitations (principal); I50.32 Chronic diastolic (congestive) heart failure; E78.49 Other hyperlipidemia

== ENCOUNTER 2024-10-31 16:01 | Emergency (ER) | payer MEDICARE, MEDICAID ==
[~2024-10-31] VITALS: Ht 167.6 cm; Wt 108.8 kg
[~2024-10-31 16:01] MED LIST changes: +BASA100I SC; +HUMI40KI2 SC
[2024-10-31 16:04] VITALS: TEMP 97.3
[2024-10-31 18:16] LABS: BASO # 0.1 10^3/uL (0.0-0.2); BASO % 0.6 % (0.0-1.0); EOS # 0.4 10^3/uL (0.0-0.5); EOS % 5.6 % (0.0-3.0); HEMATOCRIT 36.9 % (36.0-47.0); HEMOGLOBIN 11.8 g/dl (12.0-15.5); LYMPH # 2.2 10^3/uL (1.5-5.0); LYMPH % 28.2 % (24.0-44.0); MEAN CORPUSCULAR HEMOGLOBIN 27.1 pg (27.0-33.0); MEAN CORPUSCULAR VOLUME 84.6 fl (80.0-96.0); MONO # 0.4 10^3/uL (0.0-0.8); MONO % 4.9 % (2.0-8.0); NEUTROPHILS # 4.7 10^3/uL (1.5-8.5); NEUTROPHILS % 60.3 % (36.0-66.0); PLATELET COUNT, AUTOMATED 184 10^3/uL (150-450); RED BLOOD COUNT 4.36 10^6/uL (4.00-5.40); WHITE BLOOD COUNT 7.7 10^3/uL (4.0-10.0)
[2024-10-31 18:32] LABS: ERYTHROCYTE SEDIMENTATION RATE 79 mm/hr (0-30)
[2024-10-31 18:35] LABS: BLOOD UREA NITROGEN 20 MG/DL (9-23); C REACTIVE PROTEIN QUANTITATIV 3.98 MG/DL (<1.0); CALCIUM LEVEL 8.4 MG/DL (8.5-10.1); CARBON DIOXIDE LEVEL 32 MMOL/L (20-31); CHLORIDE LEVEL 99 MMOL/L (98-107); CREATININE FOR GFR 0.67 MG/DL (0.55-1.30); GLOMERULAR FILTRATION RATE > 60.0 (>51); GLUCOSE, FASTING 219 MG/DL (60-100); POTASSIUM SERUM 4.2 MMOL/L (3.5-5.1); SODIUM LEVEL 137 MMOL/L (136-145)
[2024-10-31] MEDS ORDERED: ANEC4CRE3 TOP (21:37)
[2024-10-31] MEDS: LIDOCAINE 4% CREAM 5GM (LMX4) TOP ONE (21:44)
[2024-10-31 21:46] VITALS: BP 137/72; O2SAT 92
== END 2024-10-31 21:49 | disposition home or self-care (01) ==
LOC: M ED 16:01
DX: L30.9 Dermatitis, unspecified (principal); I25.2 Old myocardial infarction; E11.9 Type 2 diabetes mellitus without complications; I10 Essential (primary) hypertension; G47.33 Obstructive sleep apnea (adult) (pediatric); F41.9 Anxiety disorder, unspecified; F32.A Depression, unspecified; Z86.718 Personal history of other venous thrombosis and embolism; F17.200 Nicotine dependence, unspecified, uncomplicated; Z79.4 Long term (current) use of insulin; Z79.899 Other long term (current) drug therapy; Z88.8 Allergy status to other drugs, medicaments and biological substances; Z88.6 Allergy status to analgesic agent; Z88.1 Allergy status to other antibiotic agents

== ENCOUNTER → 2024-11-08 | Outpatient (CLI) | payer MEDICARE, MEDICAID | LOC: M SOG 11:42 | PROVIDERS: ATTEND Physician Assistant | DX: S72.115D Nondisplaced fracture of greater trochanter of left femur, subsequent encounter for closed fracture with routine healing (principal) ==

== ENCOUNTER 2024-11-30 16:22 | Emergency (ER) | payer MEDICARE, MEDICAID ==
[~2024-11-30] VITALS: Ht 167.6 cm; Wt 109.1 kg
[2024-11-30 16:38] VITALS: TEMP 97.9; O2SAT 94
[2024-11-30 17:10] LABS: BASO % 0.4 % (0.0-1.0); EOS # 0.3 10^3/uL (0.0-0.5); EOS % 3.3 % (0.0-3.0); HEMATOCRIT 43.1 % (36.0-47.0); HEMOGLOBIN 13.7 g/dl (12.0-15.5); LYMPH # 2.2 10^3/uL (1.5-5.0); LYMPH % 23.1 % (24.0-44.0); MEAN CORPUSCULAR HEMOGLOBIN 26.3 pg (27.0-33.0); MEAN CORPUSCULAR HGB CONC 31.8 g/dl (32.0-36.5); MEAN CORPUSCULAR VOLUME 82.7 fl (80.0-96.0); MONO # 0.6 10^3/uL (0.0-0.8); MONO % 6.8 % (2.0-8.0); NEUTROPHILS # 6.2 10^3/uL (1.5-8.5); NEUTROPHILS % 66.1 % (36.0-66.0); PLATELET COUNT, AUTOMATED 194 10^3/uL (150-450); RED BLOOD COUNT 5.21 10^6/uL (4.00-5.40); WHITE BLOOD COUNT 9.4 10^3/uL (4.0-10.0)
[2024-11-30 17:36] VITALS: BP 155/89
[2024-11-30] MEDS ORDERED: LIDOCAINE 2% 5ML JELLY UROJET TOP ONE (17:40)
[2024-11-30] MEDS ORDERED: ISOVUE-370 76% 100ML VIAL As Ordered ONE (17:43)
[2024-11-30 17:59] LABS: INR 0.98; PARTIAL THROMBOPLASTIN TIME 30.8 SECONDS (24.8-34.2); PROTHROMBIN TIME 13.3 SECONDS (12.5-14.5)
[2024-11-30 19:43] LABS: LIPASE 16 U/L (12-53)
[2024-11-30 19:45] LABS: ALBUMIN 3.2 G/DL (3.2-5.2); ALKALINE PHOSPHATASE 103 U/L (35-104); ALT/SGPT 10 U/L (7.0-40); AST/SGOT 20 U/L (<34); BILIRUBIN,DIRECT 0.1 MG/DL (<0.4); BILIRUBIN,TOTAL 0.4 MG/DL (0.3-1.2); BLOOD UREA NITROGEN 17 MG/DL (9-23); CALCIUM LEVEL 8.4 MG/DL (8.5-10.1); CARBON DIOXIDE LEVEL 30 MMOL/L (20-31); CHLORIDE LEVEL 99 MMOL/L (98-107); CK-MB VALUE MASS < 1.0 NG/ML (<3.6); CREATININE FOR GFR 0.61 MG/DL (0.55-1.30); GLOMERULAR FILTRATION RATE > 60.0 (>51); GLUCOSE, FASTING 265 MG/DL (60-100); POTASSIUM SERUM 4.1 MMOL/L (3.5-5.1); SODIUM LEVEL 136 MMOL/L (136-145); TOTAL PROTEIN 7.3 G/DL (5.7-8.2)
[2024-11-30 19:47] LABS: THYROXINE (T4) 7.5 UG/DL (4.5-10.9)
[2024-11-30 19:57] LABS: PROCALCITONIN 0.04 ng/ml
[2024-11-30 19:59] LABS: CPK CREATINE PHOSPHOKINASE 47 U/L (34-145); MB/CK RELATIVE INDEX 2.12 (< OR =4)
== END 2024-11-30 18:15 | disposition left against medical advice (07) ==
LOC: EDBD 16:22 → M ED 16:22
DX: R53.1 Weakness (principal); R06.00 Dyspnea, unspecified; R22.42 Localized swelling, mass and lump, left lower limb; Z53.9 Procedure and treatment not carried out, unspecified reason; E11.9 Type 2 diabetes mellitus without complications; I10 Essential (primary) hypertension; Z87.440 Personal history of urinary (tract) infections; F41.9 Anxiety disorder, unspecified; Z86.718 Personal history of other venous thrombosis and embolism; F17.200 Nicotine dependence, unspecified, uncomplicated; Z79.899 Other long term (current) drug therapy; Z88.8 Allergy status to other drugs, medicaments and biological substances; Z88.6 Allergy status to analgesic agent; Z88.1 Allergy status to other antibiotic agents
CPT/HCPCS: 70450; 71275; 74177; 80047; 80048; 80076; 82550; 82553; 83690; 83880; 84145; 84436; 84443; 84484; 85025; 85610; 85730; 93005; 93041; 94760; 99284; Q9967

== ENCOUNTER 2024-12-03 14:36 | Emergency (ER) | payer MEDICARE, MEDICAID ==
[~2024-12-03] VITALS: Ht 167.6 cm; Wt 113.6 kg
[2024-12-03 14:47] VITALS: TEMP 97.7; O2SAT 97
[2024-12-03] MEDS: ACETAMINOPHEN 325 MG TAB PO ONE (16:40)
[2024-12-03 17:14] LABS: BASO # 0.1 10^3/uL (0.0-0.2); BASO % 0.7 % (0.0-1.0); EOS # 0.4 10^3/uL (0.0-0.5); EOS % 4.1 % (0.0-3.0); HEMATOCRIT 40.9 % (36.0-47.0); HEMOGLOBIN 13.1 g/dl (12.0-15.5); LYMPH # 2.4 10^3/uL (1.5-5.0); LYMPH % 27.2 % (24.0-44.0); MEAN CORPUSCULAR HEMOGLOBIN 26.5 pg (27.0-33.0); MEAN CORPUSCULAR VOLUME 82.6 fl (80.0-96.0); MONO # 0.6 10^3/uL (0.0-0.8); MONO % 6.4 % (2.0-8.0); NEUTROPHILS # 5.4 10^3/uL (1.5-8.5); NEUTROPHILS % 61.4 % (36.0-66.0); PLATELET COUNT, AUTOMATED 195 10^3/uL (150-450); RED BLOOD COUNT 4.95 10^6/uL (4.00-5.40); WHITE BLOOD COUNT 8.8 10^3/uL (4.0-10.0)
[2024-12-03 17:31] LABS: BLOOD UREA NITROGEN 13 MG/DL (9-23); CALCIUM LEVEL 8.9 MG/DL (8.5-10.1); CARBON DIOXIDE LEVEL 32 MMOL/L (20-31); CHLORIDE LEVEL 99 MMOL/L (98-107); CREATININE FOR GFR 0.65 MG/DL (0.55-1.30); GLOMERULAR FILTRATION RATE > 60.0 (>51); GLUCOSE, FASTING 246 MG/DL (60-100); POTASSIUM SERUM 4.2 MMOL/L (3.5-5.1); SODIUM LEVEL 136 MMOL/L (136-145)
[2024-12-03 17:45] VITALS: BP 169/72
== END 2024-12-03 18:15 | disposition home or self-care (01) ==
LOC: M ED 14:36
DX: R42 Dizziness and giddiness (principal); E11.9 Type 2 diabetes mellitus without complications; I25.10 Atherosclerotic heart disease of native coronary artery without angina pectoris; I25.2 Old myocardial infarction; I10 Essential (primary) hypertension; E78.5 Hyperlipidemia, unspecified; F41.9 Anxiety disorder, unspecified; F32.A Depression, unspecified; M19.90 Unspecified osteoarthritis, unspecified site; G43.909 Migraine, unspecified, not intractable, without status migrainosus; G47.33 Obstructive sleep apnea (adult) (pediatric); K21.9 Gastro-esophageal reflux disease without esophagitis; Z87.01 Personal history of pneumonia (recurrent); Z86.718 Personal history of other venous thrombosis and embolism; F17.200 Nicotine dependence, unspecified, uncomplicated; Z79.899 Other long term (current) drug therapy; Z79.620 Long term (current) use of immunosuppressive biologic

== ENCOUNTER → 2024-12-18 | Outpatient (REF) | payer MEDICARE, MEDICAID | LOC: M SFHCWAGY 14:54 | PROVIDERS: ATTEND Internal Medicine Infectious Disease | DX: L12.0 Bullous pemphigoid (principal); B95.7 Other staphylococcus as the cause of diseases classified elsewhere ==

== ENCOUNTER → 2025-01-13 | Outpatient (CLI) | payer MEDICARE, MEDICAID ==
[~2025-01-13] MED LIST changes: +MAG30ORA18 PO
== END ==
LOC: M LAB 13:56
PROVIDERS: ATTEND Physician Assistant
DX: R21 Rash and other nonspecific skin eruption (principal)

== ENCOUNTER → 2025-03-14 | Outpatient (CLI) | payer MEDICARE, MEDICAID | LOC: M SOG 07:26 | PROVIDERS: ATTEND Physician Assistant | DX: S72.115D Nondisplaced fracture of greater trochanter of left femur, subsequent encounter for closed fracture with routine healing (principal); M25.561 Pain in right knee; W18.30XD Fall on same level, unspecified, subsequent encounter ==

== ENCOUNTER 2025-03-19 12:17 | Outpatient (RCR) | payer MEDICARE, MEDICAID | END 2025-04-05 | LOC: M PT 12:17 | PROVIDERS: ATTEND Physician Assistant | DX: M25.552 Pain in left hip (principal) ==

== ENCOUNTER 2025-03-25 17:40 | Emergency (ER) | payer MEDICARE, MEDICAID ==
[~2025-03-25] VITALS: Ht 170.2 cm; Wt 120.5 kg
[2025-03-25 17:50] VITALS: BP 164/101; TEMP 98; O2SAT 98
[2025-03-25 19:20] LABS: BASO # 0.1 10^3/uL (0.0-0.2); BASO % 0.6 % (0.0-1.0); EOS # 0.2 10^3/uL (0.0-0.5); EOS % 1.8 % (0.0-3.0); LYMPH # 1.8 10^3/uL (1.5-5.0); LYMPH % 16.3 % (24.0-44.0); MONO # 0.5 10^3/uL (0.0-0.8); MONO % 4.7 % (2.0-8.0); NEUTROPHILS # 8.3 10^3/uL (1.5-8.5); NEUTROPHILS % 76.3 % (36.0-66.0); PLATELET COUNT, AUTOMATED 192 10^3/uL (150-450)
[2025-03-25] MEDS ORDERED: NS (Normal Saline) 0.9% 1,000 ML IV ONE (19:30)
[2025-03-25 19:43] LABS: ALT/SGPT < 9 U/L (7.0-40); AST/SGOT 28 U/L (<34); CALCIUM LEVEL 9.0 MG/DL (8.5-10.1); CARBON DIOXIDE LEVEL 30 MMOL/L (20-31); CHLORIDE LEVEL 99 MMOL/L (98-107); CREATININE FOR GFR 0.71 MG/DL (0.55-1.30); GLOMERULAR FILTRATION RATE > 90.0 (>51); POTASSIUM SERUM 4.6 MMOL/L (3.5-5.1); SODIUM LEVEL 136 MMOL/L (136-145)
[2025-03-25 19:49] LABS: VENOUS BASE EXCESS 2.5 (-2.0-2.0); VENOUS HCO3 29.7 MMOL/L (23.0-27.0); VENOUS O2 SATURATION 60.8 % (60.0-80.0); VENOUS PARTIAL PRESSURE CO2 56.0 mmHg (38.0-50.0); VENOUS PARTIAL PRESSURE O2 30.9 mmHg (30.0-50.0); VENOUS PH 7.342 UNITS (7.330-7.430); VENOUS STANDARD HCO3 25.7 MMOL/L; VENOUS TOTAL CO2 31.4 MMOL/L (24.0-28.0)
[2025-03-25] MEDS ORDERED: ACETAMINOPHEN *IV* 1,000 MG in IV 1 EA IV ONE (19:50)
[2025-03-25 19:54] LABS: CK-MB VALUE MASS 2.4 NG/ML (<3.6)
[2025-03-25 19:55] LABS: ACETONE/KETONE 0.09 MMOL/L (0.02-0.27)
[2025-03-25 19:58] LABS: CPK CREATINE PHOSPHOKINASE 37 U/L (34-145); MB/CK RELATIVE INDEX 6.48 (< OR =4)
[2025-03-25] MEDS ORDERED: HumuLIN R (REGULAR) INSULIN (NovoLIN R) **100 U/ML** PER UNIT SC STA (21:36)
[2025-03-25] MEDS ORDERED: MORPHINE SULFATE TAB EXT REL 30 MG PO ONE (21:40)
[2025-03-25] MEDS ORDERED: HumuLIN N INSULIN (NovoLIN N) PER UNIT SC ONE (21:45)
== END 2025-03-25 21:57 | disposition left against medical advice (07) ==
LOC: M ED 17:40
DX: R41.0 Disorientation, unspecified (principal); K59.00 Constipation, unspecified; Z53.9 Procedure and treatment not carried out, unspecified reason; I11.0 Hypertensive heart disease with heart failure; E11.9 Type 2 diabetes mellitus without complications; E07.9 Disorder of thyroid, unspecified; K21.9 Gastro-esophageal reflux disease without esophagitis; J45.909 Unspecified asthma, uncomplicated; G43.909 Migraine, unspecified, not intractable, without status migrainosus; F17.200 Nicotine dependence, unspecified, uncomplicated; Z79.4 Long term (current) use of insulin; Z79.899 Other long term (current) drug therapy; Z88.8 Allergy status to other drugs, medicaments and biological substances; Z88.6 Allergy status to analgesic agent; Z88.1 Allergy status to other antibiotic agents

== ENCOUNTER → 2025-03-27 | Outpatient (CLI) | payer MEDICARE, MEDICAID ==
[~2025-03-27] MED LIST changes: +SODIUM CHLORIDE 0.9% INJ 10 ML SYR IV PRN; +SODIUM CHLORIDE 0.9% INJ 10 ML SYR IV SCH
== END ==
LOC: M CARPUL 14:32
PROVIDERS: ATTEND Physician Assistant
DX: I50.32 Chronic diastolic (congestive) heart failure (principal)

== ENCOUNTER 2025-04-26 09:54 | Outpatient (RCR) | payer MEDICARE, MEDICAID ==
[~2025-04-26 09:54] MED LIST changes: -SODIUM CHLORIDE 0.9% INJ 10 ML SYR IV PRN; -SODIUM CHLORIDE 0.9% INJ 10 ML SYR IV SCH
== END 2025-05-06 ==
LOC: M PT 09:54
PROVIDERS: ATTEND Physician Assistant
DX: S72.115D Nondisplaced fracture of greater trochanter of left femur, subsequent encounter for closed fracture with routine healing (principal)

== ENCOUNTER → 2025-05-01 | Outpatient (CLI) | payer MEDICARE, MEDICAID ==
[2025-05-01 13:36] LABS: CALCIUM LEVEL 8.7 MG/DL (8.5-10.1); CARBON DIOXIDE LEVEL 34.0 MMOL/L (20-31); CHLORIDE LEVEL 100.0 MMOL/L (98-107); CREATININE FOR GFR 0.77 MG/DL (0.55-1.30); GLOMERULAR FILTRATION RATE 88.8 (>51); POTASSIUM SERUM 4.0 MMOL/L (3.5-5.1); SODIUM LEVEL 139.0 MMOL/L (136-145)
== END ==
LOC: M LAB 12:07
PROVIDERS: ATTEND Physician Assistant
DX: I50.32 Chronic diastolic (congestive) heart failure (principal)

== ENCOUNTER → 2025-05-01 | Outpatient (CLI) | payer MEDICARE, MEDICAID | LOC: M RAD 12:10 | PROVIDERS: ATTEND Nurse Practitioner Family | DX: M79.673 Pain in unspecified foot (principal) ==

== ENCOUNTER 2025-05-31 13:03 | Outpatient (RCR) | payer MEDICARE, MEDICAID ==
[~2025-05-31 13:03] MED LIST changes: +ZOLP10TA11 PO; -ZOLP10TA2 PO
== END 2025-06-05 ==
LOC: M PT 13:03
PROVIDERS: ATTEND Physician Assistant Medical
DX: G90.522 Complex regional pain syndrome I of left lower limb (principal); R26.89 Other abnormalities of gait and mobility

== ENCOUNTER → 2025-06-04 | Outpatient (REF) | payer MEDICARE, MEDICAID ==
[2025-06-05 15:01] LABS: BVAB 2 NEGATIVE (NEGATIVE)
[2025-06-05 15:19] LABS: CANDIDA GLABRATA NAA NOT DETECTED (NOT DETECTED); TRICH VAG BY NAA NOT DETECTED (NOT DETECTED)
[2025-06-05 15:53] LABS: CHLAMYDIA TRACHOMATIS NAA NOT DETECTED (NOT DETECTED)
== END ==
LOC: M SMT 12:34
PROVIDERS: ATTEND Nurse Practitioner Family
DX: N89.8 Other specified noninflammatory disorders of vagina (principal)

== ENCOUNTER 2025-07-05 08:30 | Outpatient (RCR) | payer MEDICARE, MEDICAID | END 2025-07-06 | LOC: M PT 08:30 | PROVIDERS: ATTEND Physician Assistant Medical | DX: G90.522 Complex regional pain syndrome I of left lower limb (principal); R26.89 Other abnormalities of gait and mobility ==

== ENCOUNTER → 2025-07-11 | Outpatient (CLI) | payer MEDICARE, MEDICAID ==
[2025-07-11 15:13] LABS: CALCIUM LEVEL 8.3 MG/DL (8.5-10.1); CARBON DIOXIDE LEVEL 35.0 MMOL/L (20-31); CHLORIDE LEVEL 95.0 MMOL/L (98-107); CREATININE FOR GFR 0.95 MG/DL (0.55-1.30); GLOMERULAR FILTRATION RATE 69.0 (>51); POTASSIUM SERUM 4.1 MMOL/L (3.5-5.1); SODIUM LEVEL 134.0 MMOL/L (136-145)
== END ==
LOC: M LAB 14:06
PROVIDERS: ATTEND Internal Medicine Cardiovascular Disease
DX: I50.32 Chronic diastolic (congestive) heart failure (principal)

== ENCOUNTER 2025-07-17 12:10 | Outpatient (RCR) | payer MEDICARE, MEDICAID | END 2025-08-05 | LOC: M PT 12:10 | PROVIDERS: ATTEND Physician Assistant Medical | DX: G90.522 Complex regional pain syndrome I of left lower limb (principal); R26.89 Other abnormalities of gait and mobility ==

== ENCOUNTER → 2025-07-31 | Outpatient (CLI) | payer MEDICARE, MEDICAID | LOC: M SOG 07:41 | PROVIDERS: ATTEND Physician Assistant | DX: M79.641 Pain in right hand (principal) ==

== ENCOUNTER → 2025-08-07 | Outpatient (REF) | payer MEDICARE, MEDICAID | LOC: M LAB REF 17:27 | PROVIDERS: ATTEND Podiatrist | DX: L03.119 Cellulitis of unspecified part of limb (principal) ==

== ENCOUNTER → 2025-08-17 | Outpatient (CLI) | payer MEDICARE, MEDICAID ==
[2025-08-17 15:09] LABS: INR 1.03
[2025-08-17 15:10] LABS: PLATELET COUNT, AUTOMATED 207 10^3/uL (150-450)
[2025-08-17 15:35] LABS: ALT/SGPT < 9 U/L (7.0-40); AST/SGOT 14 U/L (<34); CALCIUM LEVEL 8.7 MG/DL (8.5-10.1); CARBON DIOXIDE LEVEL 32 MMOL/L (20-31); CHLORIDE LEVEL 100 MMOL/L (98-107); CREATININE FOR GFR 0.82 MG/DL (0.55-1.30); GLOMERULAR FILTRATION RATE 82.4 (>51); IRON (FE) 30 UG/DL (50-170); PERCENT SATURATION 8.5 % (13.2-45.0); POTASSIUM SERUM 4.3 MMOL/L (3.5-5.1); SODIUM LEVEL 136 MMOL/L (136-145)
[2025-08-17 16:16] LABS: HEPATITIS C VIRUS ABY INDEX < 0.02 INDEX (<0.8)
[2025-08-19 08:53] LABS: HEPATITIS B SURF AB QUANT 72 mIU/mL (> OR = 10)
[2025-08-21 00:31] LABS: LIVER-KIDNEY MICROSOMAL ABY <= 20.0 U (<=20.0)
== END ==
LOC: M LAB 14:11
PROVIDERS: ATTEND Nurse Practitioner Family
DX: K74.60 Unspecified cirrhosis of liver (principal); Z11.59 Encounter for screening for other viral diseases

== ENCOUNTER 2025-09-01 09:12 | Emergency (ER) | payer MEDICARE, MEDICAID ==
[~2025-09-01] VITALS: Ht 167.6 cm; Wt 130.7 kg
[2025-09-01 10:06] LABS: BASO # 0.1 10^3/uL (0.0-0.2); BASO % 0.5 % (0.0-1.0); EOS # 0.2 10^3/uL (0.0-0.5); EOS % 2.1 % (0.0-3.0); LYMPH # 1.5 10^3/uL (1.5-5.0); LYMPH % 14.1 % (24.0-44.0); MONO # 0.6 10^3/uL (0.0-0.8); MONO % 5.6 % (2.0-8.0); NEUTROPHILS # 8.1 10^3/uL (1.5-8.5); NEUTROPHILS % 77.4 % (36.0-66.0); PLATELET COUNT, AUTOMATED 202 10^3/uL (150-450)
[2025-09-01 11:24] LABS: ALT/SGPT < 9 U/L (7.0-40); AST/SGOT 18 U/L (<34); CALCIUM LEVEL 8.9 MG/DL (8.3-10.6); CARBON DIOXIDE LEVEL 33 MMOL/L (20-31); CHLORIDE LEVEL 101 MMOL/L (98-107); CREATININE FOR GFR 0.72 MG/DL (0.55-1.30); GLOMERULAR FILTRATION RATE > 90.0 (>45); POTASSIUM SERUM 4.3 MMOL/L (3.5-5.1); SODIUM LEVEL 139 MMOL/L (136-145)
[2025-09-01 11:46] VITALS: BP 159/74; TEMP 99.4; O2SAT 93
[2025-09-01] MEDS ORDERED: GASTROGRAFIN SOLUTION 30ML PO SCH (12:30)
[2025-09-05] MEDS ORDERED: NOVOINJ13 SC (11:38)
[2025-09-05] MEDS ORDERED: GENT1OI TOP (11:38)
[2025-09-05] MEDS ORDERED: BENA25CA4 PO (11:38)
[2025-09-05] MEDS ORDERED: DOXY100C3 PO (11:38)
[2025-09-05] MEDS ORDERED: LEVO88TA3 PO (11:38)
[2025-09-05] MEDS ORDERED: LIDO4CRE12 TOP (11:38)
[2025-09-05] MEDS ORDERED: HUMU500S SC (11:38)
[2025-09-05] MEDS ORDERED: SPIR-10 PO (11:40)
== END 2025-09-01 13:08 | disposition left against medical advice (07) ==
LOC: M ED 09:12
DX: R10.9 Unspecified abdominal pain (principal); Z53.9 Procedure and treatment not carried out, unspecified reason; I11.0 Hypertensive heart disease with heart failure; E11.51 Type 2 diabetes mellitus with diabetic peripheral angiopathy without gangrene; E78.5 Hyperlipidemia, unspecified; E66.9 Obesity, unspecified; G47.33 Obstructive sleep apnea (adult) (pediatric); K75.81 Nonalcoholic steatohepatitis (NASH); Z86.718 Personal history of other venous thrombosis and embolism; Z86.14 Personal history of Methicillin resistant Staphylococcus aureus infection; F17.200 Nicotine dependence, unspecified, uncomplicated; Z79.84 Long term (current) use of oral hypoglycemic drugs; Z79.899 Other long term (current) drug therapy; Z88.8 Allergy status to other drugs, medicaments and biological substances; Z88.6 Allergy status to analgesic agent; Z88.1 Allergy status to other antibiotic agents
CPT/HCPCS: 71045; 80048; 80076; 83880; 85025; 87486; 87581; 87633; 87798; 93005; 93041; 94760; 99285; Q9963